=== PATIENT | male | born 1950 | race Caucasian/White ===

== ENCOUNTER 2017-02-22 21:40 | Inpatient (IN) | payer MEDICARE, MEDICAID ==
[2017-02-22 22:22] VITALS: BP 135/85
[2017-02-23] MEDS ORDERED: Magnesium Hydroxide (MOM) 30 mL UDC PO PRN (02:24)
[2017-02-23] MEDS ORDERED: Maalox 30 mL Cup PO PRN (02:24)
[2017-02-23] MEDS: INSULIN ASPART, RECOMBINANT 100 UNITS/ML SUBQ SCH ×4 (06:33→21:23)
[2017-02-23] MEDS: Lactulose 10 Gm/15 mL 30mL UDC PO SCH ×2 (08:50→16:23)
[2017-02-23] MEDS: Multivitamin Tab PO SCH (08:51)
--- NOTE | 2017-02-23 13:06 | History & Physical ---
ADMIT DATE: PATIENT IDENTIFICATION: A 67-year-old male. CHIEF COMPLAINT: "I am fine." HISTORY OF PRESENT ILLNESS: A 67-year-old male, who was admitted at [facility] under the care of ____ for further management of pneumonia associated with respiratory failure followed by a stroke and chronic alcoholism. The patient was noted to have a significant amount of psychiatric history as well. The patient was seen by Dr. Corona, who recommended inpatient psychiatric treatment. The patient is transferred for inpatient psychiatric treatment. PAST MEDICAL HISTORY: Remarkable for: 1. Diabetes. 2. Chronic alcoholism. 3. CVA. 4. DJD. 5. Psychotic disorder. MEDICATIONS AT HOME: At the time of transfer; sliding scale insulin, DuoNeb nebulizer, lorazepam, lactulose, milk of magnesium, multivitamin, Seroquel, vitamin B12, folic acid, Ambien and Tylenol. ALLERGIES: The patient is not allergic to any medication. SOCIAL HISTORY: The patient was living by himself. The patient has history of alcohol use along with smoking cigarette. 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 The patient does not take any street drug use. FAMILY MEDICAL HISTORY: Remarkable for diabetes and hypertension. REVIEW OF SYSTEMS: According to him, he feels better and he wants to go home. Denies any chest pain, short of breath, palpitation, dizziness, nausea, vomiting, or diarrhea. No dysuria, hematuria, hematochezia, or melena. No history of any seizure or syncopal episode. No weight loss or weight gain. No history of any tingling or numbness. PHYSICAL EXAMINATION: GENERAL: The patient is alert, awake, lying in the bed without any acute distress. VITAL SIGNS: Temperature 97.3, pulse 94, respiratory rate 20, blood pressure 140/86. SKIN: Warm to touch. Adequate skin turgor. No petechiae, no purpura. HEENT: Normocephalic, atraumatic. Extraocular muscles are intact. Tongue was pink and coated. Oropharynx is congested. Nasal mucosa congested. NECK: Supple. No JVD, no hepatojugular reflux, no lymphadenopathy, thyromegaly or carotid bruit. HEART: Both heart sounds are regular. Grade 2/6 systolic murmur noted. CHEST AND LUNGS: Equal in expansion with expiratory wheezing. ABDOMEN: Soft. No guarding, no rigidity. Liver and spleen not palpable. No palpable mass. EXTREMITIES: No edema, no cyanosis, no clubbing. Peripheral +1. No calf tenderness noted. NEUROLOGIC: The patient is alert, awake, follows commands. Decreased power throughout the upper and lower extremities noted. AVAILABLE DIAGNOSTIC DATA: Performed at [facility] has been reviewed. CLINICAL IMPRESSIONS: 1. Psychotic disorder. 2. Diabetes mellitus. 3. Status post extubation for respiratory failure. 4. Left lower lobe pneumonia. 5. Alcoholism. 6. Cirrhosis of liver. 7. Degenerative joint disease. 8. Fall risk. 9. Debility. PLAN: The patient is admitted at this time to Geropsych Unit. Psychiatric management by psychiatrist. Will have Glucoscan and sliding scale insulin, glycohemoglobin A1c will be checked. Multivitamin, folic acid, thiamine will be given to the patient along with psychiatric management by psychiatrist. The patient will be given nebulizer treatment and we will add steroid inhaler as well. The patient is to have fall precautions as well as followup lab and we will continue to follow this patient during the stay at the Geropsych Unit. JOB# [id number]
[2017-02-23] MEDS: Albuterol/Ipratropium Neb 3 ML AERS HHN SCH (18:47)
[2017-02-23 20:30] LABS: URINE BILIRUBIN NEGATIVE (NEGATIVE); URINE BLOOD NEGATIVE (NEGATIVE); URINE GLUCOSE (UA) NEGATIVE (NEGATIVE); URINE KETONE TRACE mg/dL (NEGATIVE); URINE PH 5.5 (4.6 - 8.0); URINE PROTEIN NEGATIVE (NEGATIVE); URINE UROBILINOGEN 0.2 E.U./dL (0.2 - 1.0)
[2017-02-23 20:33] LABS: URINE COLOR YELLOW
[2017-02-23 20:34] LABS: URINE RBC 0-2 /hpf (0-5); URINE WBC 0-2 /hpf (0-5)
[2017-02-23 20:35] LABS: URINE BACTERIA FEW /hpf (NONE SEEN); URINE EPITHELIAL CELLS OCCASIONAL /lpf (FEW)
--- NOTE | 2017-02-23 23:44 | Psychosocial Evaluation ---
DATE OF SERVICE: 02/23/2017 JUSTIFICATION FOR HOSPITALIZATION: Bizarre behaviors, aggressive behaviors, disorganized, confused, and agitated. CHIEF COMPLAINT: "I'm here for nervous breakdown." HISTORY OF PRESENT ILLNESS: This is a 67-year-old male seen at a subacute facility, agitated, delirious, disorganized, thrashing around and restraint, combative towards staff. The patient is AO to name. He states it is 1979, the month is July. He states he is here for "a nervous breakdown." PAST PSYCHIATRIC HISTORY: Unclear per . He was an alcoholic. FAMILY HISTORY: Unknown. SOCIAL HISTORY: . I did speak with the a few days ago. The patient with a long history of alcoholism many, many years. MEDICAL HISTORY: Please see full H and P. MEDICATIONS: Noted. MENTAL STATUS EXAMINATION: Stated age, in a Nori chair, restless, disorganized, and disoriented. No overt SI or HI, mumbling to himself. Poor insight, poor judgment, poor impulse control, and unpredictable behaviors. PROVISIONAL DIAGNOSES: Psychosis, unspecified; also delirium; also alcohol use disorder, severe. MEDICAL DIAGNOSIS: Please see full H and P. ESTIMATED LENGTH OF STAY: 5-7 days. ASSESSMENT: The patient is requiring inpatient hospitalization, disorganized, agitated, cannot be cared for at a lower level of care due to his aggressive and combative behaviors. PLAN: We will continue medications, titrate medications as directed. MEDICATIONS: Reviewed in details. CONDITIONS FOR DISCHARGE: Improved mood, improved affect, better control of his psychotic and agitated symptoms. [facility]# [id number]
[2017-02-24] MEDS: Albuterol/Ipratropium Neb 3 ML AERS HHN SCH ×4 (00:36→18:36)
[2017-02-24] MEDS: INSULIN ASPART, RECOMBINANT 100 UNITS/ML SUBQ SCH ×3 (06:35→17:17)
[2017-02-24] MEDS: Multivitamin Tab PO SCH (09:04)
[2017-02-24] MEDS: Lactulose 10 Gm/15 mL 30mL UDC PO SCH (09:06)
--- NOTE | 2017-02-24 09:39 | Diagnostic Imaging Report ---
KUB single view HISTORY: Distended abdomen COMPARISON: None FINDINGS: Multiple distended loops of bowel are seen including small bowel loops. Ill-defined small bowel loops are seen along the right hemiabdomen. Moderate stool is noted. No gross free air identified. IMPRESSION: Multiple distended loops of bowel with ill-defined small bowel loops along the right hemiabdomen. Findings may be due to small bowel obstruction. A Severe ileus is less likely. Recommend clinical correlation and follow up. Consider further assessment CT with oral contrast or small bowel follow-through procedure.
[2017-02-24] MEDS ORDERED: Lactulose 10 Gm/15 mL 30mL UDC PO SCH (14:00)
[2017-02-24 18:36] LABS: % EOSINOPHILS 4.5 % (0.0-5.0); % LYMPHOCYTES 15.6 % (20.0-50.0); % MONOCYTES 5.6 % (2.0-10.0); % NEUTROPHILS 74.3 % (40.0-80.0); MEAN CELL VOLUME 93.5 fl (80-99); MEAN CORPUSCULAR HEMOGLOBIN 30.9 pg (27.0-31.0); MEAN CORPUSCULAR HGB CONC 33.1 pg (28.0-36.0); MEAN PLATELET VOLUME 7.7 fl; NEUTROPHILE ABSOLUTE 9.2 Th/cmm (1.8-8.0); PLATELET COUNT 446 Th/cmm (150-400); RED BLOOD COUNT 5.61 Mil/cmm (3.80-5.80); RED CELL DISTRIBUTION WIDTH 13.3 % (11.5-20.0)
[2017-02-24 18:40] LABS: WHITE BLOOD COUNT 12.5 Th/cmm (4.8-10.8)
[2017-02-24 18:41] LABS: HEMATOCRIT 52.5 % (41.0-60); HEMOGLOBIN 17.4 gm/dL (12-16)
[2017-02-24 18:47] LABS: ALB/GLOB RATIO 1.1 (1.0-1.8); ALKALINE PHOSPHATASE 103 U/L (34-104); ANION GAP 16.4 (7.0-16.0); BILIRUBIN,TOTAL 0.7 mg/dL (0.3-1.0); BUN - UREA NITROGEN 17 mg/dL (7-25); BUN/CREATININE RATIO 13.1; CALCIUM SERUM 10.6 mg/dL (8.6-10.3); CARBON DIOXIDE 22.1 mEq/L (21.0-31.0); CHLORIDE 98 mEq/L (98-107); CREATININE - SERUM 1.3 mg/dL (0.7-1.3); GLUCOSE 142 mg/dL (70-105); POTASSIUM SERUM 3.5 mEq/L (3.5-5.1); SGOT 21 U/L (13-39); SGPT/ALT 15 U/L (7-52); SODIUM SERUM 133 mEq/L (136-145)
--- NOTE | 2017-02-24 20:49 | Progress Notes ---
DATE: The patient was seen and evaluated. The patient's chart reviewed. This is Dr. Caputo covering for Dr. Corona. SUBJECTIVE: Overnight nursing staff reported the patient continues to be nonverbal, still detoxing. Today on [id number] evaluation, the patient is still observed to be having some mild detox symptoms, minimally interactive. MENTAL STATUS EXAMINATION: In Nori chair, restless, disorganized. No overt SI, HI, but continues to mumble to himself. No side effects of the medications. He continues to mumble to himself, easily irritable. ASSESSMENT AND PLAN: The patient is a 67-year-old male who continues to be still detoxing although vital signs have been stable, tolerating the addition of quetiapine with no complications. We will continue with primary psychiatrist's treatment plan and goals as he continues to withdraw ____ detox protocol as he continues to be irritable, high risk procedures. JOB# [id number]
--- NOTE | 2017-02-25 03:39 | Progress Notes ---
DATE: 02/24/2017 IDENTIFICATION: A 67-year-old male. SUBJECTIVE: The patient seen and examined. The patient was tachycardic earlier. The patient's abdomen was distended. After straight cathing 800 mL of urine and the patient had two bowel movements, the patient is very comfortable. Heart rate is back to normal. Discussed with nursing staff about the treatment plan. The patient is currently lying in the bed without any discomfort. PHYSICAL EXAMINATION: VITAL SIGNS: On today's exam; temperature 98.2, pulse 78, respiratory rate was 18, blood pressure 132/80. HEENT: No facial asymmetry. Poor dentition noted. NECK: Supple. No JVD, no lymphadenopathy. HEART: Both heart sounds are regular. CHEST: Lungs equal in expansion with mild expiratory wheezing. ABDOMEN: Slightly distended, but soft. Bowel sounds are present. EXTREMITIES: No edema. NEUROLOGIC: Alert, awake, follows commands. CLINICAL IMPRESSION: 1. Abdominal distention with ileus, resolving since the patient has a bowel movement. 2. Diabetes mellitus. 3. Chronic alcoholism. 4. History of cerebrovascular accident. 5. Degenerative joint disease. 6. Cirrhosis of liver. 7. Left lower lobe pneumonia, status post completed antibiotic. 8. Fall risk. 9. Debility. PLAN: 1. Psychiatric evaluation management deferred to psychiatrist. 2. The patient did have a bowel movement and looks comfortable. Heart rate is back to normal. I will clinically watch the patient for signs and symptoms of obstruction for now. Stool softener will be added as well. The patient is to have p.r.n. straight cath if needed. The patient will be encouraged to drink plenty of fluid at this time. Continue other medicines as prescribed. The patient will have followup labs and we will continue to follow this patient at Geropsych Unit. Care plan has been reviewed and discussed with staff. JOB# [id number]
--- NOTE | 2017-02-25 08:07 | Diagnostic Imaging Report ---
Portable chest x-ray Time: 1924 History: Pneumonia Allowing for portable technique the heart size is normal. No focal pulmonary parenchymal processes. No hilar or mediastinal abnormalities. Impression: No acute abnormalities.
--- NOTE | 2017-02-25 08:14 | Diagnostic Imaging Report ---
KUB portable HISTORY: No interval in output Findings: Portable examination of the abdomen abdomen at 1925 hours reviewed. The study demonstrates distention of small bowel loops with air-fluid levels suggestive of small bowel obstruction. Bony structures intact. Large amount of fecal content is noted in the rectum. IMPRESSION: Most likely small bowel obstruction. Distal fecal impaction the rectum.
== END 2017-02-24 21:24 | disposition short-term general hospital (02) | DRG 885 ==
LOC: GERO 21:40
PROVIDERS: ADMIT Psychiatry & Neurology Psychiatry; ATTEND Psychiatry & Neurology Psychiatry
DX: F29 Unspecified psychosis not due to a substance or known physiological condition (principal); J18.1 Lobar pneumonia, unspecified organism; E11.9 Type 2 diabetes mellitus without complications; K74.60 Unspecified cirrhosis of liver; K56.7 Ileus, unspecified; R41.0 Disorientation, unspecified; R00.0 Tachycardia, unspecified; F10.20 Alcohol dependence, uncomplicated; F17.210 Nicotine dependence, cigarettes, uncomplicated; M19.90 Unspecified osteoarthritis, unspecified site; Z91.81 History of falling; Z86.73 Personal history of transient ischemic attack (TIA), and cerebral infarction without residual deficits; Z79.4 Long term (current) use of insulin; Z83.3 Family history of diabetes mellitus; Z82.49 Family history of ischemic heart disease and other diseases of the circulatory system
CPT/HCPCS: 36415-UA; 71010-TC; 74000-TC; 80053-TC; 81001-TC; 82150-TC; 82948-90; 83690-TC; 85025-TC; 93005; 94640; 94760; J1815; Z7610

== ENCOUNTER 2017-02-24 21:18 | Inpatient (IN) | payer MEDICARE, MEDICAID ==
[2017-02-24] MEDS: D5-0.45NS 1,000 ML IV SCH (22:00)
[2017-02-24 22:09] LABS: pH 7.34 (7.35-7.45)
[2017-02-24 22:10] LABS: BE(B) -7.5 mEq/L (-3.0-3.0); HCO3 18.7 mEq/L (20.0-26.0)
[2017-02-24 22:11] LABS: ALLEN TEST yes; FIO2 44
[2017-02-24] MEDS ORDERED: D5-0.45NS 1,000 ML IV SCH (22:30)
[2017-02-24] MEDS ORDERED: Gentamicin 80 mg/2mL Vial ONE (22:47)
[2017-02-24 22:48] VITALS: BP 149/122
[2017-02-24] MEDS: Gentamicin 160 MG in Sodium Chloride 0.9% 100 ML IV SCH (23:02)
[2017-02-24 23:31] LABS: HEMATOCRIT 50.1 % (41.0-60); HEMOGLOBIN 16.9 gm/dL (12-16); MEAN CELL VOLUME 91.9 fl (80-99); MEAN CORPUSCULAR HEMOGLOBIN 30.9 pg (27.0-31.0); MEAN CORPUSCULAR HGB CONC 33.7 pg (28.0-36.0); MEAN PLATELET VOLUME 7.7 fl; PLATELET COUNT 492 Th/cmm (150-400); RED BLOOD COUNT 5.45 Mil/cmm (3.80-5.80); RED CELL DISTRIBUTION WIDTH 13.3 % (11.5-20.0)
[2017-02-24 23:36] LABS: WHITE BLOOD COUNT 18.3 Th/cmm (4.8-10.8)
[2017-02-24] MEDS ORDERED: Diatrizoate Meglumine/Diatri 30 mL Sol ONE (23:38)
[2017-02-24 23:46] LABS: ALB/GLOB RATIO 1.1 (1.0-1.8); ANION GAP 15.7 (7.0-16.0); BUN/CREATININE RATIO 11.3; CALCIUM SERUM 9.9 mg/dL (8.6-10.3); CARBON DIOXIDE 23.9 mEq/L (21.0-31.0); CREATININE - SERUM 1.6 mg/dL (0.7-1.3); POTASSIUM SERUM 3.6 mEq/L (3.5-5.1)
[2017-02-25 00:11] LABS: URINE BILIRUBIN MODERATE (NEGATIVE); URINE BLOOD LARGE (NEGATIVE); URINE GLUCOSE (UA) NEGATIVE (NEGATIVE); URINE KETONE TRACE mg/dL (NEGATIVE); URINE PROTEIN 100 mg/dL (NEGATIVE)
[2017-02-25] MEDS ORDERED: methylPREDNISolone SS 40 mg Vial ONE (00:13)
[2017-02-25 00:17] LABS: URINE COLOR BROWN
[2017-02-25 00:31] LABS: URINE EPITHELIAL CELLS FEW /lpf (FEW); URINE RBC 25-50 /hpf (0-5)
[2017-02-25 00:32] LABS: URINE BACTERIA FEW /hpf (NONE SEEN)
[2017-02-25 00:51] LABS: BAND NEUTROPHILE 5 % (0-10); NEUTROPHILS 89 % (40-80); PLATELET ESTIMATE ADEQUATE (NORMAL); TOTAL CELLS COUNTED 100
[2017-02-25 05:33] LABS: HEMATOCRIT 51.4 % (41.0-60); MEAN CELL VOLUME 92.4 fl (80-99); MEAN CORPUSCULAR HEMOGLOBIN 30.5 pg (27.0-31.0); MEAN PLATELET VOLUME 8.1 fl; NEUTROPHILE ABSOLUTE 22.8 Th/cmm (1.8-8.0); PLATELET COUNT 440 Th/cmm (150-400); RED BLOOD COUNT 5.56 Mil/cmm (3.80-5.80); RED CELL DISTRIBUTION WIDTH 13.4 % (11.5-20.0)
[2017-02-25 05:39] LABS: WHITE BLOOD COUNT 24.4 Th/cmm (4.8-10.8)
[2017-02-25 05:45] LABS: BILIRUBIN,TOTAL 0.9 mg/dL (0.3-1.0); BUN/CREATININE RATIO 12.9; CALCIUM SERUM 9.9 mg/dL (8.6-10.3); CARBON DIOXIDE 21.4 mEq/L (21.0-31.0); CREATININE - SERUM 1.7 mg/dL (0.7-1.3); POTASSIUM SERUM 3.4 mEq/L (3.5-5.1)
[2017-02-25 05:54] LABS: BAND NEUTROPHILE 13 % (0-10); NEUTROPHILS 77 % (40-80); TOTAL CELLS COUNTED 100
[2017-02-25] MEDS: INSULIN ASPART, RECOMBINANT 100 UNITS/ML SUBQ SCH ×5 (06:49→21:00)
--- NOTE | 2017-02-25 08:06 | Diagnostic Imaging Report ---
Exam: Chest x-ray portable HISTORY NG tube insertion Findings: Portable summation of the chest at 2357 hours reviewed. The study demonstrates a NG tube with the tip in the stomach. There is evidence of for dilatation of multiple gas loops small bowel distention small bowel obstruction cannot be excluded clinical correlation and follow-up examination of the abdomen is recommended. Incidentally noted mild peribronchial thickening in the right base. Early infiltrate cannot be excluded. Mediastinal structures midline the heart is not enlarged. The costophrenic angles are clear. IMPRESSION: NG tube in the stomach. Question of small bowel obstruction. Right basilar subsegmental atelectasis versus infiltrate.
[2017-02-25 08:46] LABS: pH 7.49 (7.35-7.45)
[2017-02-25 08:47] LABS: ABG SOURCE Arterial; BE(B) 1.6 mEq/L (-3.0-3.0); HCO3 26.1 mEq/L (20.0-26.0)
[2017-02-25 08:48] LABS: CRITICAL VALUES REPORTED BY SH; FIO2 32
--- NOTE | 2017-02-25 09:13 | Diagnostic Imaging Report ---
Exam: CT examination of the abdomen pelvis. HISTORY: Vomiting. Total DLP equals 804 CTDI equals 15.2. Findings: Multiple contiguous thin section of the abdomen pelvis obtained from lower thorax to the pubic symphysis with administration of oral contrast material. Intravenous contrast was not utilized. No prior studies available comparison. Findings: The study demonstrates the right basilar infiltrate with superimposed small effusion. Left basilar atelectasis is noted. There is evidence of of normal opacification of the stomach with contrast material via the NG tube The liver parenchyma spleen are normal. The gallbladder is distended, small calculi in the most dependent portion appreciated consistent with cholelithiasis. The adrenal glands intact. The kidneys demonstrate no evidence of obstructive uropathy or nephrolithiasis. There is evidence for a multiple dilated fluid-filled loops of small bowel without visible transition point. The findings suggestive of small bowel obstruction, versus pattern lytic ileus Abdominal aorta diffusely calcified. The appendix is intact. Moderate amount of fecal content is noted in the rectum. IMPRESSION: 1. Right basilar atelectasis versus infiltrate 2. Distended stomach with contrast material, contrast material does not progress into small bowel was likely due to distention of small bowel with the air-fluid levels with and small bowel obstruction versus pattern lytic ileus. Small bowel follow-through examination might be helpful. 3. Moderate amount of fecal content in the rectum. 4. Small right inguinal fat-containing hernia. 5. Cholelithiasis
[2017-02-25] MEDS: Lactulose 10 Gm/15 mL 30mL UDC NG SCH ×2 (09:54→18:02)
--- NOTE | 2017-02-25 10:01 | Consultation ---
DATE OF CONSULTATION: 02/25/2017 GASTROENTEROLOGY CONSULTATION REQUESTING PHYSICIAN: Dale Ferraro M.D. REASON FOR CONSULTATION: GI bleed and abdominal pain. HISTORY OF PRESENT ILLNESS: A 67-year-old male admitted to the Geropsych Unit here at [facility] for psychiatric evaluation and review. The patient was noted to have hypotension and mottled appearance, and lethargy, was transferred to ICU for further evaluation. Here, he was noted to have leukocytosis and abdominal distention and coffee-ground emesis. We were asked to evaluate the patient for possible upper GI bleed and sepsis. PAST MEDICAL HISTORY: Notable for diabetes mellitus, DJD, old stroke, and alcoholism. Also, psychiatric disorder. ALLERGIES: None. SOCIAL HISTORY: Lives alone, has positive tobacco, past alcohol, no drug use. FAMILY HISTORY: No GI malignancy. REVIEW OF SYSTEMS: A comprehensive 12-point review of system was conducted and is only positive for those signs and symptoms present in history of present illness. PHYSICAL EXAMINATION: VITAL SIGNS: Temperature of 98.5, blood pressure is 97/70, pulse is 109, respirations 23, O2 sat is 96% on O2 face mask. GENERAL: The patient is well-developed, chronically ill-appearing male in no acute distress. HEENT: Sclerae nonicteric. Oropharynx is clear. CARDIOVASCULAR: Regular rate and rhythm. LUNGS: With occasional rhonchi at the bases. ABDOMEN: Soft, slightly distended, nontender, hypoactive bowel sounds. EXTREMITIES: No clubbing or edema. There is mild cyanosis. RECTAL: Deferred. LABORATORY DATA AND IMAGING: WBC 24.4, hemoglobin 17, platelet count is 440. Sodium is 133, creatinine is 1.7, lactic acid level was elevated at 3.7. Liver enzymes are normal. Albumin is 3.8. Urinalysis shows large amount of blood and moderate bilirubin, 25-50 rbc's and 6-10 wbc's. Abdominal KUB done yesterday shows nonspecific bowel gas pattern with distal fecal impaction in the rectum. Prelim CT scan of the abdomen and pelvis here shows gallstones and gallbladder distention, dilation of small and large bowel loops. IMPRESSION: 1. Upper gastrointestinal bleed, likely clinically insignificant given relatively normal hemoglobin, rule out esophagitis, gastritis, peptic ulcer disease, etc. 2. Sepsis with leukocytosis, likely intraabdominal source, could be from acute cholecystitis versus colitis or proctitis from fecal impaction versus urinary tract infection/pyelonephritis versus other etiology. 3. History of alcoholism with possible alcoholic liver disease. Labs do not suggest cirrhosis. 4. Psychiatric disorder. 5. Altered level of consciousness, rule out hepatic encephalopathy versus metabolic encephalopathy and sepsis. RECOMMENDATIONS: 1. Broad spectrum antibiotics. 2. Antiemetics. 3. Stool softeners and laxatives. We will give lactulose and Dulcolax suppositories. 4. Upper endoscopy in the next 1-2 days; pending stabilization of sepsis and leukocytosis. 5. Protonix. 6. Antiemetics. 7. Check HIDA scan. 8. Surgical evaluation for consideration of cholecystectomy if HIDA scan is positive. Thank you, Dr. Dale Ferraro for involving us in the care of your patient. If you have any further questions, please call us. [facility]# [phone] [id number]
--- NOTE | 2017-02-25 10:19 | General Progress Note ---
Subjective - Review of Systems Service Date: 02/25/17 Events since last encounter: chart reviewed BP ok fluid administration no previous abdominal surgery, abdomen is distended, minimal BS, no mass, tenderness GI consult noted SBO series ordered Objective - Results Result Diagrams: 02/25/17 05:03 02/25/17 05:03 Recent Labs: Laboratory Last Values WBC 24.4 Th/cmm (4.8-10.8) H* D 02/25/17 05:03 RBC 5.56 Mil/cmm (3.80-5.80) 02/25/17 05:03 Hgb 17.0 gm/dL (12-16) 02/25/17 05:03 Hct 51.4 % (41.0-60) 02/25/17 05:03 MCV 92.4 fl (80-99) 02/25/17 05:03 MCH 30.5 pg (27.0-31.0) 02/25/17 05:03 MCHC Differential 33.0 pg (28.0-36.0) 02/25/17 05:03 RDW 13.4 % (11.5-20.0) 02/25/17 05:03 Plt Count 440 Th/cmm (150-400) H 02/25/17 05:03 MPV 8.1 fl 02/25/17 05:03 Band Neutrophils % 13 % (0-10) H 02/25/17 05:03 Neutrophils (Manual) 77 % (40-80) 02/25/17 05:03 Lymphocytes 5 % (20-50) L 02/25/17 05:03 Monocytes 5 % (2-10) 02/25/17 05:03 Platelet Estimate ADEQUATE (NORMAL) 02/24/17 23:15 Specimen Source Arterial 02/25/17 08:30 Sample Site RB 02/25/17 08:30 pH 7.49 (7.35-7.45) H 02/25/17 08:30 pCO2 32.0 mmHg (35.0-45.0) L 02/25/17 08:30 pO2 62.0 mmHg (80.0-100.0) L 02/25/17 08:30 HCO3 26.1 mEq/L (20.0-26.0) H 02/25/17 08:30 Base Excess 1.6 mEq/L (-3.0-3.0) 02/25/17 08:30 O2 Saturation 93.0 % (92.0-100.0) 02/25/17 08:30 Florin Test NA 02/25/17 08:30 Vent Rate NA 02/25/17 08:30 Inspired O2 32 02/25/17 08:30 Tidal Volume NA 02/25/17 08:30 PEEP NA 02/25/17 08:30 Pressure (ins/psv/peep) NA 02/25/17 08:30 Critical Value SH 02/25/17 08:30 Sodium 133 mEq/L (136-145) L 02/25/17 05:03 Potassium 3.4 mEq/L (3.5-5.1) L 02/25/17 05:03 Chloride 99 mEq/L (98-107) 02/25/17 05:03 Carbon Dioxide 21.4 mEq/L (21.0-31.0) 02/25/17 05:03 Anion Gap 16.0 (7.0-16.0) 02/25/17 05:03 BUN 22 mg/dL (7-25) 02/25/17 05:03 Creatinine 1.7 mg/dL (0.7-1.3) H 02/25/17 05:03 Est GFR ( Amer) 52.1 ml/min (>90) 02/25/17 05:03 Est GFR (Non-Af Amer) 43.1 ml/min 02/25/17 05:03 BUN/Creatinine Ratio 12.9 02/25/17 05:03 Glucose 195 mg/dL (70-105) H 02/25/17 05:03 POC Glucose 168 MG/DL (70 - 105) H 02/24/17 22:22 Hemoglobin A1c % 6.1 % (4.0-6.0) H 02/25/17 05:03 Whole Bld Lactic Acid 1.91 mmol/L (0.60-1.99) 02/25/17 01:18 Calcium 9.9 mg/dL (8.6-10.3) 02/25/17 05:03 Total Bilirubin 0.9 mg/dL (0.3-1.0) 02/25/17 05:03 AST 24 U/L (13-39) 02/25/17 05:03 ALT 15 U/L (7-52) 02/25/17 05:03 Alkaline Phosphatase 105 U/L (34-104) H 02/25/17 05:03 Total Protein 7.7 gm/dL (6.0-8.3) 02/25/17 05:03 Albumin 3.8 gm/dL (4.2-5.5) L 02/25/17 05:03 Globulin 3.9 gm/dL 02/25/17 05:03 Albumin/Globulin Ratio 1.0 (1.0-1.8) 02/25/17 05:03 Urine Source RANDOM 02/24/17 22:50 Urine Color BROWN 02/24/17 22:50 Urine Clarity CLOUDY (CLEAR) 02/24/17 22:50 Urine pH 5.0 (4.6 - 8.0) 02/24/17 22:50 Ur Specific [place] >= 1.030 (1.005-1.030) 02/24/17 22:50 Urine Protein 100 mg/dL (NEGATIVE) H 02/24/17 22:50 Urine Glucose (UA) NEGATIVE mg/dL (NEGATIVE) 02/24/17 22:50 Urine Ketones TRACE mg/dL (NEGATIVE) 02/24/17 22:50 Urine Blood LARGE (NEGATIVE) H 02/24/17 22:50 Urine Nitrate NEGATIVE (NEGATIVE) 02/24/17 22:50 Urine Bilirubin MODERATE (NEGATIVE) H 02/24/17 22:50 Urine Urobilinogen 1.0 E.U./dL (0.2 - 1.0) 02/24/17 22:50 Ur Leukocyte Esterase TRACE (NEGATIVE) H 02/24/17 22:50 Urine RBC 25-50 /hpf (0-5) H 02/24/17 22:50 Urine WBC 6-10 /hpf (0-5) H 02/24/17 22:50 Ur Epithelial Cells FEW /lpf (FEW) 02/24/17 22:50 Urine Bacteria FEW /hpf (NONE SEEN) 02/24/17 22:50 - Physical Exam Vitals and I&O: Vital Signs Temp 98.5 F 02/25/17 04:00 Pulse 99 02/25/17 06:00 Resp 23 02/25/17 06:00 BP 94/66 02/25/17 06:00 Pulse Ox 95 02/25/17 06:00 Intake & Output 02/24/17 02/25/17 02/25/17 18:59 06:59 18:59 Intake Total 1064 Output Total 1200 Balance -136 Weight (lbs) 85.275 kg Intake: Intake, IV Amount 1064 D5-0.45NS 1,000 ml @ 120 960 mls/hr IV .Q8H20M [facility] Rx# :[id number] Gentamicin 160 mg In 104 Sodium Chloride 0.9% 100 ml @ 100 mls/hr IV Q12H [facility] Rx#:[id number] Output: Gastric Drainage 1100 Urine 100 Other: # Bowel Movements 1 Stool Characteristics Soft Liquid Brown Active Medications: Current Medications Gentamicin Sulfate 160 mg/ (Sodium Chloride) 104 mls @ 100 mls/hr IV Q12H [facility] Stop: 04/25/17 22:59 Last Infusion: 02/25/17 00:05 Dose: Infused Dextrose/Sodium Chloride (D5-0.45ns) 1,000 mls @ 120 mls/hr IV .Q8H20M [facility] Stop: 04/26/17 00:40 Last Infusion: 02/25/17 06:00 Dose: 120 mls/hr Ampicillin Sodium/Sulbactam (Sodium 3 gm/ Sodium Chloride) 100 mls @ 100 mls/ hr IV Q6HR [facility] Stop: 04/26/17 11:59 Insulin Aspart (Novolog) 0 units SUBQ ACHS [facility] PRN Reason: Protocol Stop: 04/26/17 05:59 Last Admin: 02/25/17 06:50 Dose: Not Given Lactulose (Cephulac) 30 gm NG BID [facility] Stop: 04/26/17 08:59 Last Admin: 02/25/17 09:54 Dose: 30 gm Miscellaneous (Gentamicin Iv Per Pharmacy) 1 ea MC PRN [facility] Stop: 04/25/17 22:29 Ondansetron HCl (Zofran) 4 mg IV Q6H PRN PRN Reason: Nausea / Vomiting Stop: 04/26/17 06:18 Pantoprazole Sodium (Protonix) 40 mg IVP Q12H [facility] Stop: 04/26/17 08:59 Last Admin: 02/25/17 09:54 Dose: 40 mg
[2017-02-25] MEDS: Gentamicin 160 MG in Sodium Chloride 0.9% 100 ML IV SCH ×2 (11:34→23:34)
[2017-02-25] MEDS: AMPICILLIN IV SCH ×2 (11:35→18:02)
[2017-02-25] MEDS: NS 0.9% IV SCH ×2 (11:35→18:02)
[2017-02-25] MEDS: SULBACTAM IV SCH ×2 (11:35→18:02)
[2017-02-25] MEDS ORDERED: Diatrizoate Meglumine/Diatri 30 mL Sol PO ONE (11:54)
[2017-02-25] MEDS: D5-0.45NS 1,000 ML IV SCH (12:09)
[2017-02-25] MEDS ORDERED: Albuterol/Ipratropium Neb 3 ML AERS HHN ONE (13:03)
[2017-02-25] MEDS: Albuterol/Ipratropium Neb 3 ML AERS HHN SCH ×2 (13:05→18:48)
--- NOTE | 2017-02-25 14:30 | History & Physical ---
ADMIT DATE: 02/25/2017 CHIEF COMPLAINT: Transfer to ICU from Psych Unit for evaluation of persistent abdominal discomfort and vomiting. HISTORY OF PRESENT ILLNESS: A 67-year-old male admitted to [facility] from [facility] for psychiatric treatment. When patient was noted to have a psychotic disorder with alcoholism. Where patient was treated for his medical problem, were stable. When patient arrived at the [facility], I was following the patient. Patient did have a abdominal distention and discomfort for that patient had a KUB done, which did reveal some ileus, but patient was given some laxative and having bowel movement and patient remained stable. Unfortunately, patient's condition deteriorated again and started more distention with vomiting and discomfort with low blood pressure. Patient was advised to be admitted to medical side for further management. Patient was admitted by me last night after patient had a workup done, which did reveal patient had leukocytosis with white count of 18.3 along with elevated creatinine of 1.6 and elevated lactic acid of 3.7 once patient was also noted to have a large amount of blood in the urine, moderate bilirubin, trace leukocyte esterase and RBC and WBCs are noted. CT scan of the abdomen and pelvis which revealed patient has small-bowel obstruction with cholelithiasis. Patient was admitted and had a NG tube, which revealed 1100 mL of fluid out and subsequently patient did feel better. Patient is scheduled to have a small bowel series. Patient looks comfortably at this time. PAST MEDICAL HISTORY: Remarkable for, 1. COPD. 2. Alcoholism. 3. Status post extubation or respiratory failure. 4. DJD. 5. Psychotic disorder. 6. History of CVA. MEDICATIONS AT HOME: At the time of transfer, sliding scale insulin, DuoNeb, lorazepam, lactulose, magnesium, multivitamin, Seroquel, B12, folic acid, Ambien and Tylenol. ALLERGIES: Patient is allergic to medications. SOCIAL HISTORY: Lives by himself, admit to have smoking cigarette and alcohol use. FAMILY MEDICAL HISTORY: Remarkable for diabetes and hypertension. REVIEW OF SYSTEMS: Patient has NG tube in. Patient does not have any abdominal discomfort, chest pain, shortness of breath, palpitation, dizziness, nausea, vomiting, diarrhea, dysuria, hematuria, hematochezia, melena and no history of any seizure, syncopal episode. No ____ weight loss or weight gain. PHYSICAL EXAMINATION: GENERAL: Patient is alert, awake, lying in the bed without any acute distress. VITAL SIGNS: Currently, temperature 96.1, pulse is 100, respiratory rate is 18, blood pressure 111/76. HEENT: Normocephalic, atraumatic. Extraocular muscles are intact. Nasogastric tube noted. Oropharynx is congested. Poor dentist are noted. NECK: Supple, no JVD, no hepatojugular reflex. No lymphadenopathy, thyromegaly or carotid bruit. HEART: Both heart sounds are regular. No S3, no S4, no murmur. CHEST: Lung equal in expansion with no expiratory wheezing. ABDOMEN: Distended, soft. Bowel sounds are sluggishly present. No palpable mass. EXTREMITIES: No edema ____ +1. No calf tenderness. NEUROLOGIC: Alert, awake, follows commands. Moving upper and lower extremity. AVAILABLE LABORATORY DATA: MAR reviewed. CLINICAL IMPRESSION: 1. Small-bowel obstruction. 2. Cholelithiasis. 3 Chronic obstructive pulmonary disease. 4. Leukocytosis. 5. Acute kidney injury. 6. Diabetes mellitus. 7. Psychotic disorder. 8. Elevated lactic acid with hypotension secondary to substance. PLAN: 1. Admit this patient to ICU. 2. NG tube. 3. IV antibiotic. 4. GI, psych and surgical consultation. 5. Small bowel series. 6. IV antibiotic. 7. Blood cultures has been done. We will wait for the report. 8. Follow up labs. 9. Follow consult recommendation. 10. Diabetes management. 11. Oxygen with nebulizer treatment. 12. Appropriate home medicine reconciliation. 13. Care plan reviewed and discussed with the staff. JOB# [id number]
[2017-02-25] MEDS ORDERED: INSULIN ASPART, RECOMBINANT 100 UNITS/ML SUBQ SCH (16:30)
[2017-02-25] MEDS: Enoxaparin 30 mg/0.3 mL 0.3mL Syr SUBQ SCH (20:50)
[2017-02-26] MEDS: Albuterol/Ipratropium Neb 3 ML AERS HHN SCH ×4 (00:31→18:50)
[2017-02-26] MEDS: NS 0.9% IV SCH ×4 (01:14→17:55)
[2017-02-26] MEDS: SULBACTAM IV SCH ×4 (01:14→17:55)
[2017-02-26] MEDS: AMPICILLIN IV SCH ×4 (01:14→17:55)
[2017-02-26 04:47] LABS: % BASOPHILS 0.3 % (0.0-2.0); % EOSINOPHILS 2.2 % (0.0-5.0); % LYMPHOCYTES 21.2 % (20.0-50.0); % NEUTROPHILS 71.3 % (40.0-80.0); MEAN CELL VOLUME 90.9 fl (80-99); MEAN CORPUSCULAR HEMOGLOBIN 30.6 pg (27.0-31.0); MEAN CORPUSCULAR HGB CONC 33.6 pg (28.0-36.0); MEAN PLATELET VOLUME 8.1 fl; NEUTROPHILE ABSOLUTE 8.4 Th/cmm (1.8-8.0); PLATELET COUNT 448 Th/cmm (150-400); RED BLOOD COUNT 4.82 Mil/cmm (3.80-5.80); RED CELL DISTRIBUTION WIDTH 13.7 % (11.5-20.0)
[2017-02-26 04:58] LABS: INR 1.18 (0.5-1.4); PROTHROMBIN TIME (TEST) 12.4 SECONDS (9.5-11.5)
[2017-02-26 05:05] LABS: HEMATOCRIT 43.8 % (41.0-60); HEMOGLOBIN 14.8 gm/dL (12-16); WHITE BLOOD COUNT 11.8 Th/cmm (4.8-10.8)
[2017-02-26 05:17] LABS: ALB/GLOB RATIO 0.9 (1.0-1.8); ALKALINE PHOSPHATASE 84 U/L (34-104); ANION GAP 12.5 (7.0-16.0); BILIRUBIN,TOTAL 0.6 mg/dL (0.3-1.0); BUN - UREA NITROGEN 31 mg/dL (7-25); BUN/CREATININE RATIO 22.1; CALCIUM SERUM 8.6 mg/dL (8.6-10.3); CARBON DIOXIDE 24.4 mEq/L (21.0-31.0); CHLORIDE 101 mEq/L (98-107); CREATININE - SERUM 1.4 mg/dL (0.7-1.3); GLUCOSE 143 mg/dL (70-105); MAGNESIUM 1.5 mg/dL (1.9-2.7); SGOT 16 U/L (13-39); SGPT/ALT 11 U/L (7-52); SODIUM SERUM 135 mEq/L (136-145)
[2017-02-26 05:28] LABS: POTASSIUM SERUM 2.9 mEq/L (3.5-5.1)
[2017-02-26] MEDS ORDERED: Mag Sulfate 2gm/50mL Premix 2 GM/50 ML BAG IV ONE (06:21)
[2017-02-26] MEDS: INSULIN ASPART, RECOMBINANT 100 UNITS/ML SUBQ SCH ×4 (06:52→20:45)
[2017-02-26] MEDS ORDERED: Potassium Chloride 40 MEQ, Lidocaine 1% 20mL Vial 25 MG in Sodium Chloride 0.9% 250 ML IV ONE (07:00)
--- NOTE | 2017-02-26 07:54 | Diagnostic Imaging Report ---
Small bowel follow-through HISTORY: Pain, obstruction Water-soluble contrast was instilled into the stomach. Nasogastric tube. There remains retention of contrast within the stomach through 11 hours. Multiple loops of dilated air-filled small bowel are seen. No significant progression contrast. IMPRESSION: 1. Retention of contrast within the gastric lumen without progression through the small bowel. Multiple loops of dilated air-filled small bowel consistent with obstruction noted. Clinical correlation is needed.
[2017-02-26] MEDS: Lactulose 10 Gm/15 mL 30mL UDC NG SCH ×2 (08:28→17:55)
[2017-02-26] MEDS: Enoxaparin 30 mg/0.3 mL 0.3mL Syr SUBQ SCH ×2 (08:28→20:44)
[2017-02-26] MEDS: Gentamicin 160 MG in Sodium Chloride 0.9% 100 ML IV SCH (11:00)
[2017-02-26] MEDS ORDERED: Lidocaine 2% Gel 5 mL TP ONE (11:00)
--- NOTE | 2017-02-26 11:59 | Diagnostic Imaging Report ---
Exam: Ultrasound examination of the abdomen. Time: Ultrasound summation the abdomen HISTORY: Alcoholic liver disease gallstones Findings: Real-time ultrasound exam of the abdomen performed multiple planes. The study demonstrates normal echogenicity liver parenchyma. Gallbladder sludge is noted. There is no evidence of cholelithiasis or pericholecystic fluid collection. The common bile duct measures 4 mm. The ankle is not seen. Right kidney measures 10.0 x 5.6 x 6 m diameter. Left kidney measures 1110.1 x 6.1 x 5 cm diameter. There is no evidence of obstructive uropathy or nephrolithiasis. The spleen is intact. No free fluid is noted. The study is limited due to large amount of intra-abdominal bowel gas. IMPRESSION: Gallbladder sludge no evidence of cholelithiasis.
--- NOTE | 2017-02-26 13:36 | Diagnostic Imaging Report ---
KUB abdominal film HISTORY: Pain The exam demonstrates several loops of dilated small bowel and nondilated large bowel. Changes associated with a distal small bowel obstruction cannot be excluded. Clinical correlation and follow-up recommended. IMPRESSION: 1. Dilated small bowel. Obstruction cannot be excluded. Clinical correlation and follow-up recommended.
--- NOTE | 2017-02-26 14:08 | Operative Report ---
DATE OF SURGERY: 02/26/2017 PROCEDURE: Esophagogastroduodenoscopy with biopsy. PREOPERATIVE DIAGNOSES: Nausea, vomiting, and upper gastrointestinal bleed. POSTPROCEDURE DIAGNOSES: 1. Mild reflux esophagitis. 2. Small hiatal hernia. 3. Mild gastritis, status post biopsy and CLOtest. 4. Few scattered duodenal bulb polyps, status post biopsy. INDICATIONS: A 67-year-old male transferred from the psych unit for hypotension and mottled appearance and lethargy. Labs showed leukocytosis and examination showed abdominal distention. He was also noted to have coffee ground emesis and an upper endoscopy is planned today for further evaluation. Prelim CT shows gallstones and gallbladder distention and dilation of small and large bowel loops. CONSENT: Informed consent was obtained from the patient's family prior to procedure after explaining risks, benefits, and alternatives including but not limited to, infection, bleeding, perforation, and . SEDATION: Monitored anesthesia care per Dr. Jolley. DESCRIPTION OF PROCEDURE AND FINDINGS: The procedure took place as an inpatient in the GI suite of [facility]. The patient was kept in the left lateral decubitus position. Adequate sedation was achieved with the above medications. An Olympus diagnostic upper endoscope was advanced through patient's mouth and into the esophagus. There was mild reflux esophagitis here. The Z-line was noted at about 40 cm from the gums. Retroflexed in the stomach revealed no GE junction masses or varices. A small hiatal hernia was identified. Mild gastritis was identified in the antrum. Biopsy was obtained from the antrum and mid body and submitted for CLOtest as well as pathology. The pyloric channel appeared normal. There were a few scattered duodenal bulb polyps that were sampled for biopsy forceps. Second portion appeared normal. Scope was withdrawn. The patient tolerated the procedure well. No complications are anticipated. RECOMMENDATIONS: 1. Follow up biopsy results and treat for H. pylori if positive. 2. Protonix. 3. Antiemetics as needed. 4. Clear liquid diet with advancement as tolerated. 5. Monitor hemoglobin and transfuse as necessary. 6. Await HIDA scan. 7. Laxatives for ileus. Thank you, Dr. Dale Ferraro for involving us in the care of this patient. If you have any further questions, please call us. JOB# [id number] BEE
[2017-02-26] MEDS ORDERED: Probiotic Screen MC PRN (16:54)
[2017-02-26] MEDS: Lactobacillus Rhamnosus 10 Billion CFU Capsule PO SCH (17:53)
--- NOTE | 2017-02-26 20:34 | Consultation ---
DATE OF CONSULTATION: 02/26/2017 REASON FOR CONSULTATION: Psych eval. HISTORY OF PRESENT ILLNESS: This is a 67-year-old male with long history of alcoholism, ongoing delirium, currently in the ICU due to medical decompensation, AO to name. He believes he is in the Emergency Room. He has no idea why he is here. He states the year is 1980, the month is June. He is not quite sure about the day of the week. The patient has been calm in the ICU, allowing care. PAST PSYCHIATRIC HISTORY: Ongoing delirium. FAMILY HISTORY: Unknown. SOCIAL HISTORY: . The patient with a long history of alcoholism, decades long. PAST MEDICAL HISTORY: Noted in the ICU. Dr. Ferraro is primary at this time. MEDICATIONS: Noted. MENTAL STATUS EXAMINATION: Stated age, lying down, calm, AO to name only, no SI, no HI. No overt psychotic symptoms, poor impulse control. PROVISIONAL DIAGNOSIS: Psychosis, unspecified; also ongoing delirium; and alcohol use disorder, severe. RECOMMENDATIONS AND PLAN: The patient is currently needing ongoing medical support. MEDICATIONS: Reviewed in details. He is currently on albuterol, ampicillin, Lovenox, insulin protocol, Ondansetron, lactulose, low-dose Seroquel during the daytime, 25 mg at night, Ondansetron as needed. We will continue to monitor and follow up. [facility]# [id number]
[2017-02-27] MEDS: Albuterol/Ipratropium Neb 3 ML AERS HHN SCH ×4 (00:24→19:06)
[2017-02-27] MEDS: AMPICILLIN IV SCH ×4 (00:45→17:53)
[2017-02-27] MEDS: SULBACTAM IV SCH ×4 (00:45→17:53)
[2017-02-27] MEDS: NS 0.9% IV SCH ×4 (00:45→17:53)
[2017-02-27] MEDS: D5-0.45NS 1,000 ML IV SCH ×3 (01:46→17:53)
[2017-02-27 06:42] LABS: % BASOPHILS 0.2 % (0.0-2.0); % EOSINOPHILS 6.7 % (0.0-5.0); % LYMPHOCYTES 24.1 % (20.0-50.0); % MONOCYTES 7.9 % (2.0-10.0); % NEUTROPHILS 61.1 % (40.0-80.0); HEMATOCRIT 45.7 % (41.0-60); HEMOGLOBIN 15.2 gm/dL (12-16); MEAN CORPUSCULAR HEMOGLOBIN 30.7 pg (27.0-31.0); MEAN CORPUSCULAR HGB CONC 33.3 pg (28.0-36.0); MEAN PLATELET VOLUME 7.7 fl; NEUTROPHILE ABSOLUTE 3.7 Th/cmm (1.8-8.0); PLATELET COUNT 393 Th/cmm (150-400); RED BLOOD COUNT 4.97 Mil/cmm (3.80-5.80); RED CELL DISTRIBUTION WIDTH 13.4 % (11.5-20.0)
[2017-02-27 06:43] LABS: WHITE BLOOD COUNT 6.1 Th/cmm (4.8-10.8)
[2017-02-27 06:59] LABS: ALKALINE PHOSPHATASE 85 U/L (34-104); BILIRUBIN,TOTAL 0.6 mg/dL (0.3-1.0); BUN - UREA NITROGEN 21 mg/dL (7-25); BUN/CREATININE RATIO 19.1; CALCIUM SERUM 8.6 mg/dL (8.6-10.3); CARBON DIOXIDE 24.3 mEq/L (21.0-31.0); CHLORIDE 105 mEq/L (98-107); CREATININE - SERUM 1.1 mg/dL (0.7-1.3); GLUCOSE 107 mg/dL (70-105); LIPASE 37 U/L (11-82); MAGNESIUM 1.8 mg/dL (1.9-2.7); POTASSIUM SERUM 3.3 mEq/L (3.5-5.1); SGOT 14 U/L (13-39); SGPT/ALT 10 U/L (7-52); SODIUM SERUM 137 mEq/L (136-145)
[2017-02-27] MEDS: INSULIN ASPART, RECOMBINANT 100 UNITS/ML SUBQ SCH ×4 (07:00→21:06)
[2017-02-27 08:08] LABS: HEP B CORE IGM Negative (Negative); HEP C ANTIBODY 0.1 s/co ratio (0.0-0.9)
--- NOTE | 2017-02-27 08:13 | Diagnostic Imaging Report ---
Nuclear medicine HIDA scan HISTORY: Pain, assess for possible cholecystitis COMPARISON: Ultrasound abdomen performed on 02/26/[address] abdomen and pelvis on 02/25/2017 Technique/procedure: 5.1 mCi of technetium labeled Choletec was administered intravenously and multiple scintigraphic images were obtained for up to 2 hours FINDINGS: Exam is limited due to patient's medical condition. Prominent hepatic uptake is demonstrated. Small bowel uptake is seen at 30 minutes. No gallbladder uptake at 60 minutes. 2 hour delayed images are inconclusive. IMPRESSION: No evidence of gallbladder uptake at 60 minutes. 2 hour delayed HIDA scan images are inconclusive. Note, acute or chronic cholecystitis cannot be excluded in the appropriate clinical setting. Clinical correlation is recommended.
--- NOTE | 2017-02-27 08:28 | Diagnostic Imaging Report ---
KUB single view HISTORY: Abdominal pain. COMPARISON: KUB performed on 02/26/2017 FINDINGS: Persistent dilated bowel loops are seen including small bowel loops. IMPRESSION: Persistent dilated bowel loops including small bowel loops which may be due to small bowel obstruction. Clinical correlation and follow-up is recommended.
[2017-02-27] MEDS: Lactobacillus Rhamnosus 10 Billion CFU Capsule PO SCH (08:45)
[2017-02-27] MEDS: Lactulose 10 Gm/15 mL 30mL UDC NG SCH ×2 (08:45→17:44)
[2017-02-27] MEDS: Enoxaparin 30 mg/0.3 mL 0.3mL Syr SUBQ SCH ×2 (09:28→20:30)
[2017-02-27] MEDS ORDERED: KCL 20mEq/100mL Premix 20 MEQ/100 ML PIGGYBACK IV ONE (10:30)
[2017-02-27] MEDS ORDERED: Gentamicin 300 MG in Sodium Chloride 0.9% 100 ML IV SCH (11:00)
--- NOTE | 2017-02-27 11:33 | General Progress Note ---
Subjective - Review of Systems Service Date: 02/27/17 Events since last encounter: discussed CT, KUB findings with Dr. Lima - still suspicious for SBO per his recommendation: repeat CT with oral contrast, leave in stomach 2 hrs and do study Objective - Results Result Diagrams: 02/27/17 06:30 02/27/17 06:30 Recent Labs: Laboratory Last Values WBC 6.1 Th/cmm (4.8-10.8) D 02/27/17 06:30 RBC 4.97 Mil/cmm (3.80-5.80) 02/27/17 06:30 Hgb 15.2 gm/dL (12-16) 02/27/17 06:30 Hct 45.7 % (41.0-60) 02/27/17 06:30 MCV 92.0 fl (80-99) 02/27/17 06:30 MCH 30.7 pg (27.0-31.0) 02/27/17 06:30 MCHC Differential 33.3 pg (28.0-36.0) 02/27/17 06:30 RDW 13.4 % (11.5-20.0) 02/27/17 06:30 Plt Count 393 Th/cmm (150-400) 02/27/17 06:30 MPV 7.7 fl 02/27/17 06:30 Neutrophils % 61.1 % (40.0-80.0) 02/27/17 06:30 Band Neutrophils % 13 % (0-10) H 02/25/17 05:03 Lymphocytes % 24.1 % (20.0-50.0) 02/27/17 06:30 Monocytes % 7.9 % (2.0-10.0) 02/27/17 06:30 Eosinophils % 6.7 % (0.0-5.0) H 02/27/17 06:30 Basophils % 0.2 % (0.0-2.0) 02/27/17 06:30 Neutrophils (Manual) 77 % (40-80) 02/25/17 05:03 Lymphocytes 5 % (20-50) L 02/25/17 05:03 Monocytes 5 % (2-10) 02/25/17 05:03 Platelet Estimate ADEQUATE (NORMAL) 02/24/17 23:15 PT 12.4 SECONDS (9.5-11.5) H 02/26/17 04:10 INR 1.18 (0.5-1.4) 02/26/17 04:10 PTT (Actin FS) 35.9 SECONDS (26.0-38.0) 02/26/17 04:10 Specimen Source Arterial 02/25/17 08:30 Sample Site RB 02/25/17 08:30 pH 7.49 (7.35-7.45) H 02/25/17 08:30 pCO2 32.0 mmHg (35.0-45.0) L 02/25/17 08:30 pO2 62.0 mmHg (80.0-100.0) L 02/25/17 08:30 HCO3 26.1 mEq/L (20.0-26.0) H 02/25/17 08:30 Base Excess 1.6 mEq/L (-3.0-3.0) 02/25/17 08:30 O2 Saturation 93.0 % (92.0-100.0) 02/25/17 08:30 Florin Test NA 02/25/17 08:30 Vent Rate NA 02/25/17 08:30 Inspired O2 32 02/25/17 08:30 Tidal Volume NA 02/25/17 08:30 PEEP NA 02/25/17 08:30 Pressure (ins/psv/peep) NA 02/25/17 08:30 Critical Value SH 02/25/17 08:30 Sodium 137 mEq/L (136-145) 02/27/17 06:30 Potassium 3.3 mEq/L (3.5-5.1) L 02/27/17 06:30 Chloride 105 mEq/L (98-107) 02/27/17 06:30 Carbon Dioxide 24.3 mEq/L (21.0-31.0) 02/27/17 06:30 Anion Gap 11.0 (7.0-16.0) 02/27/17 06:30 BUN 21 mg/dL (7-25) 02/27/17 06:30 Creatinine 1.1 mg/dL (0.7-1.3) 02/27/17 06:30 Est GFR ( Amer) > 60.0 ml/min (>90) 02/27/17 06:30 Est GFR (Non-Af Amer) > 60.0 ml/min 02/27/17 06:30 BUN/Creatinine Ratio 19.1 02/27/17 06:30 Glucose 107 mg/dL (70-105) H 02/27/17 06:30 POC Glucose 98 MG/DL (70 - 105) 02/27/17 06:59 Hemoglobin A1c % 6.1 % (4.0-6.0) H 02/25/17 05:03 Whole Bld Lactic Acid 1.30 mmol/L (0.60-1.99) 02/25/17 13:15 Calcium 8.6 mg/dL (8.6-10.3) 02/27/17 06:30 Magnesium 1.8 mg/dL (1.9-2.7) L 02/27/17 06:30 Total Bilirubin 0.6 mg/dL (0.3-1.0) 02/27/17 06:30 AST 14 U/L (13-39) 02/27/17 06:30 ALT 10 U/L (7-52) 02/27/17 06:30 Alkaline Phosphatase 85 U/L (34-104) 02/27/17 06:30 Ammonia 43 umol/L (16-53) 02/26/17 04:10 Total Protein 7.1 gm/dL (6.0-8.3) 02/27/17 06:30 Albumin 3.6 gm/dL (4.2-5.5) L 02/27/17 06:30 Globulin 3.5 gm/dL 02/27/17 06:30 Albumin/Globulin Ratio 1.0 (1.0-1.8) 02/27/17 06:30 Lipase 37 U/L (11-82) 02/27/17 06:30 Tumor Marker AFP 1.5 ng/mL (0.0-8.3) 02/26/17 04:10 Urine Source RANDOM 02/24/17 22:50 Urine Color BROWN 02/24/17 22:50 Urine Clarity CLOUDY (CLEAR) 02/24/17 22:50 Urine pH 5.0 (4.6 - 8.0) 02/24/17 22:50 Ur Specific Ulysses >= 1.030 (1.005-1.030) 02/24/17 22:50 Urine Protein 100 mg/dL (NEGATIVE) H 02/24/17 22:50 Urine Glucose (UA) NEGATIVE mg/dL (NEGATIVE) 02/24/17 22:50 Urine Ketones TRACE mg/dL (NEGATIVE) 02/24/17 22:50 Urine Blood LARGE (NEGATIVE) H 02/24/17 22:50 Urine Nitrate NEGATIVE (NEGATIVE) 02/24/17 22:50 Urine Bilirubin MODERATE (NEGATIVE) H 02/24/17 22:50 Urine Urobilinogen 1.0 E.U./dL (0.2 - 1.0) 02/24/17 22:50 Ur Leukocyte Esterase TRACE (NEGATIVE) H 02/24/17 22:50 Urine RBC 25-50 /hpf (0-5) H 02/24/17 22:50 Urine WBC 6-10 /hpf (0-5) H 02/24/17 22:50 Ur Epithelial Cells FEW /lpf (FEW) 02/24/17 22:50 Urine Bacteria FEW /hpf (NONE SEEN) 02/24/17 22:50 Gentamicin Peak 11.3 ug/ml (4.0-8.0) H 02/26/17 14:05 Gentamicin Trough 3.8 ug/ml (0.2-2.0) H 02/26/17 10:30 Hepatitis A IgM Ab Negative (Negative) 02/26/17 04:10 Hep Bs Antigen Negative (Negative) 02/26/17 04:10 Hep B Core IgM Ab Negative (Negative) 02/26/17 04:10 Hepatitis C Antibody 0.1 s/co ratio (0.0-0.9) 02/26/17 04:10 Blood Type A POSITIVE 02/26/17 04:10 Antibody Screen NEGATIVE 02/26/17 04:10 - Physical Exam Vitals and I&O: Vital Signs Temp 96.9 F 02/27/17 08:00 Pulse 98 02/27/17 11:00 Resp 18 02/27/17 11:00 BP 126/74 02/27/17 11:00 Pulse Ox 95 02/27/17 11:00 Intake & Output 02/26/17 02/27/17 02/27/17 18:59 06:59 18:59 Intake Total 330 708 Output Total 400 500 Balance -70 208 Weight (lbs) 85.275 kg 85.411 kg Intake: Intake, IV Amount 200 708 Ampicillin Sodium/ 200 200 Sulbactam 3 gm In Sodium Chloride 0.9% 100 ml @ 100 mls/hr IV Q6HR [facility] Rx #:[id number] D5-0.45NS 1,000 ml @ 120 508 mls/hr IV .Q8H20M [facility] Rx# :[id number] Oral 130 Output: Urine 400 500 Other: # Bowel Movements 4 Stool Characteristics Liquid Liquid Liquid Brown Active Medications: Current Medications Albuterol/Ipratropium (Duoneb Neb) 3 ml HHN Q6HRT [facility] Stop: 04/26/17 12:59 Last Admin: 02/27/17 06:35 Dose: 3 ml Enoxaparin Sodium (Lovenox) 30 mg SUBQ Q12HR [facility] Stop: 04/26/17 20:59 Last Admin: 02/27/17 09:28 Dose: Not Given Dextrose/Sodium Chloride (D5-0.45ns) 1,000 mls @ 120 mls/hr IV .Q8H20M [facility] Stop: 04/26/17 00:40 Last Infusion: 02/27/17 06:00 Dose: 120 mls/hr Ampicillin Sodium/Sulbactam (Sodium 3 gm/ Sodium Chloride) 100 mls @ 100 mls/ hr IV Q6HR [facility] Stop: 04/26/17 11:59 Last Infusion: 02/27/17 06:55 Dose: Infused Gentamicin Sulfate 300 mg/ (Sodium Chloride) 107.5 mls @ 100 mls/hr IV Q24H [facility] Stop: 04/28/17 10:59 Last Admin: 02/27/17 10:23 Dose: 100 mls/hr Potassium Chloride (Potassium Chloride) 20 meq in 100 mls @ 50 mls/hr IV X1 ONE Stop: 02/27/17 12:29 Insulin Aspart (Novolog) 0 units SUBQ ACHS [facility] PRN Reason: Protocol Stop: 04/26/17 05:59 Last Admin: 02/27/17 07:00 Dose: Not Given Lactobacillus Rhamnosus (Culturelle) 1 each PO DAILY [facility] Stop: 04/27/17 16:59 Last Admin: 02/27/17 08:45 Dose: Not Given Lactulose (Cephulac) 30 gm NG BID [facility] Stop: 04/26/17 08:59 Last Admin: 02/27/17 08:45 Dose: Not Given Miscellaneous (Gentamicin Iv Per Pharmacy) 1 ea MC PRN [facility] Stop: 04/25/17 22:29 Miscellaneous (Probiotic Screen) 1 ea PRN PRN PRN Reason: PROTOCOL Stop: 04/27/17 16:53 Ondansetron HCl (Zofran) 4 mg IV Q6H PRN PRN Reason: Nausea / Vomiting Stop: 04/26/17 06:18 Last Admin: 02/27/17 08:44 Dose: 4 mg Pantoprazole Sodium (Protonix) 40 mg IVP Q12H [facility] Stop: 04/26/17 08:59 Last Admin: 02/27/17 08:45 Dose: 40 mg Quetiapine Fumarate (Seroquel) 12.5 mg PO BID [facility] PRN Reason: Protocol Stop: 04/26/17 16:59 Last Admin: 02/27/17 09:43 Dose: 12.5 mg Quetiapine Fumarate (Seroquel) 25 mg PO HS [facility] PRN Reason: Protocol Stop: 04/26/17 20:59 Last Admin: 02/26/17 20:29 Dose: 25 mg
[2017-02-27] MEDS ORDERED: Diatrizoate Meglumine/Diatri 30 mL Sol PO ONE (12:08)
--- NOTE | 2017-02-27 13:14 | Pathology Report ---
[id number] Collection date: 02/26/2017 Surgeon: Dr. Leyla Farmer Specimen Description: 1. Duodenal polyp biopsy 2. Antrum biopsy Gross Description: Part 1: Received in formalin are three lomeli soft tissue fragments ranging from 0.1 to 0.2 cm in greatest dimension. Totally submitted in one cassette labeled A. Gross Description: Part II: Received in formalin are two lomeli soft tissue fragments ranging from 0.1 to 0.2 cm in greatest dimension. Totally submitted in one cassette labeled B. Microscopic Description: Part I: The histologic sections show small polypoid fragments of benign duodenal mucosa with intact intestinal villi, showing no evidence for villous abnormality. There is mild chronic inflammation present consisting of lymphocytes and plasma cells. The submucosal Nohemy's glands are somewhat prominent and polypoid in appearance. There is no evidence for atypia. Diagnosis: Part I: 1. Mild nonspecific chronic inflammation, duodenal biopsy. 2. The submucosal glands are prominent and polypoid in appearance. 3. There is no evidence for celiac disease/sprue. Microscopic Description: Part II: The histologic sections show gastric mucosa with chronic inflammation present consisting of lymphocytes and plasma cells. The Giemsa stain shows no evidence for Helicobacter pylori. Diagnosis: Part II: 1. Mild chronic gastritis, antrum biopsy. 2. The Giemsa stain is negative for Helicobacter pylori. [facility]# [id number] [facility] HOSPITALMicheline
--- NOTE | 2017-02-27 14:56 | Diagnostic Imaging Report ---
CT abdomen and pelvis without intravenous contrast Indication: Small bowel obstruction Comparison: CT abdomen and pelvis on 02/25/2017 and small bowel follow-through on 02/25/2017, Technique: Axial images were obtained from the lung bases to the bilateral proximal femurs without IV contrast. Coronal reconstructions were made. total DLP: 653, CTDI11.6 FINDINGS: Bibasilar infiltrates and mild bibasal consolidative changes are noted. Assessment of solid organs is limited to lack of IV contrast. Exam is also limited due to motion. No evidence of focal hepatic lesions. Distended gallbladder seen with small gallstones. No focal splenic. Pancreatic gland atrophy is noted with no evidence of focal lesions. No focal adrenal lesions. Nonspecific bilateral perinephric inflammatory change. No evidence of hydronephrosis or nephrolithiasis. Murphy catheter seen within the urinary bladder with increased soft tissue density of the urinary bladder noted. Distended stomach is seen with oral contrast primarily within the stomach. Multiple distended loops of small bowel are seen. Focal narrowing of small bowel loop is seen along the third portion of the duodenum. Dilated loops of small bowel are seen distal to this point. Areas of mesenteric edema are also noted. Nondilated loops of terminal ileum also noted. There is a mesenteric edema and minimal inflammatory changes and trace fluid in the mesentery is noted. No evidence of free air. Small right fat-containing hernia is noted. Moderate atherosclerosis is noted. Degenerative changes of the spine and pelvis are noted. IMPRESSION: Persistent markedly distended loops of small bowel. There is no transition of oral contrast past the stomach. Findings are most concerning for small bowel obstruction. The transition point was indeterminate. There is an area of narrowing seen along the third portion of the duodenum, however the significance of this finding is uncertain as this may be transient. Multiple dilated loops of small bowel are seen distal to this region. The terminal ileum does not appear dilated. Mesenteric edema and trace fluid likely related to patient's small bowel obstruction. No evidence of abdominal air, however follow-up is recommended. Murphy catheter within the urinary bladder with prominent soft tissue density in the bladder which may be due to a bladder wall thickening or less likely intrinsic mass lesion. Clinical correlation recommended Cholelithiasis and distended gallbladder. Small fat-containing right inguinal hernia Bibasal infiltrates. Atherosclerotic vascular disease.
[2017-02-27] MEDS ORDERED: Haloperidol Lactate 5 mg/mL 1mL Vial IM PRN (17:31)
--- NOTE | 2017-02-27 21:41 | Consultation ---
DATE OF CONSULTATION: 02/27/2017 HISTORY OF PRESENT ILLNESS: This 67-year-old male with history of alcoholism, ongoing delirium. In the ICU, he was very agitated this morning, Ativan multiple times. Staff noting he was trying to get out of bed, pulling out IVs, they had a hard time controlling his behaviors. Noted to be very confused. PAST PSYCHIATRIC HISTORY: Delirium, psychosis unspecified. MENTAL STATUS EXAMINATION: Essentially no change from my exam yesterday, confused, disoriented. Not answering questions appropriately. PROVISIONAL DIAGNOSIS: Psychosis, unspecified, ongoing delirium, alcohol use disorder, severe. RECOMMENDATIONS AND PLAN: The patient is going to the CT scanner. He is having ongoing medical problems. I did write some p.r.n. orders for nursing staff. JOB# [id number]
--- NOTE | 2017-02-27 22:13 | Progress Notes ---
DATE: 02/27/2017 SUBJECTIVE: Events noted. Tolerating oral diet without vomiting, remains confused. OBJECTIVE: VITAL SIGNS: Noted. GENERAL: The patient is well-developed, well-nourished, disheveled male, in no acute distress. HEENT: Sclerae nonicteric. Oropharynx is clear. LUNGS: Clear. CARDIOVASCULAR: Regular rate and rhythm. ABDOMEN: Soft, nontender, nondistended. EXTREMITIES: No edema. LABORATORY DATA: Complete blood count is normal. Creatinine is normal. Liver enzymes are normal. H. pylori antibodies negative. CT of the abdomen and pelvis done without contrast shows persistent markedly distended loops of small bowel without obvious transition point without use of oral contrast, findings concerning for small-bowel obstruction. Area of narrowing along the third portion of duodenum; however significance of this finding is uncertain, mesenteric edema and trace fluid related to small-bowel obstruction. Murphy catheter in the bladder, cholelithiasis, and distended gallbladder. HIDA scan shows no evidence of gallbladder uptake at 60 minutes, delayed images pending. IMPRESSION: 1. Abdominal distention with nausea, vomiting and upper gastrointestinal bleed. Upper endoscopy showed esophagitis, hiatal hernia, and gastritis. Imaging suggested either severe ileus or partial small bowel obstruction. The patient also had cholelithiasis with positive HIDA scan suggestive of acute cholecystitis. 2. Sepsis and leukocytosis, now improved. RECOMMENDATIONS: 1. Protonix. 2. Follow up biopsy results. 3. Monitor hemoglobin and transfuse as necessary. 4. Surgical evaluation for consideration of cholecystectomy and/or small-bowel obstruction repair. 5. Antibiotics [facility]# [id number] [facility]
[2017-02-28] MEDS: SULBACTAM IV SCH ×4 (00:03→19:12)
[2017-02-28] MEDS: NS 0.9% IV SCH ×2 (00:03→05:48)
[2017-02-28] MEDS: AMPICILLIN IV SCH ×2 (00:03→05:48)
[2017-02-28] MEDS: D5-0.45NS 1,000 ML IV SCH ×3 (03:40→19:15)
[2017-02-28 05:07] LABS: % BASOPHILS 0.5 % (0.0-2.0); % EOSINOPHILS 6.6 % (0.0-5.0); % LYMPHOCYTES 26.6 % (20.0-50.0); % NEUTROPHILS 57.3 % (40.0-80.0); HEMATOCRIT 42.1 % (41.0-60); HEMOGLOBIN 13.8 gm/dL (12-16); MEAN CELL VOLUME 92.2 fl (80-99); MEAN CORPUSCULAR HEMOGLOBIN 30.1 pg (27.0-31.0); MEAN CORPUSCULAR HGB CONC 32.7 pg (28.0-36.0); MEAN PLATELET VOLUME 8.1 fl; PLATELET COUNT 422 Th/cmm (150-400); RED BLOOD COUNT 4.57 Mil/cmm (3.80-5.80); RED CELL DISTRIBUTION WIDTH 13.3 % (11.5-20.0); WHITE BLOOD COUNT 6.8 Th/cmm (4.8-10.8)
[2017-02-28 05:28] LABS: ALKALINE PHOSPHATASE 77 U/L (34-104); BILIRUBIN,TOTAL 0.7 mg/dL (0.3-1.0); BUN - UREA NITROGEN 14 mg/dL (7-25); BUN/CREATININE RATIO 12.7; CALCIUM SERUM 8.4 mg/dL (8.6-10.3); CARBON DIOXIDE 23.2 mEq/L (21.0-31.0); CHLORIDE 106 mEq/L (98-107); CREATININE - SERUM 1.1 mg/dL (0.7-1.3); GLUCOSE 97 mg/dL (70-105); POTASSIUM SERUM 3.2 mEq/L (3.5-5.1); SGOT 12 U/L (13-39); SGPT/ALT 9 U/L (7-52); SODIUM SERUM 136 mEq/L (136-145)
[2017-02-28] MEDS: INSULIN ASPART, RECOMBINANT 100 UNITS/ML SUBQ SCH ×4 (06:29→22:32)
[2017-02-28] MEDS: Albuterol/Ipratropium Neb 3 ML AERS HHN SCH ×4 (07:12→19:08)
[2017-02-28] MEDS: SODIUM CHLORIDE 0.9% IV SCH ×2 (12:40→19:12)
[2017-02-28] MEDS: AMPICILLIN SODIUM IV SCH ×2 (12:40→19:12)
[2017-02-28] MEDS: KCL 20mEq/100mL Premix 20 MEQ/100 ML PIGGYBACK IV SCH ×2 (12:41→16:30)
[2017-02-28] MEDS: Enoxaparin 30 mg/0.3 mL 0.3mL Syr SUBQ SCH ×2 (12:54→22:19)
[2017-02-28] MEDS: Lactulose 10 Gm/15 mL 30mL UDC NG SCH ×2 (12:55→18:54)
[2017-02-28] MEDS: Lactobacillus Rhamnosus 10 Billion CFU Capsule PO SCH (12:55)
[2017-02-28] MEDS ORDERED: Midazolam 1mg/ml 2 ml vial IV ONE (13:54)
[2017-02-28] MEDS ORDERED: Meperidine 50 mg/mL 1mL Syr ONE (13:55)
[2017-02-28] MEDS ORDERED: Neostigmine 10mg/10mL Vial ONE (15:20)
[2017-02-28] MEDS ORDERED: Meperidine 25 mg/mL 1mL Syr IVP PRN (15:42)
[2017-02-28] MEDS ORDERED: Lactated Ringer 1,000 ML IV SCH (15:45)
--- NOTE | 2017-02-28 17:22 | Operative Report ---
DATE OF SURGERY: 02/28/2017 PREOPERATIVE DIAGNOSES: 1. Small bowel obstruction. 2. Calculous cholecystitis. 3. Previous cerebrovascular accident. 4. Psych disorder. POSTOPERATIVE DIAGNOSES: 1. Small bowel obstruction. 2. Calculous cholecystitis. 3. Previous cerebrovascular accident. 4. Psych disorder. OPERATION DONE: Exploratory laparotomy with: 1. Open cholecystectomy. 2. Resection of Meckel's diverticulum. 3. Appendectomy. SURGEON: Guillermo Rodriguez M.D. RESPIRATORY CARE SPECIALIST: Dr. Mackey. ANESTHESIOLOGIST: Lance Jolley M.D. ANESTHESIA: General. ESTIMATED BLOOD LOSS: 20 mL. OPERATIVE FINDINGS: The whole stomach, small bowel, and colon were run. The colon was redundant, the small bowel was dilated, but no area of obstruction is noted. It was a Meckel's diverticulum. The appendix was normal. The gallbladder was markedly distended with multiple gallstones. DETAILS OF PROCEDURE: The patient was given general anesthesia. The abdomen was prepped with ChloraPrep and draped in appropriate manner. A midline abdominal incision below the xiphoid carried below the umbilicus was made. Bleeders were coagulated. The abdomen was entered. There was marked distention of the abdomen and retractors were applied. The gallbladder was markedly distended and for this reason, it was removed in a retrograde fashion. The serosa was dissected from the gallbladder and left in the liver bed. Dissection was carried all the way down to the infundibulum. Following reaching the infundibulum, this was clamped with right angle clamp and suture ligated with 2-0 silk. Bleeders were coagulate. ____ was placed in this area and the rest of the abdomen was explored. The small bowel was run and Meckel's diverticulum was found. This was resected with the use of MARY instrument. The staple line was reinforced with running suture of 3-0 silk. The appendix was removed by serially clamping and suturing the mesoappendix and the base of the appendix is suture ligated with 2-0 silk following which it was transected. The rest of the abdominal exploration was negative. The abdominal incision was closed with running suture of #1 PDS and the skin was closed with subcuticular suture of 4-0 Vicryl. The patient will be sent back to ICU. He tolerated the procedure well. [facility]# [id number]
--- NOTE | 2017-02-28 17:28 | Consultation ---
DATE OF CONSULTATION: 02/26/2017 REFERRING PHYSICIAN: Dr. Ferraro. REASON FOR CONSULTATION: Abdominal pain and vomiting. Thank you for referring this patient to me. HISTORY OF PRESENT ILLNESS: This is a 67-year-old male transferred from Psych unit of the hospital. The patient complained of abdominal pain and vomiting. He was admitted for chronic alcoholism, psychotic disorder, history of CVA, and respiratory failure post intubation. LABORATORY STUDIES: Show CBC to be normal. The liver function test also normal. He underwent CT scan of the abdomen, which showed dilated bowel, raising the question of bowel obstruction. Small bowel series likewise did not progress enough to rule out this possibility. A repeat study was done on February 27 with the contrast in the stomach for 2 hours prior to the study. Again, this was read as bowel obstruction. The other findings include distended gallbladder with gallstones. PHYSICAL EXAMINATION: The patient is a poorly reactive, but there appears to be a distended abdomen. Tenderness is not easy to determine in this patient. There are decreased bowel sounds. IMPRESSION: 1. Distended gallbladder with stones. 2. Small bowel obstruction. Discussion was made with "" apparently who has been living together for over 20 years, but it is determined that she is unable to sign the consent as does the patient. Two physicians will sign the consent. PLAN: Exploratory laparotomy with bowel resection if necessary for bowel obstruction and removal of the gallbladder. We will plan for surgery. JOB# [id number] MTDD
[2017-02-28] MEDS: Chlorhexidine Gluconate 0.12% 15mL Mouthwash MM SCH (20:22)
[2017-02-28] MEDS: Haloperidol Lactate 5 mg/mL 1mL Vial IM PRN (21:09)
--- NOTE | 2017-02-28 21:12 | Consultation ---
DATE OF CONSULTATION: 02/28/2017 HISTORY OF PRESENT ILLNESS: A 67-year-old male with history of alcoholism, ongoing delirium, currently in the ICU, AO to name. He does not really know where he is. He believes he is in the Emergency Room. He has no idea why he is here. He does not know why he needs surgery, although I tried to explain this to him. He was answering nonsensically, he states the year is 1980, the month is 1983, they day of the week 1983. He denies any overt paranoia. He feels the staff is trying to help him. PAST PSYCHIATRIC HISTORY: Delirium, psychosis, unspecified. MENTAL STATUS EXAMINATION: Stated age, some eye contact. Mood "okay." Affect flat. Thought processes were confused, disoriented. No overt SI or HI. Unclear psychotic symptoms, poor insight, poor judgment, poor concentration, waxing and waning mentation, poor impulse control, difficulty with focus. PROVISIONAL DIAGNOSIS: Psychosis, unspecified, ongoing delirium, also alcohol use disorder, severe. RECOMMENDATIONS AND PLAN: The patient is not able to give consent to this time. He does not have the capacity to be involved in treatment and dispo planning decisions and treatment decisions and cannot consent to surgery. [facility]# [id number]
[2017-02-28] MEDS: Morphine Sulfate 2 mg/mL 1mL Syr IVP PRN (22:01)
[2017-03-01] MEDS: SULBACTAM IV SCH ×4 (00:23→17:33)
[2017-03-01] MEDS: AMPICILLIN SODIUM IV SCH ×4 (00:23→17:33)
[2017-03-01] MEDS: SODIUM CHLORIDE 0.9% IV SCH ×4 (00:23→17:33)
[2017-03-01] MEDS: Albuterol/Ipratropium Neb 3 ML AERS HHN SCH ×4 (01:18→19:07)
[2017-03-01] MEDS: Morphine Sulfate 2 mg/mL 1mL Syr IVP PRN ×3 (02:32→20:10)
[2017-03-01 04:54] LABS: % BASOPHILS 0.6 % (0.0-2.0); % EOSINOPHILS 1.6 % (0.0-5.0); % LYMPHOCYTES 15.6 % (20.0-50.0); % MONOCYTES 7.1 % (2.0-10.0); % NEUTROPHILS 75.1 % (40.0-80.0); HEMATOCRIT 38.7 % (41.0-60); MEAN CELL VOLUME 91.5 fl (80-99); MEAN CORPUSCULAR HEMOGLOBIN 30.8 pg (27.0-31.0); MEAN CORPUSCULAR HGB CONC 33.7 pg (28.0-36.0); MEAN PLATELET VOLUME 8.1 fl; NEUTROPHILE ABSOLUTE 7.9 Th/cmm (1.8-8.0); PLATELET COUNT 407 Th/cmm (150-400); RED BLOOD COUNT 4.23 Mil/cmm (3.80-5.80); RED CELL DISTRIBUTION WIDTH 13.2 % (11.5-20.0)
[2017-03-01 05:08] LABS: WHITE BLOOD COUNT 10.5 Th/cmm (4.8-10.8)
[2017-03-01 05:11] LABS: ALKALINE PHOSPHATASE 99 U/L (34-104); ANION GAP 9.5 (7.0-16.0); BUN - UREA NITROGEN 9 mg/dL (7-25); CALCIUM SERUM 7.8 mg/dL (8.6-10.3); CARBON DIOXIDE 21.8 mEq/L (21.0-31.0); CHLORIDE 105 mEq/L (98-107); GLUCOSE 118 mg/dL (70-105); MAGNESIUM 1.5 mg/dL (1.9-2.7); POTASSIUM SERUM 3.3 mEq/L (3.5-5.1); SGOT 31 U/L (13-39); SGPT/ALT 16 U/L (7-52); SODIUM SERUM 133 mEq/L (136-145)
[2017-03-01 05:12] LABS: BILIRUBIN,DIRECT 1.38 mg/dL (0.0-0.2)
[2017-03-01] MEDS: D5-0.45NS 1,000 ML IV SCH (07:01)
[2017-03-01] MEDS: INSULIN ASPART, RECOMBINANT 100 UNITS/ML SUBQ SCH ×4 (07:30→21:00)
--- NOTE | 2017-03-01 07:40 | Diagnostic Imaging Report ---
CHEST X-RAY: AP view INDICATION: Intubation COMPARISON: Chest x-ray 02/24/2017 FINDINGS: NG tube is stable. An ET tube is in place with tip 3.5 cm above the Lashell. Bilateral infrahilar infiltrates are noted. No effusions. Heart size is normal. IMPRESSION: Interval intubation with ET tube tip 3.5 cm above the Lashell Bilateral infrahilar infiltrates.
[2017-03-01] MEDS: Lactobacillus Rhamnosus 10 Billion CFU Capsule PO SCH (09:00)
[2017-03-01] MEDS: Enoxaparin 30 mg/0.3 mL 0.3mL Syr SUBQ SCH ×2 (09:00→20:10)
[2017-03-01] MEDS: Lactulose 10 Gm/15 mL 30mL UDC NG SCH ×2 (09:00→18:38)
[2017-03-01] MEDS: Chlorhexidine Gluconate 0.12% 15mL Mouthwash MM SCH (09:00)
--- NOTE | 2017-03-01 09:08 | General Progress Note ---
Subjective - Review of Systems Service Date: 03/01/17 Events since last encounter: labs noted abdomen soft start clear liquids Objective - Results Result Diagrams: 03/01/17 04:21 03/01/17 04:21 Recent Labs: Laboratory Last Values WBC 10.5 Th/cmm (4.8-10.8) D 03/01/17 04:21 RBC 4.23 Mil/cmm (3.80-5.80) 03/01/17 04:21 Hgb 13.0 gm/dL (12-16) 03/01/17 04:21 Hct 38.7 % (41.0-60) L 03/01/17 04:21 MCV 91.5 fl (80-99) 03/01/17 04:21 MCH 30.8 pg (27.0-31.0) 03/01/17 04:21 MCHC Differential 33.7 pg (28.0-36.0) 03/01/17 04:21 RDW 13.2 % (11.5-20.0) 03/01/17 04:21 Plt Count 407 Th/cmm (150-400) H 03/01/17 04:21 MPV 8.1 fl 03/01/17 04:21 Neutrophils % 75.1 % (40.0-80.0) 03/01/17 04:21 Band Neutrophils % 13 % (0-10) H 02/25/17 05:03 Lymphocytes % 15.6 % (20.0-50.0) L 03/01/17 04:21 Monocytes % 7.1 % (2.0-10.0) 03/01/17 04:21 Eosinophils % 1.6 % (0.0-5.0) 03/01/17 04:21 Basophils % 0.6 % (0.0-2.0) 03/01/17 04:21 Neutrophils (Manual) 77 % (40-80) 02/25/17 05:03 Lymphocytes 5 % (20-50) L 02/25/17 05:03 Monocytes 5 % (2-10) 02/25/17 05:03 Platelet Estimate ADEQUATE (NORMAL) 02/24/17 23:15 PT 12.4 SECONDS (9.5-11.5) H 02/26/17 04:10 INR 1.18 (0.5-1.4) 02/26/17 04:10 PTT (Actin FS) 35.9 SECONDS (26.0-38.0) 02/26/17 04:10 Specimen Source Arterial 02/25/17 08:30 Sample Site RB 02/25/17 08:30 pH 7.49 (7.35-7.45) H 02/25/17 08:30 pCO2 32.0 mmHg (35.0-45.0) L 02/25/17 08:30 pO2 62.0 mmHg (80.0-100.0) L 02/25/17 08:30 HCO3 26.1 mEq/L (20.0-26.0) H 02/25/17 08:30 Base Excess 1.6 mEq/L (-3.0-3.0) 02/25/17 08:30 O2 Saturation 93.0 % (92.0-100.0) 02/25/17 08:30 Florin Test NA 02/25/17 08:30 Vent Rate NA 02/25/17 08:30 Inspired O2 32 02/25/17 08:30 Tidal Volume NA 02/25/17 08:30 PEEP NA 02/25/17 08:30 Pressure (ins/psv/peep) NA 02/25/17 08:30 Critical Value SH 02/25/17 08:30 Sodium 133 mEq/L (136-145) L 03/01/17 04:21 Potassium 3.3 mEq/L (3.5-5.1) L 03/01/17 04:21 Chloride 105 mEq/L (98-107) 03/01/17 04:21 Carbon Dioxide 21.8 mEq/L (21.0-31.0) 03/01/17 04:21 Anion Gap 9.5 (7.0-16.0) 03/01/17 04:21 BUN 9 mg/dL (7-25) 03/01/17 04:21 Creatinine 1.0 mg/dL (0.7-1.3) 03/01/17 04:21 Est GFR ( Amer) > 60.0 ml/min (>90) 03/01/17 04:21 Est GFR (Non-Af Amer) > 60.0 ml/min 03/01/17 04:21 BUN/Creatinine Ratio 9.0 03/01/17 04:21 Glucose 118 mg/dL (70-105) H 03/01/17 04:21 POC Glucose 106 MG/DL (70 - 105) H 03/01/17 07:41 Hemoglobin A1c % 6.1 % (4.0-6.0) H 02/25/17 05:03 Whole Bld Lactic Acid 1.30 mmol/L (0.60-1.99) 02/25/17 13:15 Calcium 7.8 mg/dL (8.6-10.3) L 03/01/17 04:21 Magnesium 1.5 mg/dL (1.9-2.7) L 03/01/17 04:21 Total Bilirubin 2.0 mg/dL (0.3-1.0) H 03/01/17 04:21 Direct Bilirubin 1.38 mg/dL (0.0-0.2) H 03/01/17 04:21 AST 31 U/L (13-39) 03/01/17 04:21 ALT 16 U/L (7-52) 03/01/17 04:21 Alkaline Phosphatase 99 U/L (34-104) 03/01/17 04:21 Ammonia 43 umol/L (16-53) 02/26/17 04:10 Total Protein 5.5 gm/dL (6.0-8.3) L 03/01/17 04:21 Albumin 2.7 gm/dL (4.2-5.5) L 03/01/17 04:21 Globulin 2.8 gm/dL 03/01/17 04:21 Albumin/Globulin Ratio 1.0 (1.0-1.8) 03/01/17 04:21 Lipase 37 U/L (11-82) 02/27/17 06:30 Tumor Marker AFP 1.5 ng/mL (0.0-8.3) 02/26/17 04:10 Urine Source RANDOM 02/24/17 22:50 Urine Color BROWN 02/24/17 22:50 Urine Clarity CLOUDY (CLEAR) 02/24/17 22:50 Urine pH 5.0 (4.6 - 8.0) 02/24/17 22:50 Ur Specific [place] >= 1.030 (1.005-1.030) 02/24/17 22:50 Urine Protein 100 mg/dL (NEGATIVE) H 02/24/17 22:50 Urine Glucose (UA) NEGATIVE mg/dL (NEGATIVE) 02/24/17 22:50 Urine Ketones TRACE mg/dL (NEGATIVE) 02/24/17 22:50 Urine Blood LARGE (NEGATIVE) H 02/24/17 22:50 Urine Nitrate NEGATIVE (NEGATIVE) 02/24/17 22:50 Urine Bilirubin MODERATE (NEGATIVE) H 02/24/17 22:50 Urine Urobilinogen 1.0 E.U./dL (0.2 - 1.0) 02/24/17 22:50 Ur Leukocyte Esterase TRACE (NEGATIVE) H 02/24/17 22:50 Urine RBC 25-50 /hpf (0-5) H 02/24/17 22:50 Urine WBC 6-10 /hpf (0-5) H 02/24/17 22:50 Ur Epithelial Cells FEW /lpf (FEW) 02/24/17 22:50 Urine Bacteria FEW /hpf (NONE SEEN) 02/24/17 22:50 Gentamicin Peak 11.3 ug/ml (4.0-8.0) H 02/26/17 14:05 Gentamicin Trough 3.8 ug/ml (0.2-2.0) H 02/26/17 10:30 Helicobacter pylori Ab NEGATIVE (NEGATIVE) 02/26/17 11:45 Hepatitis A IgM Ab Negative (Negative) 02/26/17 04:10 Hep Bs Antigen Negative (Negative) 02/26/17 04:10 Hep B Core IgM Ab Negative (Negative) 02/26/17 04:10 Hepatitis C Antibody 0.1 s/co ratio (0.0-0.9) 02/26/17 04:10 Blood Type A POSITIVE 02/26/17 04:10 Antibody Screen NEGATIVE 02/26/17 04:10 - Physical Exam Vitals and I&O: Vital Signs Temp 98.4 F 03/01/17 04:00 Pulse 85 03/01/17 06:52 Resp 20 03/01/17 06:52 BP 122/70 03/01/17 06:00 Pulse Ox 99 03/01/17 06:52 Intake & Output 02/28/17 03/01/17 03/01/17 18:59 06:59 18:59 Intake Total 1150 1874 Output Total 950 1025 Balance 200 849 Weight (lbs) 83.092 kg 83.506 kg Intake: Intake, IV Amount 1150 1874 Ampicillin Sodium/ 50 100 Sulbactam 3 gm In Sodium Chloride 0.9% 50 ml @ 100 mls/hr IV Q6HR [facility] Rx#: [id number] D5-0.45NS 1,000 ml @ 120 1000 1774 mls/hr IV .Q8H20M [facility] Rx# :[id number] KCL 20mEq/100mL Premix 20 100 meq In 100 ml @ 50 mls/ hr IV Q2H [facility] Rx#: [id number] Output: Gastric Drainage 150 Urine 800 1025 Other: # Bowel Movements 1 Stool Characteristics Liquid Green Active Medications: Current Medications Albuterol/Ipratropium (Duoneb Neb) 3 ml HHN Q6HRT [facility] Stop: 04/26/17 12:59 Last Admin: 03/01/17 06:52 Dose: 3 ml Chlorhexidine Gluconate (Peridex) 15 ml MM 0800,2000 [facility] Stop: 04/29/17 19:59 Last Admin: 02/28/17 20:22 Dose: 15 ml Diphenhydramine HCl (Benadryl 50 Mg/Ml) 25 mg IM Q6HR PRN PRN Reason: Agitation Stop: 04/28/17 17:39 Last Admin: 02/28/17 20:33 Dose: 25 mg Enoxaparin Sodium (Lovenox) 30 mg SUBQ Q12HR [facility] Stop: 04/26/17 20:59 Last Admin: 02/28/17 22:19 Dose: Not Given Haloperidol Lactate (Haldol) 3 mg IM Q6HR PRN PRN Reason: Agitation Stop: 04/28/17 17:59 Last Admin: 02/28/17 21:09 Dose: 3 mg Dextrose/Sodium Chloride (D5-0.45ns) 1,000 mls @ 120 mls/hr IV .Q8H20M [facility] Stop: 04/26/17 00:40 Last Admin: 03/01/17 07:01 Dose: 120 mls/hr Ampicillin Sodium/Sulbactam (Sodium 3 gm/ Sodium Chloride) 50 mls @ 100 mls/hr IV Q6HR [facility] Stop: 04/29/17 11:59 Last Admin: 03/01/17 07:00 Dose: 100 mls/hr Insulin Aspart (Novolog) 0 units SUBQ ACHS [facility] PRN Reason: Protocol Stop: 04/26/17 05:59 Last Admin: 02/28/17 22:32 Dose: Not Given Lactobacillus Rhamnosus (Culturelle) 1 each PO DAILY [facility] Stop: 04/27/17 16:59 Last Admin: 02/28/17 12:55 Dose: Not Given Lactulose (Cephulac) 30 gm NG BID [facility] Stop: 04/26/17 08:59 Last Admin: 02/28/17 18:54 Dose: Not Given Lorazepam (Ativan) 1 mg IM Q6HR PRN; Protocol PRN Reason: Agitation Stop: 04/28/17 17:38 Last Admin: 02/28/17 21:08 Dose: 1 mg Miscellaneous (Gentamicin Iv Per Pharmacy) 1 ea PRN [facility] Stop: 04/25/17 22:29 Miscellaneous (Probiotic Screen) 1 ea PRN PRN PRN Reason: PROTOCOL Stop: 04/27/17 16:53 Morphine Sulfate (Morphine) 2 mg IVP Q4HR PRN PRN Reason: Pain (Moderate) Stop: 04/29/17 21:24 Last Admin: 03/01/17 02:32 Dose: 2 mg Ondansetron HCl (Zofran) 4 mg IV Q6H PRN PRN Reason: Nausea / Vomiting Stop: 04/26/17 06:18 Last Admin: 02/27/17 08:44 Dose: 4 mg Pantoprazole Sodium (Protonix) 40 mg IVP Q12H [facility] Stop: 04/26/17 08:59 Last Admin: 02/28/17 22:23 Dose: 40 mg Quetiapine Fumarate (Seroquel) 12.5 mg PO BID [facility] PRN Reason: Protocol Stop: 04/26/17 16:59 Last Admin: 02/28/17 19:04 Dose: Not Given Quetiapine Fumarate (Seroquel) 25 mg PO HS [facility] PRN Reason: Protocol Stop: 04/26/17 20:59 Last Admin: 02/28/17 22:20 Dose: Not Given
[2017-03-01] MEDS ORDERED: Mag Sulfate 2gm/50mL Premix 2 GM/50 ML BAG IV ONE (09:48)
[2017-03-01] MEDS: Haloperidol Lactate 5 mg/mL 1mL Vial IM PRN ×2 (10:49→18:35)
[2017-03-01] MEDS: KCL 20mEq/100mL Premix 20 MEQ/100 ML PIGGYBACK IV SCH ×2 (11:05→12:32)
--- NOTE | 2017-03-01 14:00 | Internal Medicine Prog Note ---
Internal Medicine Subjective - Subjective Service Date: 03/01/17 (PATIENT SELF EXTUBATED EARLIER THIS MORNING, patient doing well on o2 n/c) Patient is:: awake, confused Patient Complaints of:: congestion Per staff patient has:: other (self extubation) Internal Medicine Objective - Results Result Diagrams: 03/01/17 04:21 03/01/17 04:21 Recent Labs: Laboratory Last Values WBC 10.5 Th/cmm (4.8-10.8) D 03/01/17 04:21 RBC 4.23 Mil/cmm (3.80-5.80) 03/01/17 04:21 Hgb 13.0 gm/dL (12-16) 03/01/17 04:21 Hct 38.7 % (41.0-60) L 03/01/17 04:21 MCV 91.5 fl (80-99) 03/01/17 04:21 MCH 30.8 pg (27.0-31.0) 03/01/17 04:21 MCHC Differential 33.7 pg (28.0-36.0) 03/01/17 04:21 RDW 13.2 % (11.5-20.0) 03/01/17 04:21 Plt Count 407 Th/cmm (150-400) H 03/01/17 04:21 MPV 8.1 fl 03/01/17 04:21 Neutrophils % 75.1 % (40.0-80.0) 03/01/17 04:21 Band Neutrophils % 13 % (0-10) H 02/25/17 05:03 Lymphocytes % 15.6 % (20.0-50.0) L 03/01/17 04:21 Monocytes % 7.1 % (2.0-10.0) 03/01/17 04:21 Eosinophils % 1.6 % (0.0-5.0) 03/01/17 04:21 Basophils % 0.6 % (0.0-2.0) 03/01/17 04:21 Neutrophils (Manual) 77 % (40-80) 02/25/17 05:03 Lymphocytes 5 % (20-50) L 02/25/17 05:03 Monocytes 5 % (2-10) 02/25/17 05:03 Platelet Estimate ADEQUATE (NORMAL) 02/24/17 23:15 PT 12.4 SECONDS (9.5-11.5) H 02/26/17 04:10 INR 1.18 (0.5-1.4) 02/26/17 04:10 PTT (Actin FS) 35.9 SECONDS (26.0-38.0) 02/26/17 04:10 Specimen Source Arterial 02/25/17 08:30 Sample Site RB 02/25/17 08:30 pH 7.49 (7.35-7.45) H 02/25/17 08:30 pCO2 32.0 mmHg (35.0-45.0) L 02/25/17 08:30 pO2 62.0 mmHg (80.0-100.0) L 02/25/17 08:30 HCO3 26.1 mEq/L (20.0-26.0) H 02/25/17 08:30 Base Excess 1.6 mEq/L (-3.0-3.0) 02/25/17 08:30 O2 Saturation 93.0 % (92.0-100.0) 02/25/17 08:30 Florin Test NA 02/25/17 08:30 Vent Rate NA 02/25/17 08:30 Inspired O2 32 02/25/17 08:30 Tidal Volume NA 02/25/17 08:30 PEEP NA 02/25/17 08:30 Pressure (ins/psv/peep) NA 02/25/17 08:30 Critical Value SH 02/25/17 08:30 Sodium 133 mEq/L (136-145) L 03/01/17 04:21 Potassium 3.3 mEq/L (3.5-5.1) L 03/01/17 04:21 Chloride 105 mEq/L (98-107) 03/01/17 04:21 Carbon Dioxide 21.8 mEq/L (21.0-31.0) 03/01/17 04:21 Anion Gap 9.5 (7.0-16.0) 03/01/17 04:21 BUN 9 mg/dL (7-25) 03/01/17 04:21 Creatinine 1.0 mg/dL (0.7-1.3) 03/01/17 04:21 Est GFR ( Amer) > 60.0 ml/min (>90) 03/01/17 04:21 Est GFR (Non-Af Amer) > 60.0 ml/min 03/01/17 04:21 BUN/Creatinine Ratio 9.0 03/01/17 04:21 Glucose 118 mg/dL (70-105) H 03/01/17 04:21 POC Glucose 95 MG/DL (70 - 105) 03/01/17 12:24 Hemoglobin A1c % 6.1 % (4.0-6.0) H 02/25/17 05:03 Whole Bld Lactic Acid 1.30 mmol/L (0.60-1.99) 02/25/17 13:15 Calcium 7.8 mg/dL (8.6-10.3) L 03/01/17 04:21 Magnesium 1.5 mg/dL (1.9-2.7) L 03/01/17 04:21 Total Bilirubin 2.0 mg/dL (0.3-1.0) H 03/01/17 04:21 Direct Bilirubin 1.38 mg/dL (0.0-0.2) H 03/01/17 04:21 AST 31 U/L (13-39) 03/01/17 04:21 ALT 16 U/L (7-52) 03/01/17 04:21 Alkaline Phosphatase 99 U/L (34-104) 03/01/17 04:21 Ammonia 43 umol/L (16-53) 02/26/17 04:10 Total Protein 5.5 gm/dL (6.0-8.3) L 03/01/17 04:21 Albumin 2.7 gm/dL (4.2-5.5) L 03/01/17 04:21 Globulin 2.8 gm/dL 03/01/17 04:21 Albumin/Globulin Ratio 1.0 (1.0-1.8) 03/01/17 04:21 Lipase 37 U/L (11-82) 02/27/17 06:30 Tumor Marker AFP 1.5 ng/mL (0.0-8.3) 02/26/17 04:10 Urine Source RANDOM 02/24/17 22:50 Urine Color BROWN 02/24/17 22:50 Urine Clarity CLOUDY (CLEAR) 02/24/17 22:50 Urine pH 5.0 (4.6 - 8.0) 02/24/17 22:50 Ur Specific [place] >= 1.030 (1.005-1.030) 02/24/17 22:50 Urine Protein 100 mg/dL (NEGATIVE) H 02/24/17 22:50 Urine Glucose (UA) NEGATIVE mg/dL (NEGATIVE) 02/24/17 22:50 Urine Ketones TRACE mg/dL (NEGATIVE) 02/24/17 22:50 Urine Blood LARGE (NEGATIVE) H 02/24/17 22:50 Urine Nitrate NEGATIVE (NEGATIVE) 02/24/17 22:50 Urine Bilirubin MODERATE (NEGATIVE) H 02/24/17 22:50 Urine Urobilinogen 1.0 E.U./dL (0.2 - 1.0) 02/24/17 22:50 Ur Leukocyte Esterase TRACE (NEGATIVE) H 02/24/17 22:50 Urine RBC 25-50 /hpf (0-5) H 02/24/17 22:50 Urine WBC 6-10 /hpf (0-5) H 02/24/17 22:50 Ur Epithelial Cells FEW /lpf (FEW) 02/24/17 22:50 Urine Bacteria FEW /hpf (NONE SEEN) 02/24/17 22:50 Gentamicin 0.2 ug/mL (0.5-10.0) L 03/01/17 04:21 Gentamicin Peak 11.3 ug/ml (4.0-8.0) H 02/26/17 14:05 Gentamicin Trough 3.8 ug/ml (0.2-2.0) H 02/26/17 10:30 Helicobacter pylori Ab NEGATIVE (NEGATIVE) 02/26/17 11:45 Hepatitis A IgM Ab Negative (Negative) 02/26/17 04:10 Hep Bs Antigen Negative (Negative) 02/26/17 04:10 Hep B Core IgM Ab Negative (Negative) 02/26/17 04:10 Hepatitis C Antibody 0.1 s/co ratio (0.0-0.9) 02/26/17 04:10 Blood Type A POSITIVE 02/26/17 04:10 Antibody Screen NEGATIVE 02/26/17 04:10 - Physical Exam Vitals and I&O: Vital Signs Temp 97.8 F 03/01/17 08:00 Pulse 92 03/01/17 13:00 Resp 20 03/01/17 13:00 BP 124/62 03/01/17 08:00 Pulse Ox 96 03/01/17 13:00 Intake & Output 02/28/17 03/01/17 03/01/17 18:59 06:59 18:59 Intake Total 1150 1874 122.5 Output Total 950 1025 Balance 200 849 122.5 Weight (lbs) 183 lb 3 oz 184 lb 1.6 oz Intake: Intake, IV Amount 1150 1874 122.5 Ampicillin Sodium/ 50 100 50 Sulbactam 3 gm In Sodium Chloride 0.9% 50 ml @ 100 mls/hr IV Q6HR [facility] Rx#: [id number] D5-0.45NS 1,000 ml @ 120 1000 1774 mls/hr IV .Q8H20M [facility] Rx# :[id number] KCL 20mEq/100mL Premix 20 100 meq In 100 ml @ 50 mls/ hr IV Q2H [facility] Rx#: [id number] KCL 20mEq/100mL Premix 20 72.5 meq In 100 ml @ 50 mls/ hr IV Q2H [facility] Rx#: [id number] Output: Gastric Drainage 150 Urine 800 1025 Other: # Bowel Movements 1 Stool Characteristics Liquid Green Active Medications: Current Medications Albuterol/Ipratropium (Duoneb Neb) 3 ml HHN Q6HRT [facility] Stop: 04/26/17 12:59 Last Admin: 03/01/17 12:59 Dose: 3 ml Chlorhexidine Gluconate (Peridex) 15 ml MM 0800,2000 [facility] Stop: 04/29/17 19:59 Last Admin: 02/28/17 20:22 Dose: 15 ml Diphenhydramine HCl (Benadryl 50 Mg/Ml) 25 mg IM Q6HR PRN PRN Reason: Agitation Stop: 04/28/17 17:39 Last Admin: 02/28/17 20:33 Dose: 25 mg Enoxaparin Sodium (Lovenox) 30 mg SUBQ Q12HR [facility] Stop: 04/26/17 20:59 Last Admin: 02/28/17 22:19 Dose: Not Given Haloperidol Lactate (Haldol) 3 mg IM Q6HR PRN PRN Reason: Agitation Stop: 04/28/17 17:59 Last Admin: 03/01/17 10:49 Dose: 3 mg Dextrose/Sodium Chloride (D5-0.45ns) 1,000 mls @ 120 mls/hr IV .Q8H20M [facility] Stop: 04/26/17 00:40 Last Admin: 03/01/17 07:01 Dose: 120 mls/hr Ampicillin Sodium/Sulbactam (Sodium 3 gm/ Sodium Chloride) 50 mls @ 100 mls/hr IV Q6HR [facility] Stop: 04/29/17 11:59 Last Admin: 03/01/17 12:16 Dose: 100 mls/hr Potassium Chloride (Potassium Chloride) 20 meq in 100 mls @ 50 mls/hr IV Q2H [facility] Stop: 03/01/17 13:59 Last Admin: 03/01/17 12:32 Dose: 50 mls/hr Insulin Aspart (Novolog) 0 units SUBQ ACHS [facility] PRN Reason: Protocol Stop: 04/26/17 05:59 Last Admin: 03/01/17 12:39 Dose: Not Given Lactobacillus Rhamnosus (Culturelle) 1 each PO DAILY [facility] Stop: 04/27/17 16:59 Last Admin: 02/28/17 12:55 Dose: Not Given Lactulose (Cephulac) 30 gm NG BID [facility] Stop: 04/26/17 08:59 Last Admin: 02/28/17 18:54 Dose: Not Given Lorazepam (Ativan) 1 mg IM Q6HR PRN; Protocol PRN Reason: Agitation Stop: 04/28/17 17:38 Last Admin: 03/01/17 10:50 Dose: 1 mg Miscellaneous (Gentamicin Iv Per Pharmacy) 1 ea PRN [facility] Stop: 04/25/17 22:29 Miscellaneous (Probiotic Screen) 1 [facility] PRN PRN PRN Reason: PROTOCOL Stop: 04/27/17 16:53 Morphine Sulfate (Morphine) 2 mg IVP Q4HR PRN PRN Reason: Pain (Moderate) Stop: 04/29/17 21:24 Last Admin: 03/01/17 12:11 Dose: 2 mg Ondansetron HCl (Zofran) 4 mg IV Q6H PRN PRN Reason: Nausea / Vomiting Stop: 04/26/17 06:18 Last Admin: 02/27/17 08:44 Dose: 4 mg Pantoprazole Sodium (Protonix) 40 mg IVP Q12H [facility] Stop: 04/26/17 08:59 Last Admin: 02/28/17 22:23 Dose: 40 mg Quetiapine Fumarate (Seroquel) 12.5 mg PO BID [facility] PRN Reason: Protocol Stop: 04/26/17 16:59 Last Admin: 02/28/17 19:04 Dose: Not Given Quetiapine Fumarate (Seroquel) 25 mg PO HS [facility] PRN Reason: Protocol Stop: 04/26/17 20:59 Last Admin: 02/28/17 22:20 Dose: Not Given General: weak, other (confused) HEENT: NC/AT, PERRLA Neck: Supple Lungs: ronchi Cardiovascular: RRR, Normal S1, Normal S2 Abdomen: soft, non-tender, non-distended, positive bowel sound Extremities: excoriation Neurological: other (confused) - Procedures Procedures: Procedures Procedure Code Date APPENDECTOMY 05336 02/24/17 EXCISION OF BOWEL POUCH 80620 02/24/17 EXCISION OF SMALL INTESTINE, OPEN APPROACH [id number] 02/24/17 REMOVAL OF GALLBLADDER 45830 02/24/17 RESECTION OF APPENDIX, OPEN APPROACH [id number] 02/24/17 RESECTION OF GALLBLADDER, OPEN APPROACH [id number] 02/24/17 Internal Medicine Assmt/Plan - Assessment Assessment: SMALL BOWEL OBSTRUCTION ACUTE CHOLELITHIASIS COPD ACUTE RESPIRATORY FAILURE-S/P SELF EXTUBATION-CURRENTLY STABLY DM-2 PSYCHOSIS LACTIC ACIDOSIS - Plan Plan: inhalation treatments continue with iv antibiotics am labs monitor glucose supplemental oxygen continue current plan of care Nutritional Asmnt/Malnutr-PDOC - Dietary Evaluation Malnutrition Findings (Please click <Entered> for more info): Nutritional Asmnt/Malnutrition Start: 03/01/17 11: 48 Text: Status: Complete Freq: Document 03/01/17 11:48 MONROE (Rec: 03/01/17 12:00 MONROE SIMONS -[id number]) Nutritional Asmnt/Malnutrition Patient General Information Nutritional Screening High Risk Screening Diagnosis Septicemia Pertinent Medical Hx/Surgical Hx COPD, alcoholism, s/p extubation or respiratory failure, DJD, psychotic disorder, CVA per MD notes Pt is POD 1 s/p open cholecystectomy, resection of Meckel's diverticulum, appendectomy Subjective Information Pt seen resting in bed, +O2 mask. Pt appeared over- nourished for ht, c/w anthropometrics and verified by pt. Per RN, pt extubated himself, and new MD orders for swallow eval prior to starting clear liquid diet. Pt reported feelings of hunger. Pt denied any supplement use. Per EMR, bowel sounds hypoactive; abd is firm and distended. Output (gastric drainage): 3024/1975 (+1049 ml ) per 12 hours. Pt is not yet meeting optimal nutritional needs. Pt is not appropriate for nutrition education. Current Diet Order/ Nutrition Support Clear liquid Patient / S.O Can Pertinent Medications D5%/NaCl IV at 120 ml/hr (490 kcal/day), zofran, protonix Pertinent Labs Na 133 L, K 3.3 L, BG 118 H, POC BG 106 H, ALB 2.7 L, Tbili 2 H, WBC 10.5 WNL, Plt Count 407 H, Mg 1.5 L Nutritional Hx/Data Height 5 ft 11 in Height (Calculated Centimeters) 180.3 Current Weight (lbs) 184 lb Weight (Calculated Kilograms) 83.5 Weight (Calculated Grams) 20743.0 Usual body Weight (lbs) 183 % Usual Body Weight 101 [place] Body Weight 172 lb, 78 kg % [place] Body Weight 108 Recent Weight Change No Weight Status Overweight GI Symptoms GI Symptoms None Difficult in: Swallowing Food Allergies No Usual diet at home Pt denied any dietary restrictions Skin Integrity/Comment: Skin intact; reddened areas noted to sacrum, L heel, nicole area Current %PO Negligible < 25% Estimated Nutritional Goals BEE in Kcals: Using Current wt Calories/Kcals/Kg 30-35 kcal/kg CBW for sepsis Kcals Calculated 1672-8027 kcal/day Protein: Using Current wt Protein g/k.5-2 gm/kg CBW for sepsis Protein Calculated 126-168 gm/day Fluid: ml 2.5-3 L/day (1 ml/kcal/day for maintenance) Nutritional Problem 2. Problem Problem Possible swallowing difficulty Etiology related to recent Sx requiring intubation Signs/Symptoms: as evidenced by recent self- extubation and plans for swallow eval. 1. Problem Problem Increased nutritional needs Etiology related to metabolic demands Signs/Symptoms: as evidenced by estimated nutritional requirements for MD Dx of septicemia. Malnutrition Alert Is there a minimum of two criteria No selected? Query Text:Check all the applicable criteria. A minimum of two criteria are recommended for diagnosis of either severe or non-severe malnutrition. Malnutrition Related to Morbid Obesity Malnutrition related to morbid obesity No Intervention/Recommendation Comments * Consider advance diet if/ when medically appropriate ( clear liquid diet) * Consider ST swallow eval recommendations Expected Outcomes/Goals Expected Outcomes/Goals - Monitor provision and advancement of PO diet w/ goal of pt meeting at least 50% of estimated nutritional needs, labs trending WNL, normal GI function, and skin integrity/ wt maintenance within 2-3 days
[2017-03-01] MEDS ORDERED: D5-0.45NS 1,000 ML IV SCH (14:54)
--- NOTE | 2017-03-01 22:44 | Consultation ---
DATE OF CONSULTATION: 03/01/2017 HISTORY OF PRESENT ILLNESS: This is a 67-year-old male with history of alcoholism, ongoing delirium, currently in the ICU, AO to name. He knows he is in the hospital. He has no idea why he is here. He is not sure about the year, the month or the day of the week. He still remains confused and disoriented. However, on a positive note, staff is noting he is a lot calmer, more engaged on exam, mildly restless. PAST PSYCHIATRIC HISTORY: Noted. MENTAL STATUS EXAMINATION: Stated age. Mood is "okay." Affect flat. Thought processes were disoriented. No SI, no HI. Unclear psychotic symptoms. Waxing and waning mentation. PROVISIONAL DIAGNOSIS: Psychosis, unspecified; ongoing delirium; and alcohol use disorder, severe. RECOMMENDATIONS AND PLAN: Continue to monitor. Medications were reviewed. Currently on lactulose, Ativan p.r.n., morphine p.r.n., and Seroquel b.i.d. and at bedtime. JOB# [id number]
[2017-03-02] MEDS: AMPICILLIN SODIUM IV SCH ×5 (00:29→23:53)
[2017-03-02] MEDS: SODIUM CHLORIDE 0.9% IV SCH ×5 (00:29→23:53)
[2017-03-02] MEDS: SULBACTAM IV SCH ×5 (00:29→23:53)
[2017-03-02] MEDS: Haloperidol Lactate 5 mg/mL 1mL Vial IM PRN ×3 (00:30→14:10)
[2017-03-02] MEDS: Albuterol/Ipratropium Neb 3 ML AERS HHN SCH ×4 (01:04→18:35)
[2017-03-02 06:21] LABS: % BASOPHILS 0.6 % (0.0-2.0); % EOSINOPHILS 5.6 % (0.0-5.0); % LYMPHOCYTES 18.2 % (20.0-50.0); % MONOCYTES 10.6 % (2.0-10.0); HEMATOCRIT 37.2 % (41.0-60); HEMOGLOBIN 12.6 gm/dL (12-16); MEAN CELL VOLUME 90.6 fl (80-99); MEAN CORPUSCULAR HEMOGLOBIN 30.7 pg (27.0-31.0); MEAN CORPUSCULAR HGB CONC 33.9 pg (28.0-36.0); MEAN PLATELET VOLUME 7.8 fl; NEUTROPHILE ABSOLUTE 6.1 Th/cmm (1.8-8.0); PLATELET COUNT 424 Th/cmm (150-400); RED BLOOD COUNT 4.11 Mil/cmm (3.80-5.80); RED CELL DISTRIBUTION WIDTH 13.1 % (11.5-20.0); WHITE BLOOD COUNT 9.4 Th/cmm (4.8-10.8)
[2017-03-02] MEDS: Morphine Sulfate 2 mg/mL 1mL Syr IVP PRN ×4 (06:26→23:17)
[2017-03-02] MEDS: INSULIN ASPART, RECOMBINANT 100 UNITS/ML SUBQ SCH ×4 (06:44→21:44)
[2017-03-02 06:59] LABS: ALKALINE PHOSPHATASE 118 U/L (34-104); ANION GAP 9.6 (7.0-16.0); BILIRUBIN,TOTAL 1.4 mg/dL (0.3-1.0); BUN - UREA NITROGEN 7 mg/dL (7-25); CALCIUM SERUM 8.3 mg/dL (8.6-10.3); CARBON DIOXIDE 22.4 mEq/L (21.0-31.0); CHLORIDE 103 mEq/L (98-107); GLUCOSE 114 mg/dL (70-105); SGOT 35 U/L (13-39); SGPT/ALT 21 U/L (7-52); SODIUM SERUM 132 mEq/L (136-145)
[2017-03-02] MEDS: Lactobacillus Rhamnosus 10 Billion CFU Capsule PO SCH (09:00)
[2017-03-02] MEDS: Lactulose 10 Gm/15 mL 30mL UDC NG SCH (09:01)
[2017-03-02] MEDS: Enoxaparin 30 mg/0.3 mL 0.3mL Syr SUBQ SCH ×2 (09:01→21:14)
[2017-03-02] MEDS ORDERED: Haloperidol Lactate 5 mg/mL 1mL Vial IM PRN (09:30)
[2017-03-02] MEDS ORDERED: Mag Sulfate 2gm/50mL Premix 2 GM/50 ML BAG IV ONE (09:40)
[2017-03-02] MEDS ORDERED: Potassium Chloride 40 MEQ, Lidocaine 1% 20mL Vial 25 MG in Sodium Chloride 0.9% 250 ML IV ONE (09:40)
[2017-03-02] MEDS ORDERED: Haloperidol Lactate 5 mg/mL 1mL Vial IM ONE (09:53)
--- NOTE | 2017-03-02 11:17 | General Progress Note ---
Subjective - Review of Systems Service Date: 03/02/17 Events since last encounter: tolerating liquids increase to full liquids labs noted Objective - Results Result Diagrams: 03/02/17 06:00 03/02/17 06:00 Recent Labs: Laboratory Last Values WBC 9.4 Th/cmm (4.8-10.8) 03/02/17 06:00 RBC 4.11 Mil/cmm (3.80-5.80) 03/02/17 06:00 Hgb 12.6 gm/dL (12-16) 03/02/17 06:00 Hct 37.2 % (41.0-60) L 03/02/17 06:00 MCV 90.6 fl (80-99) 03/02/17 06:00 MCH 30.7 pg (27.0-31.0) 03/02/17 06:00 MCHC Differential 33.9 pg (28.0-36.0) 03/02/17 06:00 RDW 13.1 % (11.5-20.0) 03/02/17 06:00 Plt Count 424 Th/cmm (150-400) H 03/02/17 06:00 MPV 7.8 fl 03/02/17 06:00 Neutrophils % 65.0 % (40.0-80.0) 03/02/17 06:00 Band Neutrophils % 13 % (0-10) H 02/25/17 05:03 Lymphocytes % 18.2 % (20.0-50.0) L 03/02/17 06:00 Monocytes % 10.6 % (2.0-10.0) H 03/02/17 06:00 Eosinophils % 5.6 % (0.0-5.0) H 03/02/17 06:00 Basophils % 0.6 % (0.0-2.0) 03/02/17 06:00 Neutrophils (Manual) 77 % (40-80) 02/25/17 05:03 Lymphocytes 5 % (20-50) L 02/25/17 05:03 Monocytes 5 % (2-10) 02/25/17 05:03 Platelet Estimate ADEQUATE (NORMAL) 02/24/17 23:15 PT 12.4 SECONDS (9.5-11.5) H 02/26/17 04:10 INR 1.18 (0.5-1.4) 02/26/17 04:10 PTT (Actin FS) 35.9 SECONDS (26.0-38.0) 02/26/17 04:10 Specimen Source Arterial 02/25/17 08:30 Sample Site RB 02/25/17 08:30 pH 7.49 (7.35-7.45) H 02/25/17 08:30 pCO2 32.0 mmHg (35.0-45.0) L 02/25/17 08:30 pO2 62.0 mmHg (80.0-100.0) L 02/25/17 08:30 HCO3 26.1 mEq/L (20.0-26.0) H 02/25/17 08:30 Base Excess 1.6 mEq/L (-3.0-3.0) 02/25/17 08:30 O2 Saturation 93.0 % (92.0-100.0) 02/25/17 08:30 Florin Test NA 02/25/17 08:30 Vent Rate NA 02/25/17 08:30 Inspired O2 32 02/25/17 08:30 Tidal Volume NA 02/25/17 08:30 PEEP NA 02/25/17 08:30 Pressure (ins/psv/peep) NA 02/25/17 08:30 Critical Value SH 02/25/17 08:30 Sodium 132 mEq/L (136-145) L 03/02/17 06:00 Potassium 3.0 mEq/L (3.5-5.1) L 03/02/17 06:00 Chloride 103 mEq/L (98-107) 03/02/17 06:00 Carbon Dioxide 22.4 mEq/L (21.0-31.0) 03/02/17 06:00 Anion Gap 9.6 (7.0-16.0) 03/02/17 06:00 BUN 7 mg/dL (7-25) 03/02/17 06:00 Creatinine 1.0 mg/dL (0.7-1.3) 03/02/17 06:00 Est GFR ( Amer) > 60.0 ml/min (>90) 03/02/17 06:00 Est GFR (Non-Af Amer) > 60.0 ml/min 03/02/17 06:00 BUN/Creatinine Ratio 7.0 03/02/17 06:00 Glucose 114 mg/dL (70-105) H 03/02/17 06:00 POC Glucose 117 MG/DL (70 - 105) H 03/02/17 06:06 Hemoglobin A1c % 6.1 % (4.0-6.0) H 02/25/17 05:03 Whole Bld Lactic Acid 1.30 mmol/L (0.60-1.99) 02/25/17 13:15 Calcium 8.3 mg/dL (8.6-10.3) L 03/02/17 06:00 Magnesium 1.7 mg/dL (1.9-2.7) L 03/02/17 06:00 Total Bilirubin 1.4 mg/dL (0.3-1.0) H 03/02/17 06:00 Direct Bilirubin 1.38 mg/dL (0.0-0.2) H 03/01/17 04:21 AST 35 U/L (13-39) 03/02/17 06:00 ALT 21 U/L (7-52) 03/02/17 06:00 Alkaline Phosphatase 118 U/L (34-104) H 03/02/17 06:00 Ammonia 43 umol/L (16-53) 02/26/17 04:10 Total Protein 5.7 gm/dL (6.0-8.3) L 03/02/17 06:00 Albumin 2.8 gm/dL (4.2-5.5) L 03/02/17 06:00 Globulin 2.9 gm/dL 03/02/17 06:00 Albumin/Globulin Ratio 1.0 (1.0-1.8) 03/02/17 06:00 Lipase 37 U/L (11-82) 02/27/17 06:30 Tumor Marker AFP 1.5 ng/mL (0.0-8.3) 02/26/17 04:10 Urine Source RANDOM 02/24/17 22:50 Urine Color BROWN 02/24/17 22:50 Urine Clarity CLOUDY (CLEAR) 02/24/17 22:50 Urine pH 5.0 (4.6 - 8.0) 02/24/17 22:50 Ur Specific N[place] >= 1.030 (1.005-1.030) 02/24/17 22:50 Urine Protein 100 mg/dL (NEGATIVE) H 02/24/17 22:50 Urine Glucose (UA) NEGATIVE mg/dL (NEGATIVE) 02/24/17 22:50 Urine Ketones TRACE mg/dL (NEGATIVE) 02/24/17 22:50 Urine Blood LARGE (NEGATIVE) H 02/24/17 22:50 Urine Nitrate NEGATIVE (NEGATIVE) 02/24/17 22:50 Urine Bilirubin MODERATE (NEGATIVE) H 02/24/17 22:50 Urine Urobilinogen 1.0 E.U./dL (0.2 - 1.0) 02/24/17 22:50 Ur Leukocyte Esterase TRACE (NEGATIVE) H 02/24/17 22:50 Urine RBC 25-50 /hpf (0-5) H 02/24/17 22:50 Urine WBC 6-10 /hpf (0-5) H 02/24/17 22:50 Ur Epithelial Cells FEW /lpf (FEW) 02/24/17 22:50 Urine Bacteria FEW /hpf (NONE SEEN) 02/24/17 22:50 Gentamicin 0.2 ug/mL (0.5-10.0) L 03/01/17 04:21 Gentamicin Peak 11.3 ug/ml (4.0-8.0) H 02/26/17 14:05 Gentamicin Trough 3.8 ug/ml (0.2-2.0) H 02/26/17 10:30 Helicobacter pylori Ab NEGATIVE (NEGATIVE) 02/26/17 11:45 Hepatitis A IgM Ab Negative (Negative) 02/26/17 04:10 Hep Bs Antigen Negative (Negative) 02/26/17 04:10 Hep B Core IgM Ab Negative (Negative) 02/26/17 04:10 Hepatitis C Antibody 0.1 s/co ratio (0.0-0.9) 02/26/17 04:10 Blood Type A POSITIVE 02/26/17 04:10 Antibody Screen NEGATIVE 02/26/17 04:10 - Physical Exam Vitals and I&O: Vital Signs Temp 98 F 03/02/17 04:00 Pulse 87 03/02/17 07:02 Resp 18 03/02/17 07:02 BP 109/71 03/02/17 07:00 Pulse Ox 100 03/02/17 07:02 Intake & Output 03/01/17 03/02/17 03/02/17 18:59 06:59 18:59 Intake Total 322.5 150 50 Output Total 1700 1600 Balance -1377.5 -1450 50 Weight (lbs) 83.506 kg 84.368 kg Intake: Intake, IV Amount 322.5 50 50 Ampicillin Sodium/ 150 50 50 Sulbactam 3 gm In Sodium Chloride 0.9% 50 ml @ 100 mls/hr IV Q6HR [facility] Rx#: [id number] KCL 20mEq/100mL Premix 20 172.5 meq In 100 ml @ 50 mls/ hr IV Q2H [facility] Rx#: [id number] Oral 100 Output: Urine 1700 1600 Other: # Bowel Movements 0 Active Medications: Current Medications Albuterol/Ipratropium (Duoneb Neb) 3 ml HHN Q6HRT [facility] Stop: 04/26/17 12:59 Last Admin: 03/02/17 07:01 Dose: 3 ml Diphenhydramine HCl (Benadryl 50 Mg/Ml) 25 mg IM Q6HR PRN PRN Reason: Agitation Stop: 04/28/17 17:39 Last Admin: 03/02/17 06:43 Dose: 25 mg Enoxaparin Sodium (Lovenox) 30 mg SUBQ Q12HR [facility] Stop: 04/26/17 20:59 Last Admin: 03/02/17 09:01 Dose: 30 mg Haloperidol Lactate (Haldol) 3 mg IM Q6HR PRN PRN Reason: Agitation Stop: 05/01/17 10:27 Ampicillin Sodium/Sulbactam (Sodium 3 gm/ Sodium Chloride) 50 mls @ 100 mls/hr IV Q6HR [facility] Stop: 04/29/17 11:59 Last Infusion: 03/02/17 09:42 Dose: Infused Dextrose/Sodium Chloride (D5-0.45ns) 1,000 mls @ 100 mls/hr IV .Q10H [facility] Stop: 04/26/17 00:40 Last Admin: 03/02/17 00:28 Dose: 100 mls/hr Potassium Chloride 40 meq/Lidocaine HCl 25 mg/ Sodium Chloride 272.5 mls @ 68 mls/hr IV X1 ONE Stop: 03/02/17 13:40 Magnesium Sulfate (Magnesium Sulfate Premix) 2 gm in 50 mls @ 25 mls/hr IV X1 ONE Stop: 03/02/17 11:39 Insulin Aspart (Novolog) 0 units SUBQ ACHS [facility] PRN Reason: Protocol Stop: 04/26/17 05:59 Last Admin: 03/02/17 06:44 Dose: Not Given Lactobacillus Rhamnosus (Culturelle) 1 each PO DAILY [facility] Stop: 04/27/17 16:59 Last Admin: 03/01/17 09:00 Dose: Not Given Lactulose (Cephulac) 30 gm NG BID [facility] Stop: 04/26/17 08:59 Last Admin: 03/02/17 09:01 Dose: 30 gm Lorazepam (Ativan) 1 mg IM Q6HR PRN; Protocol PRN Reason: Agitation Stop: 04/28/17 17:38 Last Admin: 03/02/17 06:44 Dose: 1 mg Miscellaneous (Gentamicin Iv Per Pharmacy) 1 ea PRN [facility] Stop: 04/25/17 22:29 Miscellaneous (Probiotic Screen) 1 ea PRN PRN PRN Reason: PROTOCOL Stop: 04/27/17 16:53 Morphine Sulfate (Morphine) 2 mg IVP Q4HR PRN PRN Reason: Pain (Moderate) Stop: 04/29/17 21:24 Last Admin: 03/02/17 06:26 Dose: 2 mg Ondansetron HCl (Zofran) 4 mg IV Q6H PRN PRN Reason: Nausea / Vomiting Stop: 04/26/17 06:18 Last Admin: 02/27/17 08:44 Dose: 4 mg Pantoprazole Sodium (Protonix) 40 mg IVP Q12H [facility] Stop: 04/26/17 08:59 Last Admin: 03/02/17 09:01 Dose: 40 mg Quetiapine Fumarate (Seroquel) 25 mg PO BID [facility] PRN Reason: Protocol Stop: 05/01/17 09:29 Quetiapine Fumarate (Seroquel) 50 mg PO HS [facility] PRN Reason: Protocol Stop: 05/01/17 20:59 - Procedures Procedures: Procedures Procedure Code Date APPENDECTOMY 28485 02/24/17 EXCISION OF BOWEL POUCH 47626 02/24/17 EXCISION OF SMALL INTESTINE, OPEN APPROACH [id number] 02/24/17 REMOVAL OF GALLBLADDER 03635 02/24/17 RESECTION OF APPENDIX, OPEN APPROACH [id number] 02/24/17 RESECTION OF GALLBLADDER, OPEN APPROACH [id number] 02/24/17 RESPIRATORY VENTILATION, LESS THAN 24 CONSECUTIVE HOURS [id number] 02/24/17 [facility] INPAT INIT 79568 02/24/17 Nutritional Asmnt/Malnutr-PDOC - Dietary Evaluation Malnutrition Findings (Please click <Entered> for more info): Nutritional Asmnt/Malnutrition Start: 03/01/17 11: 48 Text: Status: Complete Freq: Document 03/01/17 11:48 MONROE (Rec: 03/01/17 12:00 MONROE SIMONS -[id number]) Nutritional Asmnt/Malnutrition Patient General Information Nutritional Screening High Risk Screening Diagnosis Septicemia Pertinent Medical Hx/Surgical Hx COPD, alcoholism, s/p extubation or respiratory failure, DJD, psychotic disorder, CVA per MD notes Pt is POD 1 s/p open cholecystectomy, resection of Meckel's diverticulum, appendectomy Subjective Information Pt seen resting in bed, +O2 mask. Pt appeared over- nourished for ht, c/w anthropometrics and verified by pt. Per RN, pt extubated himself, and new MD orders for swallow eval prior to starting clear liquid diet. Pt reported feelings of hunger. Pt denied any supplement use. Per EMR, bowel sounds hypoactive; abd is firm and distended. Output (gastric drainage): 3024/1975 (+1049 ml ) per 12 hours. Pt is not yet meeting optimal nutritional needs. Pt is not appropriate for nutrition education. Current Diet Order/ Nutrition Support Clear liquid Patient / S.O Can Pertinent Medications D5%/NaCl IV at 120 ml/hr (490 kcal/day), zofran, protonix Pertinent Labs Na 133 L, K 3.3 L, BG 118 H, POC BG 106 H, ALB 2.7 L, Tbili 2 H, WBC 10.5 WNL, Plt Count 407 H, Mg 1.5 L Nutritional Hx/Data Height 1.8 m Height (Calculated Centimeters) 180.3 Current Weight (lbs) 83.461 kg Weight (Calculated Kilograms) 83.5 Weight (Calculated Grams) 22201.0 Usual body Weight (lbs) 183 % Usual Body Weight 101 [place] Body Weight 172 lb, 78 kg % [place] Body Weight 108 Recent Weight Change No Weight Status Overweight GI Symptoms GI Symptoms None Difficult in: Swallowing Food Allergies No Usual diet at home Pt denied any dietary restrictions Skin Integrity/Comment: Skin intact; reddened areas noted to sacrum, L heel, nicole area Current %PO Negligible < 25% Estimated Nutritional Goals BEE in Kcals: Using Current wt Calories/Kcals/Kg 30-35 kcal/kg CBW for sepsis Kcals Calculated 4976-9999 kcal/day Protein: Using Current wt Protein g/k.5-2 gm/kg CBW for sepsis Protein Calculated 126-168 gm/day Fluid: ml 2.5-3 L/day (1 ml/kcal/day for maintenance) Nutritional Problem 2. Problem Problem Possible swallowing difficulty Etiology related to recent Sx requiring intubation Signs/Symptoms: as evidenced by recent self- extubation and plans for swallow eval. 1. Problem Problem Increased nutritional needs Etiology related to metabolic demands Signs/Symptoms: as evidenced by estimated nutritional requirements for MD Dx of septicemia. Malnutrition Alert Is there a minimum of two criteria No selected? Query Text:Check all the applicable criteria. A minimum of two criteria are recommended for diagnosis of either severe or non-severe malnutrition. Malnutrition Related to Morbid Obesity Malnutrition related to morbid obesity No Intervention/Recommendation Comments * Consider advance diet if/ when medically appropriate ( clear liquid diet) * Consider ST swallow eval recommendations Expected Outcomes/Goals Expected Outcomes/Goals - Monitor provision and advancement of PO diet w/ goal of pt meeting at least 50% of estimated nutritional needs, labs trending WNL, normal GI function, and skin integrity/ wt maintenance within 2-3 days
[2017-03-02] MEDS ORDERED: Gentamicin 160 MG in Sodium Chloride 0.9% 100 ML IV SCH (14:00)
--- NOTE | 2017-03-02 15:24 | Pathology Report ---
[id number] Collection Date: 02/28/2017 Surgeon: Dr. Rick Rodriguez Specimen Description: 1. Gallbladder 2. Appendix 3. Meckel's Gross Description: Part I: Received in formalin is a distended gallbladder measuring 7.5 x 3 x 2 cm with a smooth, glistening, lomeli-linn outer surface. Opening the gallbladder reveals multiple yellowish gallstones, ranging from 0.2 to 0.5 cm in greatest dimension. The gallbladder mucosa has a velvety yellowish-green appearance with the gallbladder wall ranging from 0.2 to 0.4 cm in thickness. [employer] sections are submitted in one cassette labeled A. Gross Description: Part II: Received in formalin is a 4.0 cm in length x 0.5 cm in diameter appendix with a smooth, lomeli outer surface. Sectioning shows an intact appendix wall and lumen with no evidence for exudate. [employer] sections are submitted in one cassette labeled B. Gross Description: Part III: Received in formalin is a 4 cm in length x 2.5 cm in outer diameter segment of small bowel with a smooth, lomeli outer surface showing no evidence for adhesions and no evidence for exudate. Opening the small bowel shows intact, folded, lomeli mucosa with no evidence for ulceration and no focal lesions. [employer] sections are submitted in two cassettes labeled C1 and C2. Microscopic Description: Part I: The histologic sections show gallbladder wall and mucosa with chronic inflammation present consisting of lymphocytes and plasma cells. Diagnosis: Part I: Chronic cholecystitis and cholelithiasis, gallbladder. Microscopic Description: Part II: The histologic sections show appendix with no inflammatory changes appreciated. Diagnosis: Part II: Normal appendix. Microscopic Description: Part III: The histologic sections show small bowel with intact wall and mucosa. There is no evidence for ulceration or inflammation. Diagnosis: Part III: Short segment of small bowel consistent with the clinical impression of Meckel's diverticulum. [facility]# [id number] [facility]
--- NOTE | 2017-03-02 19:54 | Internal Medicine Prog Note ---
Internal Medicine Subjective - Subjective Service Date: 03/02/17 Patient seen and examined:: with staff Patient is:: awake, confused Patient Complaints of:: congestion Per staff patient has:: other (self extubation) Internal Medicine Objective - Results Result Diagrams: 03/02/17 06:00 03/02/17 06:00 Recent Labs: Laboratory Last Values WBC 9.4 Th/cmm (4.8-10.8) 03/02/17 06:00 RBC 4.11 Mil/cmm (3.80-5.80) 03/02/17 06:00 Hgb 12.6 gm/dL (12-16) 03/02/17 06:00 Hct 37.2 % (41.0-60) L 03/02/17 06:00 MCV 90.6 fl (80-99) 03/02/17 06:00 MCH 30.7 pg (27.0-31.0) 03/02/17 06:00 MCHC Differential 33.9 pg (28.0-36.0) 03/02/17 06:00 RDW 13.1 % (11.5-20.0) 03/02/17 06:00 Plt Count 424 Th/cmm (150-400) H 03/02/17 06:00 MPV 7.8 fl 03/02/17 06:00 Neutrophils % 65.0 % (40.0-80.0) 03/02/17 06:00 Band Neutrophils % 13 % (0-10) H 02/25/17 05:03 Lymphocytes % 18.2 % (20.0-50.0) L 03/02/17 06:00 Monocytes % 10.6 % (2.0-10.0) H 03/02/17 06:00 Eosinophils % 5.6 % (0.0-5.0) H 03/02/17 06:00 Basophils % 0.6 % (0.0-2.0) 03/02/17 06:00 Neutrophils (Manual) 77 % (40-80) 02/25/17 05:03 Lymphocytes 5 % (20-50) L 02/25/17 05:03 Monocytes 5 % (2-10) 02/25/17 05:03 Platelet Estimate ADEQUATE (NORMAL) 02/24/17 23:15 PT 12.4 SECONDS (9.5-11.5) H 02/26/17 04:10 INR 1.18 (0.5-1.4) 02/26/17 04:10 PTT (Actin FS) 35.9 SECONDS (26.0-38.0) 02/26/17 04:10 Specimen Source Arterial 02/25/17 08:30 Sample Site RB 02/25/17 08:30 pH 7.49 (7.35-7.45) H 02/25/17 08:30 pCO2 32.0 mmHg (35.0-45.0) L 02/25/17 08:30 pO2 62.0 mmHg (80.0-100.0) L 02/25/17 08:30 HCO3 26.1 mEq/L (20.0-26.0) H 02/25/17 08:30 Base Excess 1.6 mEq/L (-3.0-3.0) 02/25/17 08:30 O2 Saturation 93.0 % (92.0-100.0) 02/25/17 08:30 Florin Test NA 02/25/17 08:30 Vent Rate NA 02/25/17 08:30 Inspired O2 32 02/25/17 08:30 Tidal Volume NA 02/25/17 08:30 PEEP NA 02/25/17 08:30 Pressure (ins/psv/peep) NA 02/25/17 08:30 Critical Value SH 02/25/17 08:30 Sodium 132 mEq/L (136-145) L 03/02/17 06:00 Potassium 3.0 mEq/L (3.5-5.1) L 03/02/17 06:00 Chloride 103 mEq/L (98-107) 03/02/17 06:00 Carbon Dioxide 22.4 mEq/L (21.0-31.0) 03/02/17 06:00 Anion Gap 9.6 (7.0-16.0) 03/02/17 06:00 BUN 7 mg/dL (7-25) 03/02/17 06:00 Creatinine 1.0 mg/dL (0.7-1.3) 03/02/17 06:00 Est GFR ( Amer) > 60.0 ml/min (>90) 03/02/17 06:00 Est GFR (Non-Af Amer) > 60.0 ml/min 03/02/17 06:00 BUN/Creatinine Ratio 7.0 03/02/17 06:00 Glucose 114 mg/dL (70-105) H 03/02/17 06:00 POC Glucose 117 MG/DL (70 - 105) H 03/02/17 18:24 Hemoglobin A1c % 6.1 % (4.0-6.0) H 02/25/17 05:03 Whole Bld Lactic Acid 1.30 mmol/L (0.60-1.99) 02/25/17 13:15 Calcium 8.3 mg/dL (8.6-10.3) L 03/02/17 06:00 Magnesium 1.7 mg/dL (1.9-2.7) L 03/02/17 06:00 Total Bilirubin 1.4 mg/dL (0.3-1.0) H 03/02/17 06:00 Direct Bilirubin 1.38 mg/dL (0.0-0.2) H 03/01/17 04:21 AST 35 U/L (13-39) 03/02/17 06:00 ALT 21 U/L (7-52) 03/02/17 06:00 Alkaline Phosphatase 118 U/L (34-104) H 03/02/17 06:00 Ammonia 43 umol/L (16-53) 02/26/17 04:10 Total Protein 5.7 gm/dL (6.0-8.3) L 03/02/17 06:00 Albumin 2.8 gm/dL (4.2-5.5) L 03/02/17 06:00 Globulin 2.9 gm/dL 03/02/17 06:00 Albumin/Globulin Ratio 1.0 (1.0-1.8) 03/02/17 06:00 Lipase 37 U/L (11-82) 02/27/17 06:30 Tumor Marker AFP 1.5 ng/mL (0.0-8.3) 02/26/17 04:10 Urine Source RANDOM 02/24/17 22:50 Urine Color BROWN 02/24/17 22:50 Urine Clarity CLOUDY (CLEAR) 02/24/17 22:50 Urine pH 5.0 (4.6 - 8.0) 02/24/17 22:50 Ur Specific [place] >= 1.030 (1.005-1.030) 02/24/17 22:50 Urine Protein 100 mg/dL (NEGATIVE) H 02/24/17 22:50 Urine Glucose (UA) NEGATIVE mg/dL (NEGATIVE) 02/24/17 22:50 Urine Ketones TRACE mg/dL (NEGATIVE) 02/24/17 22:50 Urine Blood LARGE (NEGATIVE) H 02/24/17 22:50 Urine Nitrate NEGATIVE (NEGATIVE) 02/24/17 22:50 Urine Bilirubin MODERATE (NEGATIVE) H 02/24/17 22:50 Urine Urobilinogen 1.0 E.U./dL (0.2 - 1.0) 02/24/17 22:50 Ur Leukocyte Esterase TRACE (NEGATIVE) H 02/24/17 22:50 Urine RBC 25-50 /hpf (0-5) H 02/24/17 22:50 Urine WBC 6-10 /hpf (0-5) H 02/24/17 22:50 Ur Epithelial Cells FEW /lpf (FEW) 02/24/17 22:50 Urine Bacteria FEW /hpf (NONE SEEN) 02/24/17 22:50 Gentamicin 0.2 ug/mL (0.5-10.0) L 03/01/17 04:21 Gentamicin Peak 11.3 ug/ml (4.0-8.0) H 02/26/17 14:05 Gentamicin Trough 3.8 ug/ml (0.2-2.0) H 02/26/17 10:30 Helicobacter pylori Ab NEGATIVE (NEGATIVE) 02/26/17 11:45 Hepatitis A IgM Ab Negative (Negative) 02/26/17 04:10 Hep Bs Antigen Negative (Negative) 02/26/17 04:10 Hep B Core IgM Ab Negative (Negative) 02/26/17 04:10 Hepatitis C Antibody 0.1 s/co ratio (0.0-0.9) 02/26/17 04:10 Blood Type A POSITIVE 02/26/17 04:10 Antibody Screen NEGATIVE 02/26/17 04:10 - Physical Exam Vitals and I&O: Vital Signs Temp 98.4 F 03/02/17 11:39 Pulse 96 03/02/17 19:43 Resp 20 03/02/17 19:43 BP 120/78 03/02/17 15:00 Pulse Ox 96 03/02/17 19:43 Intake & Output 10/03/02/17 03/03/17 06:59 18:59 06:59 Intake Total 150 50 Output Total 1600 Balance -1450 50 Weight (lbs) 186 lb Intake: Intake, IV Amount 50 50 Ampicillin Sodium/ 50 50 Sulbactam 3 gm In Sodium Chloride 0.9% 50 ml @ 100 mls/hr IV Q6HR [facility] Rx#: [id number] Oral 100 Output: Urine 1600 Other: # Bowel Movements 0 Active Medications: Current Medications Albuterol/Ipratropium (Duoneb Neb) 3 ml HHN Q6HRT [facility] Stop: 04/26/17 12:59 Last Admin: 03/02/17 18:35 Dose: 3 ml Diphenhydramine HCl (Benadryl 50 Mg/Ml) 25 mg IM Q6HR PRN PRN Reason: Agitation Stop: 04/28/17 17:39 Last Admin: 03/02/17 06:43 Dose: 25 mg Enoxaparin Sodium (Lovenox) 30 mg SUBQ Q12HR [facility] Stop: 04/26/17 20:59 Last Admin: 03/02/17 09:01 Dose: 30 mg Haloperidol Lactate (Haldol) 3 mg IM Q6HR PRN PRN Reason: Agitation Stop: 05/01/17 10:27 Last Admin: 03/02/17 14:10 Dose: 3 mg Ampicillin Sodium/Sulbactam (Sodium 3 gm/ Sodium Chloride) 50 mls @ 100 mls/hr IV Q6HR [facility] Stop: 04/29/17 11:59 Last Infusion: 03/02/17 09:42 Dose: Infused Gentamicin Sulfate 160 mg/ (Sodium Chloride) 104 mls @ 100 mls/hr IV Q24HR [facility] Stop: 05/01/17 13:59 Last Admin: 03/02/17 14:42 Dose: 100 mls/hr Dextrose/Sodium Chloride (D5-0.45ns) 1,000 mls @ 80 mls/hr IV .[id number] [facility] Stop: 04/26/17 00:40 Insulin Aspart (Novolog) 0 units SUBQ ACHS [facility] PRN Reason: Protocol Stop: 04/26/17 05:59 Last Admin: 03/02/17 18:28 Dose: Not Given Lactobacillus Rhamnosus (Culturelle) 1 each PO DAILY [facility] Stop: 04/27/17 16:59 Last Admin: 03/01/17 09:00 Dose: Not Given Lorazepam (Ativan) 1 mg IM Q6HR PRN; Protocol PRN Reason: Agitation Stop: 04/28/17 17:38 Last Admin: 03/02/17 14:09 Dose: 1 mg Mineral Oil (Mineral Oil 30 Ml) 30 ml PO BID [facility] Stop: 05/01/17 16:59 Last Admin: 03/02/17 18:30 Dose: 30 ml Miscellaneous (Gentamicin Iv Per Pharmacy) 1 ea MC PRN [facility] Stop: 04/25/17 22:29 Miscellaneous (Probiotic Screen) 1 ea PRN PRN PRN Reason: PROTOCOL Stop: 04/27/17 16:53 Morphine Sulfate (Morphine) 2 mg IVP Q4HR PRN PRN Reason: Pain (Moderate) Stop: 04/29/17 21:24 Last Admin: 03/02/17 13:28 Dose: 2 mg Ondansetron HCl (Zofran) 4 mg IV Q6H PRN PRN Reason: Nausea / Vomiting Stop: 04/26/17 06:18 Last Admin: 02/27/17 08:44 Dose: 4 mg Pantoprazole Sodium (Protonix) 40 mg IVP Q12H [facility] Stop: 04/26/17 08:59 Last Admin: 03/02/17 09:01 Dose: 40 mg Quetiapine Fumarate (Seroquel) 25 mg PO BID [facility] PRN Reason: Protocol Stop: 05/01/17 09:29 Last Admin: 03/02/17 18:32 Dose: 25 mg Quetiapine Fumarate (Seroquel) 50 mg PO HS [facility] PRN Reason: Protocol Stop: 05/01/17 20:59 General: weak, other (confused) HEENT: NC/AT, PERRLA Neck: Supple Lungs: ronchi Cardiovascular: RRR, Normal S1, Normal S2 Abdomen: soft, non-tender, non-distended, positive bowel sound Extremities: excoriation Neurological: other (confused) - Procedures Procedures: Procedures Procedure Code Date APPENDECTOMY 54803 02/24/17 EXCISION OF BOWEL POUCH 19566 02/24/17 EXCISION OF SMALL INTESTINE, OPEN APPROACH [id number] 02/24/17 REMOVAL OF GALLBLADDER 84445 02/24/17 RESECTION OF APPENDIX, OPEN APPROACH [id number] 02/24/17 RESECTION OF GALLBLADDER, OPEN APPROACH [id number] 02/24/17 RESPIRATORY VENTILATION, LESS THAN 24 CONSECUTIVE HOURS [id number] 02/24/17 VENT MGMT INPAT INIT 99030 02/24/17 Internal Medicine Assmt/Plan - Assessment Assessment: SMALL BOWEL OBSTRUCTION ACUTE CHOLELITHIASIS COPD ACUTE RESPIRATORY FAILURE-S/P SELF EXTUBATION-CURRENTLY STABLY DM-2 PSYCHOSIS LACTIC ACIDOSIS - Plan Plan: inhalation treatments continue with iv antibiotics am labs monitor glucose supplemental oxygen continue current plan of care Nutritional Asmnt/Malnutr-PDOC - Dietary Evaluation Malnutrition Findings (Please click <Entered> for more info): Nutritional Asmnt/Malnutrition Start: 03/01/17 11: 48 Text: Status: Complete Freq: Document 03/01/17 11:48 MONROE (Rec: 03/01/17 12:00 MPENAIGNACIO KRISTYN -[id number]) Nutritional Asmnt/Malnutrition Patient General Information Nutritional Screening High Risk Screening Diagnosis Septicemia Pertinent Medical Hx/Surgical Hx COPD, alcoholism, s/p extubation or respiratory failure, DJD, psychotic disorder, CVA per MD notes Pt is POD 1 s/p open cholecystectomy, resection of Meckel's diverticulum, appendectomy Subjective Information Pt seen resting in bed, +O2 mask. Pt appeared over- nourished for ht, c/w anthropometrics and verified by pt. Per RN, pt extubated himself, and new MD orders for swallow eval prior to starting clear liquid diet. Pt reported feelings of hunger. Pt denied any supplement use. Per EMR, bowel sounds hypoactive; abd is firm and distended. Output (gastric drainage): 3024/1975 (+1049 ml ) per 12 hours. Pt is not yet meeting optimal nutritional needs. Pt is not appropriate for nutrition education. Current Diet Order/ Nutrition Support Clear liquid Patient / S.O Can Pertinent Medications D5%/NaCl IV at 120 ml/hr (490 kcal/day), zofran, protonix Pertinent Labs Na 133 L, K 3.3 L, BG 118 H, POC BG 106 H, ALB 2.7 L, Tbili 2 H, WBC 10.5 WNL, Plt Count 407 H, Mg 1.5 L Nutritional Hx/Data Height 5 ft 11 in Height (Calculated Centimeters) 180.3 Current Weight (lbs) 184 lb Weight (Calculated Kilograms) 83.5 Weight (Calculated Grams) 25899.0 Usual body Weight (lbs) 183 % Usual Body Weight 101 [place] Body Weight 172 lb, 78 kg % [place] Body Weight 108 Recent Weight Change No Weight Status Overweight GI Symptoms GI Symptoms None Difficult in: Swallowing Food Allergies No Usual diet at home Pt denied any dietary restrictions Skin Integrity/Comment: Skin intact; reddened areas noted to sacrum, L heel, nicole area Current %PO Negligible < 25% Estimated Nutritional Goals BEE in Kcals: Using Current wt Calories/Kcals/Kg 30-35 kcal/kg CBW for sepsis Kcals Calculated 5466-0007 kcal/day Protein: Using Current wt Protein g/k.5-2 gm/kg CBW for sepsis Protein Calculated 126-168 gm/day Fluid: ml 2.5-3 L/day (1 ml/kcal/day for maintenance) Nutritional Problem 2. Problem Problem Possible swallowing difficulty Etiology related to recent Sx requiring intubation Signs/Symptoms: as evidenced by recent self- extubation and plans for swallow eval. 1. Problem Problem Increased nutritional needs Etiology related to metabolic demands Signs/Symptoms: as evidenced by estimated nutritional requirements for MD Dx of septicemia. Malnutrition Alert Is there a minimum of two criteria No selected? Query Text:Check all the applicable criteria. A minimum of two criteria are recommended for diagnosis of either severe or non-severe malnutrition. Malnutrition Related to Morbid Obesity Malnutrition related to morbid obesity No Intervention/Recommendation Comments * Consider advance diet if/ when medically appropriate ( clear liquid diet) * Consider ST swallow eval recommendations Expected Outcomes/Goals Expected Outcomes/Goals - Monitor provision and advancement of PO diet w/ goal of pt meeting at least 50% of estimated nutritional needs, labs trending WNL, normal GI function, and skin integrity/ wt maintenance within 2-3 days
[2017-03-03] MEDS: Haloperidol Lactate 5 mg/mL 1mL Vial IM PRN ×3 (02:02→22:43)
--- NOTE | 2017-03-03 02:08 | Consultation ---
DATE OF CONSULTATION: 03/02/2017 HISTORY OF PRESENT ILLNESS: This is a 67-year-old male currently in the ICU, still agitated, in restraints at times, still requiring a lot of redirection and prompting. Staff concerned due to his continued behaviors. Recent medication adjustments were made. Increase of Seroquel increase of Haldol p.r.n. The patient is confused, disoriented, AO to name only. MEDICATIONS: Reviewed and noted including dosages and frequencies. MENTAL STATUS EXAMINATION: Appeared stated age, restless. Mood "okay." Disoriented, confused, no SI, no SI, no overt psychotic symptoms, but he is mumbling to himself. Poor insight and poor impulse control. PROVISIONAL DIAGNOSIS: Psychosis, unspecified; protracted delirium. RECOMMENDATIONS AND PLAN: Increase Seroquel. Increase Haldol. Monitor closely. The patient may need readmission to the Geropsych Unit. JOB# [id number]
[2017-03-03 04:28] LABS: % BASOPHILS 0.1 % (0.0-2.0); % EOSINOPHILS 8.9 % (0.0-5.0); % LYMPHOCYTES 21.3 % (20.0-50.0); % MONOCYTES 8.4 % (2.0-10.0); % NEUTROPHILS 61.3 % (40.0-80.0); HEMATOCRIT 37.8 % (41.0-60); HEMOGLOBIN 12.7 gm/dL (12-16); MEAN CELL VOLUME 91.2 fl (80-99); MEAN CORPUSCULAR HEMOGLOBIN 30.7 pg (27.0-31.0); MEAN CORPUSCULAR HGB CONC 33.6 pg (28.0-36.0); MEAN PLATELET VOLUME 7.4 fl; NEUTROPHILE ABSOLUTE 5.1 Th/cmm (1.8-8.0); PLATELET COUNT 483 Th/cmm (150-400); RED BLOOD COUNT 4.14 Mil/cmm (3.80-5.80); RED CELL DISTRIBUTION WIDTH 13.4 % (11.5-20.0); WHITE BLOOD COUNT 8.3 Th/cmm (4.8-10.8)
[2017-03-03 04:49] LABS: ALB/GLOB RATIO 0.9 (1.0-1.8); ALKALINE PHOSPHATASE 123 U/L (34-104); ANION GAP 9.3 (7.0-16.0); BILIRUBIN,TOTAL 0.9 mg/dL (0.3-1.0); BUN - UREA NITROGEN 6 mg/dL (7-25); BUN/CREATININE RATIO 5.5; CALCIUM SERUM 8.4 mg/dL (8.6-10.3); CARBON DIOXIDE 26.9 mEq/L (21.0-31.0); CHLORIDE 102 mEq/L (98-107); CREATININE - SERUM 1.1 mg/dL (0.7-1.3); GLUCOSE 107 mg/dL (70-105); MAGNESIUM 1.8 mg/dL (1.9-2.7); POTASSIUM SERUM 3.2 mEq/L (3.5-5.1); SGOT 31 U/L (13-39); SGPT/ALT 19 U/L (7-52); SODIUM SERUM 135 mEq/L (136-145)
[2017-03-03] MEDS: D5-0.45NS 1,000 ML IV SCH ×3 (04:56→17:33)
[2017-03-03] MEDS: Albuterol/Ipratropium Neb 3 ML AERS HHN SCH ×4 (05:00→19:14)
[2017-03-03] MEDS: SODIUM CHLORIDE 0.9% IV SCH ×3 (05:05→17:35)
[2017-03-03] MEDS: SULBACTAM IV SCH ×3 (05:05→17:35)
[2017-03-03] MEDS: AMPICILLIN SODIUM IV SCH ×3 (05:05→17:35)
[2017-03-03] MEDS: INSULIN ASPART, RECOMBINANT 100 UNITS/ML SUBQ SCH ×4 (06:30→21:04)
--- NOTE | 2017-03-03 10:37 | GI Progress Note ---
Subjective - Review of Systems Service Date: 03/03/17 Subjective: Pt has some pain around incision. No BM and there is some distension Objective - Results Result Diagrams: 03/03/17 04:18 03/03/17 04:18 Recent Labs: Laboratory Last Values WBC 8.3 Th/cmm (4.8-10.8) 03/03/17 04:18 RBC 4.14 Mil/cmm (3.80-5.80) 03/03/17 04:18 Hgb 12.7 gm/dL (12-16) 03/03/17 04:18 Hct 37.8 % (41.0-60) L 03/03/17 04:18 MCV 91.2 fl (80-99) 03/03/17 04:18 MCH 30.7 pg (27.0-31.0) 03/03/17 04:18 MCHC Differential 33.6 pg (28.0-36.0) 03/03/17 04:18 RDW 13.4 % (11.5-20.0) 03/03/17 04:18 Plt Count 483 Th/cmm (150-400) H 03/03/17 04:18 MPV 7.4 fl 03/03/17 04:18 Neutrophils % 61.3 % (40.0-80.0) 03/03/17 04:18 Band Neutrophils % 13 % (0-10) H 02/25/17 05:03 Lymphocytes % 21.3 % (20.0-50.0) 03/03/17 04:18 Monocytes % 8.4 % (2.0-10.0) 03/03/17 04:18 Eosinophils % 8.9 % (0.0-5.0) H 03/03/17 04:18 Basophils % 0.1 % (0.0-2.0) 03/03/17 04:18 Neutrophils (Manual) 77 % (40-80) 02/25/17 05:03 Lymphocytes 5 % (20-50) L 02/25/17 05:03 Monocytes 5 % (2-10) 02/25/17 05:03 Platelet Estimate ADEQUATE (NORMAL) 02/24/17 23:15 PT 12.4 SECONDS (9.5-11.5) H 02/26/17 04:10 INR 1.18 (0.5-1.4) 02/26/17 04:10 PTT (Actin FS) 35.9 SECONDS (26.0-38.0) 02/26/17 04:10 Specimen Source Arterial 02/25/17 08:30 Sample Site RB 02/25/17 08:30 pH 7.49 (7.35-7.45) H 02/25/17 08:30 pCO2 32.0 mmHg (35.0-45.0) L 02/25/17 08:30 pO2 62.0 mmHg (80.0-100.0) L 02/25/17 08:30 HCO3 26.1 mEq/L (20.0-26.0) H 02/25/17 08:30 Base Excess 1.6 mEq/L (-3.0-3.0) 02/25/17 08:30 O2 Saturation 93.0 % (92.0-100.0) 02/25/17 08:30 Florin Test NA 02/25/17 08:30 Vent Rate NA 02/25/17 08:30 Inspired O2 32 02/25/17 08:30 Tidal Volume NA 02/25/17 08:30 PEEP NA 02/25/17 08:30 Pressure (ins/psv/peep) NA 02/25/17 08:30 Critical Value SH 02/25/17 08:30 Sodium 135 mEq/L (136-145) L 03/03/17 04:18 Potassium 3.2 mEq/L (3.5-5.1) L 03/03/17 04:18 Chloride 102 mEq/L (98-107) 03/03/17 04:18 Carbon Dioxide 26.9 mEq/L (21.0-31.0) 03/03/17 04:18 Anion Gap 9.3 (7.0-16.0) 03/03/17 04:18 BUN 6 mg/dL (7-25) L 03/03/17 04:18 Creatinine 1.1 mg/dL (0.7-1.3) 03/03/17 04:18 Est GFR ( Amer) > 60.0 ml/min (>90) 03/03/17 04:18 Est GFR (Non-Af Amer) > 60.0 ml/min 03/03/17 04:18 BUN/Creatinine Ratio 5.5 03/03/17 04:18 Glucose 107 mg/dL (70-105) H 03/03/17 04:18 POC Glucose 93 MG/DL (70 - 105) 03/03/17 08:17 Hemoglobin A1c % 6.1 % (4.0-6.0) H 02/25/17 05:03 Whole Bld Lactic Acid 1.30 mmol/L (0.60-1.99) 02/25/17 13:15 Calcium 8.4 mg/dL (8.6-10.3) L 03/03/17 04:18 Magnesium 1.8 mg/dL (1.9-2.7) L 03/03/17 04:18 Total Bilirubin 0.9 mg/dL (0.3-1.0) 03/03/17 04:18 Direct Bilirubin 1.38 mg/dL (0.0-0.2) H 03/01/17 04:21 AST 31 U/L (13-39) 03/03/17 04:18 ALT 19 U/L (7-52) 03/03/17 04:18 Alkaline Phosphatase 123 U/L (34-104) H 03/03/17 04:18 Ammonia 43 umol/L (16-53) 02/26/17 04:10 Total Protein 6.0 gm/dL (6.0-8.3) 03/03/17 04:18 Albumin 2.8 gm/dL (4.2-5.5) L 03/03/17 04:18 Globulin 3.2 gm/dL 03/03/17 04:18 Albumin/Globulin Ratio 0.9 (1.0-1.8) L 03/03/17 04:18 Lipase 37 U/L (11-82) 02/27/17 06:30 Tumor Marker AFP 1.5 ng/mL (0.0-8.3) 02/26/17 04:10 Urine Source RANDOM 02/24/17 22:50 Urine Color BROWN 02/24/17 22:50 Urine Clarity CLOUDY (CLEAR) 02/24/17 22:50 Urine pH 5.0 (4.6 - 8.0) 02/24/17 22:50 Ur Specific [place] >= 1.030 (1.005-1.030) 02/24/17 22:50 Urine Protein 100 mg/dL (NEGATIVE) H 02/24/17 22:50 Urine Glucose (UA) NEGATIVE mg/dL (NEGATIVE) 02/24/17 22:50 Urine Ketones TRACE mg/dL (NEGATIVE) 02/24/17 22:50 Urine Blood LARGE (NEGATIVE) H 02/24/17 22:50 Urine Nitrate NEGATIVE (NEGATIVE) 02/24/17 22:50 Urine Bilirubin MODERATE (NEGATIVE) H 02/24/17 22:50 Urine Urobilinogen 1.0 E.U./dL (0.2 - 1.0) 02/24/17 22:50 Ur Leukocyte Esterase TRACE (NEGATIVE) H 02/24/17 22:50 Urine RBC 25-50 /hpf (0-5) H 02/24/17 22:50 Urine WBC 6-10 /hpf (0-5) H 02/24/17 22:50 Ur Epithelial Cells FEW /lpf (FEW) 02/24/17 22:50 Urine Bacteria FEW /hpf (NONE SEEN) 02/24/17 22:50 Gentamicin 0.2 ug/mL (0.5-10.0) L 03/01/17 04:21 Gentamicin Peak 11.3 ug/ml (4.0-8.0) H 02/26/17 14:05 Gentamicin Trough 3.8 ug/ml (0.2-2.0) H 02/26/17 10:30 Helicobacter pylori Ab NEGATIVE (NEGATIVE) 02/26/17 11:45 Hepatitis A IgM Ab Negative (Negative) 02/26/17 04:10 Hep Bs Antigen Negative (Negative) 02/26/17 04:10 Hep B Core IgM Ab Negative (Negative) 02/26/17 04:10 Hepatitis C Antibody 0.1 s/co ratio (0.0-0.9) 02/26/17 04:10 Blood Type A POSITIVE 02/26/17 04:10 Antibody Screen NEGATIVE 02/26/17 04:10 - Physical Exam Vitals and I&O: Vital Signs Temp 98.2 F 03/03/17 04:00 Pulse 91 03/03/17 07:55 Resp 18 03/03/17 08:38 BP 110/64 03/03/17 06:32 Pulse Ox 95 03/03/17 07:55 Intake & Output 03/02/17 03/03/17 03/03/17 18:59 06:59 18:59 Intake Total 300 1535.667 Output Total 1300 1400 Balance -1000 135.667 Weight (lbs) 84.368 kg 79.832 kg Intake: Intake, IV Amount 50 375.667 Ampicillin Sodium/ 50 151.667 Sulbactam 3 gm In Sodium Chloride 0.9% 50 ml @ 100 mls/hr IV Q6HR [facility] Rx#: [id number] D5-0.45NS 1,000 ml @ 80 120.000 mls/hr IV .[id number] [facility] Rx #:[id number] Gentamicin 160 mg In 104 Sodium Chloride 0.9% 100 ml @ 100 mls/hr IV Q24HR [facility] Rx#:[id number] Oral 250 200 Tube Feeding 960 Output: Urine 1300 1400 Active Medications: Current Medications Albuterol/Ipratropium (Duoneb Neb) 3 ml HHN Q6HRT [facility] Stop: 04/26/17 12:59 Last Admin: 03/03/17 07:53 Dose: 3 ml Diphenhydramine HCl (Benadryl 50 Mg/Ml) 25 mg IM Q6HR PRN PRN Reason: Agitation Stop: 04/28/17 17:39 Last Admin: 03/02/17 06:43 Dose: 25 mg Enoxaparin Sodium (Lovenox) 30 mg SUBQ Q12HR [facility] Stop: 04/26/17 20:59 Last Admin: 03/02/17 21:14 Dose: 30 mg Haloperidol Lactate (Haldol) 3 mg IM Q6HR PRN PRN Reason: Agitation Stop: 05/01/17 10:27 Last Admin: 03/03/17 09:08 Dose: 3 mg Ampicillin Sodium/Sulbactam (Sodium 3 gm/ Sodium Chloride) 50 mls @ 100 mls/hr IV Q6HR [facility] Stop: 04/29/17 11:59 Last Infusion: 03/03/17 06:28 Dose: Infused Dextrose/Sodium Chloride (D5-0.45ns) 1,000 mls @ 80 mls/hr IV .[id number] [facility] Stop: 04/26/17 00:40 Last Admin: 03/03/17 06:26 Dose: 80 mls/hr Gentamicin Sulfate 160 mg/ (Sodium Chloride) 104 mls @ 100 mls/hr IV Q24HR@ 1400 [facility] Stop: 05/01/17 13:59 Insulin Aspart (Novolog) 0 units SUBQ ACHS [facility] PRN Reason: Protocol Stop: 04/26/17 05:59 Last Admin: 03/03/17 06:30 Dose: Not Given Lactobacillus Rhamnosus (Culturelle) 1 each PO DAILY [facility] Stop: 04/27/17 16:59 Last Admin: 03/02/17 09:00 Dose: Not Given Lorazepam (Ativan) 1 mg IM Q6HR PRN; Protocol PRN Reason: Agitation Stop: 04/28/17 17:38 Last Admin: 03/03/17 02:00 Dose: 1 mg Mineral Oil (Mineral Oil 30 Ml) 30 ml PO BID [facility] Stop: 05/01/17 16:59 Last Admin: 03/02/17 18:30 Dose: 30 ml Miscellaneous (Gentamicin Iv Per Pharmacy) 1 ea MC PRN [facility] Stop: 04/25/17 22:29 Miscellaneous (Probiotic Screen) 1 ea PRN PRN PRN Reason: PROTOCOL Stop: 04/27/17 16:53 Morphine Sulfate (Morphine) 2 mg IVP Q4HR PRN PRN Reason: Pain (Moderate) Stop: 04/29/17 21:24 Last Admin: 03/02/17 23:17 Dose: 2 mg Ondansetron HCl (Zofran) 4 mg IV Q6H PRN PRN Reason: Nausea / Vomiting Stop: 04/26/17 06:18 Last Admin: 02/27/17 08:44 Dose: 4 mg Pantoprazole Sodium (Protonix) 40 mg IVP Q12H [facility] Stop: 04/26/17 08:59 Last Admin: 03/03/17 09:13 Dose: 40 mg Quetiapine Fumarate (Seroquel) 25 mg PO BID [facility] PRN Reason: Protocol Stop: 05/01/17 09:29 Last Admin: 03/02/17 18:32 Dose: 25 mg Quetiapine Fumarate (Seroquel) 50 mg PO HS [facility] PRN Reason: Protocol Stop: 05/01/17 20:59 Last Admin: 03/02/17 21:34 Dose: 50 mg General: Alert, Oriented x3 Abdomen: Soft, Tender, Distended, Other (no guard or rebound, + distension) - Procedures Procedures: Procedures Procedure Code Date APPENDECTOMY 21863 02/24/17 EXCISION OF BOWEL POUCH 02969 02/24/17 EXCISION OF SMALL INTESTINE, OPEN APPROACH [id number] 02/24/17 REMOVAL OF GALLBLADDER 32220 02/24/17 RESECTION OF APPENDIX, OPEN APPROACH [id number] 02/24/17 RESECTION OF GALLBLADDER, OPEN APPROACH [id number] 02/24/17 RESPIRATORY VENTILATION, LESS THAN 24 CONSECUTIVE HOURS [id number] 02/24/17 VENT MGMT INPAT INIT DAY 56945 02/24/17 Assessment/Plan - Assessment Assessment: # Acute cholecystitis s/p cholecystectomy on 03/01 # Ileus, likely post op - KUB today to eval for ileus or other pathology causing distension - mineral oil enema x 1 - encourage the pt to move in bed and ambulate with PT - diet as per his surgeon, Dr Rodriguez
[2017-03-03] MEDS ORDERED: MINERAL OIL ENEMA 135 ML BOTTLE RC ONE (10:38)
[2017-03-03] MEDS ORDERED: Mag Sulfate 2gm/50mL Premix 2 GM/50 ML BAG IV ONE (12:54)
[2017-03-03] MEDS ORDERED: Potassium Chloride 40 MEQ, Lidocaine 1% 20mL Vial 25 MG in Sodium Chloride 0.9% 250 ML IV ONE (12:54)
--- NOTE | 2017-03-03 12:56 | Internal Medicine Prog Note ---
Internal Medicine Subjective - Subjective Patient seen and examined:: with staff, chart reviewed Patient is:: awake, verbal, interactive, confused Patient Complaints of:: congestion, constipation, bloated Per staff patient has:: no adverse event, poor appetite, tolerating meds, other (self extubation) Internal Medicine Objective - Results Result Diagrams: 03/03/17 04:18 03/03/17 04:18 Recent Labs: Laboratory Last Values WBC 8.3 Th/cmm (4.8-10.8) 03/03/17 04:18 RBC 4.14 Mil/cmm (3.80-5.80) 03/03/17 04:18 Hgb 12.7 gm/dL (12-16) 03/03/17 04:18 Hct 37.8 % (41.0-60) L 03/03/17 04:18 MCV 91.2 fl (80-99) 03/03/17 04:18 MCH 30.7 pg (27.0-31.0) 03/03/17 04:18 MCHC Differential 33.6 pg (28.0-36.0) 03/03/17 04:18 RDW 13.4 % (11.5-20.0) 03/03/17 04:18 Plt Count 483 Th/cmm (150-400) H 03/03/17 04:18 MPV 7.4 fl 03/03/17 04:18 Neutrophils % 61.3 % (40.0-80.0) 03/03/17 04:18 Band Neutrophils % 13 % (0-10) H 02/25/17 05:03 Lymphocytes % 21.3 % (20.0-50.0) 03/03/17 04:18 Monocytes % 8.4 % (2.0-10.0) 03/03/17 04:18 Eosinophils % 8.9 % (0.0-5.0) H 03/03/17 04:18 Basophils % 0.1 % (0.0-2.0) 03/03/17 04:18 Neutrophils (Manual) 77 % (40-80) 02/25/17 05:03 Lymphocytes 5 % (20-50) L 02/25/17 05:03 Monocytes 5 % (2-10) 02/25/17 05:03 Platelet Estimate ADEQUATE (NORMAL) 02/24/17 23:15 PT 12.4 SECONDS (9.5-11.5) H 02/26/17 04:10 INR 1.18 (0.5-1.4) 02/26/17 04:10 PTT (Actin FS) 35.9 SECONDS (26.0-38.0) 02/26/17 04:10 Specimen Source Arterial 02/25/17 08:30 Sample Site RB 02/25/17 08:30 pH 7.49 (7.35-7.45) H 02/25/17 08:30 pCO2 32.0 mmHg (35.0-45.0) L 02/25/17 08:30 pO2 62.0 mmHg (80.0-100.0) L 02/25/17 08:30 HCO3 26.1 mEq/L (20.0-26.0) H 02/25/17 08:30 Base Excess 1.6 mEq/L (-3.0-3.0) 02/25/17 08:30 O2 Saturation 93.0 % (92.0-100.0) 02/25/17 08:30 Florin Test NA 02/25/17 08:30 Vent Rate NA 02/25/17 08:30 Inspired O2 32 02/25/17 08:30 Tidal Volume NA 02/25/17 08:30 PEEP NA 02/25/17 08:30 Pressure (ins/psv/peep) NA 02/25/17 08:30 Critical Value SH 02/25/17 08:30 Sodium 135 mEq/L (136-145) L 03/03/17 04:18 Potassium 3.2 mEq/L (3.5-5.1) L 03/03/17 04:18 Chloride 102 mEq/L (98-107) 03/03/17 04:18 Carbon Dioxide 26.9 mEq/L (21.0-31.0) 03/03/17 04:18 Anion Gap 9.3 (7.0-16.0) 03/03/17 04:18 BUN 6 mg/dL (7-25) L 03/03/17 04:18 Creatinine 1.1 mg/dL (0.7-1.3) 03/03/17 04:18 Est GFR ( Amer) > 60.0 ml/min (>90) 03/03/17 04:18 Est GFR (Non-Af Amer) > 60.0 ml/min 03/03/17 04:18 BUN/Creatinine Ratio 5.5 03/03/17 04:18 Glucose 107 mg/dL (70-105) H 03/03/17 04:18 POC Glucose 114 MG/DL (70 - 105) H 03/03/17 12:15 Hemoglobin A1c % 6.1 % (4.0-6.0) H 02/25/17 05:03 Whole Bld Lactic Acid 1.30 mmol/L (0.60-1.99) 02/25/17 13:15 Calcium 8.4 mg/dL (8.6-10.3) L 03/03/17 04:18 Magnesium 1.8 mg/dL (1.9-2.7) L 03/03/17 04:18 Total Bilirubin 0.9 mg/dL (0.3-1.0) 03/03/17 04:18 Direct Bilirubin 1.38 mg/dL (0.0-0.2) H 03/01/17 04:21 AST 31 U/L (13-39) 03/03/17 04:18 ALT 19 U/L (7-52) 03/03/17 04:18 Alkaline Phosphatase 123 U/L (34-104) H 03/03/17 04:18 Ammonia 43 umol/L (16-53) 02/26/17 04:10 Total Protein 6.0 gm/dL (6.0-8.3) 03/03/17 04:18 Albumin 2.8 gm/dL (4.2-5.5) L 03/03/17 04:18 Globulin 3.2 gm/dL 03/03/17 04:18 Albumin/Globulin Ratio 0.9 (1.0-1.8) L 03/03/17 04:18 Lipase 37 U/L (11-82) 02/27/17 06:30 Tumor Marker AFP 1.5 ng/mL (0.0-8.3) 02/26/17 04:10 Urine Source RANDOM 02/24/17 22:50 Urine Color BROWN 02/24/17 22:50 Urine Clarity CLOUDY (CLEAR) 02/24/17 22:50 Urine pH 5.0 (4.6 - 8.0) 02/24/17 22:50 Ur Specific [place] >= 1.030 (1.005-1.030) 02/24/17 22:50 Urine Protein 100 mg/dL (NEGATIVE) H 02/24/17 22:50 Urine Glucose (UA) NEGATIVE mg/dL (NEGATIVE) 02/24/17 22:50 Urine Ketones TRACE mg/dL (NEGATIVE) 02/24/17 22:50 Urine Blood LARGE (NEGATIVE) H 02/24/17 22:50 Urine Nitrate NEGATIVE (NEGATIVE) 02/24/17 22:50 Urine Bilirubin MODERATE (NEGATIVE) H 02/24/17 22:50 Urine Urobilinogen 1.0 E.U./dL (0.2 - 1.0) 02/24/17 22:50 Ur Leukocyte Esterase TRACE (NEGATIVE) H 02/24/17 22:50 Urine RBC 25-50 /hpf (0-5) H 02/24/17 22:50 Urine WBC 6-10 /hpf (0-5) H 02/24/17 22:50 Ur Epithelial Cells FEW /lpf (FEW) 02/24/17 22:50 Urine Bacteria FEW /hpf (NONE SEEN) 02/24/17 22:50 Gentamicin 0.2 ug/mL (0.5-10.0) L 03/01/17 04:21 Gentamicin Peak 11.3 ug/ml (4.0-8.0) H 02/26/17 14:05 Gentamicin Trough 3.8 ug/ml (0.2-2.0) H 02/26/17 10:30 Helicobacter pylori Ab NEGATIVE (NEGATIVE) 02/26/17 11:45 Hepatitis A IgM Ab Negative (Negative) 02/26/17 04:10 Hep Bs Antigen Negative (Negative) 02/26/17 04:10 Hep B Core IgM Ab Negative (Negative) 02/26/17 04:10 Hepatitis C Antibody 0.1 s/co ratio (0.0-0.9) 02/26/17 04:10 Blood Type A POSITIVE 02/26/17 04:10 Antibody Screen NEGATIVE 02/26/17 04:10 - Physical Exam Vitals and I&O: Vital Signs Temp 97.5 F 03/03/17 12:00 Pulse 94 03/03/17 12:00 Resp 16 03/03/17 12:00 BP 119/67 03/03/17 12:00 Pulse Ox 99 03/03/17 12:00 Intake & Output 03/02/17 03/03/17 03/03/17 18:59 06:59 18:59 Intake Total 300 1535.667 50 Output Total 1300 1400 150 Balance -1000 135.667 -100 Weight (lbs) 84.368 kg 79.832 kg 79.832 kg Intake: Intake, IV Amount 50 375.667 Ampicillin Sodium/ 50 151.667 Sulbactam 3 gm In Sodium Chloride 0.9% 50 ml @ 100 mls/hr IV Q6HR [facility] Rx#: [id number] D5-0.45NS 1,000 ml @ 80 120.000 mls/hr IV .[id number] [facility] Rx #:[id number] Gentamicin 160 mg In 104 Sodium Chloride 0.9% 100 ml @ 100 mls/hr IV Q24HR [facility] Rx#:[id number] Oral 250 200 50 Tube Feeding 960 Output: Urine 1300 1400 150 Stool 0 Active Medications: Current Medications Albuterol/Ipratropium (Duoneb Neb) 3 ml HHN Q6HRT [facility] Stop: 04/26/17 12:59 Last Admin: 03/03/17 07:53 Dose: 3 ml Diphenhydramine HCl (Benadryl 50 Mg/Ml) 25 mg IM Q6HR PRN PRN Reason: Agitation Stop: 04/28/17 17:39 Last Admin: 03/02/17 06:43 Dose: 25 mg Enoxaparin Sodium (Lovenox) 30 mg SUBQ Q12HR [facility] Stop: 04/26/17 20:59 Last Admin: 03/02/17 21:14 Dose: 30 mg Haloperidol Lactate (Haldol) 3 mg IM Q6HR PRN PRN Reason: Agitation Stop: 05/01/17 10:27 Last Admin: 03/03/17 09:08 Dose: 3 mg Ampicillin Sodium/Sulbactam (Sodium 3 gm/ Sodium Chloride) 50 mls @ 100 mls/hr IV Q6HR [facility] Stop: 04/29/17 11:59 Last Infusion: 03/03/17 06:28 Dose: Infused Dextrose/Sodium Chloride (D5-0.45ns) 1,000 mls @ 80 mls/hr IV .[id number] [facility] Stop: 04/26/17 00:40 Last Admin: 03/03/17 06:26 Dose: 80 mls/hr Gentamicin Sulfate 160 mg/ (Sodium Chloride) 104 mls @ 100 mls/hr IV Q24HR@ 1400 [facility] Stop: 05/01/17 13:59 Potassium Chloride 40 meq/Lidocaine HCl 25 mg/ Sodium Chloride 272.5 mls @ 68 mls/hr IV X1 ONE Stop: 03/03/17 16:54 Magnesium Sulfate (Magnesium Sulfate Premix) 2 gm in 50 mls @ 25 mls/hr IV X1 ONE Stop: 03/03/17 14:53 Insulin Aspart (Novolog) 0 units SUBQ ACHS [facility] PRN Reason: Protocol Stop: 04/26/17 05:59 Last Admin: 03/03/17 06:30 Dose: Not Given Lactobacillus Rhamnosus (Culturelle) 1 each PO DAILY [facility] Stop: 04/27/17 16:59 Last Admin: 03/02/17 09:00 Dose: Not Given Lorazepam (Ativan) 1 mg IM Q6HR PRN; Protocol PRN Reason: Agitation Stop: 04/28/17 17:38 Last Admin: 03/03/17 02:00 Dose: 1 mg Mineral Oil (Mineral Oil 30 Ml) 30 ml PO BID [facility] Stop: 05/01/17 16:59 Last Admin: 03/02/17 18:30 Dose: 30 ml Miscellaneous (Gentamicin Iv Per Pharmacy) 1 ea PRN [facility] Stop: 04/25/17 22:29 Miscellaneous (Probiotic Screen) 1 ea PRN PRN PRN Reason: PROTOCOL Stop: 04/27/17 16:53 Morphine Sulfate (Morphine) 2 mg IVP Q4HR PRN PRN Reason: Pain (Moderate) Stop: 04/29/17 21:24 Last Admin: 03/02/17 23:17 Dose: 2 mg Ondansetron HCl (Zofran) 4 mg IV Q6H PRN PRN Reason: Nausea / Vomiting Stop: 04/26/17 06:18 Last Admin: 02/27/17 08:44 Dose: 4 mg Pantoprazole Sodium (Protonix) 40 mg IVP Q12H [facility] Stop: 04/26/17 08:59 Last Admin: 03/03/17 09:13 Dose: 40 mg Quetiapine Fumarate (Seroquel) 25 mg PO BID [facility] PRN Reason: Protocol Stop: 05/01/17 09:29 Last Admin: 03/02/17 18:32 Dose: 25 mg Quetiapine Fumarate (Seroquel) 50 mg PO HS [facility] PRN Reason: Protocol Stop: 05/01/17 20:59 Last Admin: 03/02/17 21:34 Dose: 50 mg General: weak, other (confused) HEENT: NC/AT, PERRLA Neck: Supple Lungs: ronchi Cardiovascular: RRR, Normal S1, Normal S2 Abdomen: soft, non-tender, non-distended, positive bowel sound Extremities: excoriation Neurological: other (confused) - Procedures Procedures: Procedures Procedure Code Date APPENDECTOMY 18454 02/24/17 EXCISION OF BOWEL POUCH 57437 02/24/17 EXCISION OF SMALL INTESTINE, OPEN APPROACH [id number] 02/24/17 REMOVAL OF GALLBLADDER 43613 02/24/17 RESECTION OF APPENDIX, OPEN APPROACH [id number] 02/24/17 RESECTION OF GALLBLADDER, OPEN APPROACH [id number] 02/24/17 RESPIRATORY VENTILATION, LESS THAN 24 CONSECUTIVE HOURS [id number] 02/24/17 VENT MGMT INPAT INIT DAY 70260 02/24/17 Internal Medicine Assmt/Plan - Assessment Assessment: SMALL BOWEL OBSTRUCTION ACUTE CHOLELITHIASIS COPD ACUTE RESPIRATORY FAILURE-S/P SELF EXTUBATION-CURRENTLY STABLY DM-2 PSYCHOSIS LACTIC ACIDOSIS - Plan Plan: - Plan Plan: inhalation treatments continue with iv antibiotics am labs monitor glucose supplemental oxygen continue current plan of care Nutritional Asmnt/Malnutr-PDOC - Dietary Evaluation Malnutrition Findings (Please click <Entered> for more info): Nutritional Asmnt/Malnutrition Start: 03/01/17 11: 48 Text: Status: Complete Freq: Document 03/01/17 11:48 MONROE (Rec: 03/01/17 12:00 MONROE SIMONS [id number]) Nutritional Asmnt/Malnutrition Patient General Information Nutritional Screening High Risk Screening Diagnosis Septicemia Pertinent Medical Hx/Surgical Hx COPD, alcoholism, s/p extubation or respiratory failure, DJD, psychotic disorder, CVA per MD notes Pt is POD 1 s/p open cholecystectomy, resection of Meckel's diverticulum, appendectomy Subjective Information Pt seen resting in bed, +O2 mask. Pt appeared over- nourished for ht, c/w anthropometrics and verified by pt. Per RN, pt extubated himself, and new MD orders for swallow eval prior to starting clear liquid diet. Pt reported feelings of hunger. Pt denied any supplement use. Per EMR, bowel sounds hypoactive; abd is firm and distended. Output (gastric drainage): 3024/1975 (+1049 ml ) per 12 hours. Pt is not yet meeting optimal nutritional needs. Pt is not appropriate for nutrition education. Current Diet Order/ Nutrition Support Clear liquid Patient / S.O Can Pertinent Medications D5%/NaCl IV at 120 ml/hr (490 kcal/day), zofran, protonix Pertinent Labs Na 133 L, K 3.3 L, BG 118 H, POC BG 106 H, ALB 2.7 L, Tbili 2 H, WBC 10.5 WNL, Plt Count 407 H, Mg 1.5 L Nutritional Hx/Data Height 1.8 m Height (Calculated Centimeters) 180.3 Current Weight (lbs) 83.461 kg Weight (Calculated Kilograms) 83.5 Weight (Calculated Grams) 99041.0 Usual body Weight (lbs) 183 % Usual Body Weight 101 [place] Body Weight 172 lb, 78 kg % [place] Body Weight 108 Recent Weight Change No Weight Status Overweight GI Symptoms GI Symptoms None Difficult in: Swallowing Food Allergies No Usual diet at home Pt denied any dietary restrictions Skin Integrity/Comment: Skin intact; reddened areas noted to sacrum, L heel, nicole area Current %PO Negligible < 25% Estimated Nutritional Goals BEE in Kcals: Using Current wt Calories/Kcals/Kg 30-35 kcal/kg CBW for sepsis Kcals Calculated 6841-8713 kcal/day Protein: Using Current wt Protein g/k.5-2 gm/kg CBW for sepsis Protein Calculated 126-168 gm/day Fluid: ml 2.5-3 L/day (1 ml/kcal/day for maintenance) Nutritional Problem 2. Problem Problem Possible swallowing difficulty Etiology related to recent Sx requiring intubation Signs/Symptoms: as evidenced by recent self- extubation and plans for swallow eval. 1. Problem Problem Increased nutritional needs Etiology related to metabolic demands Signs/Symptoms: as evidenced by estimated nutritional requirements for MD Dx of septicemia. Malnutrition Alert Is there a minimum of two criteria No selected? Query Text:Check all the applicable criteria. A minimum of two criteria are recommended for diagnosis of either severe or non-severe malnutrition. Malnutrition Related to Morbid Obesity Malnutrition related to morbid obesity No Intervention/Recommendation Comments * Consider advance diet if/ when medically appropriate ( clear liquid diet) * Consider ST swallow eval recommendations Expected Outcomes/Goals Expected Outcomes/Goals - Monitor provision and advancement of PO diet w/ goal of pt meeting at least 50% of estimated nutritional needs, labs trending WNL, normal GI function, and skin integrity/ wt maintenance within 2-3 days
[2017-03-03] MEDS: Lactobacillus Rhamnosus 10 Billion CFU Capsule PO SCH (13:23)
[2017-03-03] MEDS: Enoxaparin 30 mg/0.3 mL 0.3mL Syr SUBQ SCH ×2 (13:31→21:09)
--- NOTE | 2017-03-03 13:38 | General Progress Note ---
Subjective - Review of Systems Service Date: 03/03/17 Events since last encounter: labs noted still distended, no BM mineral oil or fleet to be given Objective - Results Result Diagrams: 03/03/17 04:18 03/03/17 04:18 Recent Labs: Laboratory Last Values WBC 8.3 Th/cmm (4.8-10.8) 03/03/17 04:18 RBC 4.14 Mil/cmm (3.80-5.80) 03/03/17 04:18 Hgb 12.7 gm/dL (12-16) 03/03/17 04:18 Hct 37.8 % (41.0-60) L 03/03/17 04:18 MCV 91.2 fl (80-99) 03/03/17 04:18 MCH 30.7 pg (27.0-31.0) 03/03/17 04:18 MCHC Differential 33.6 pg (28.0-36.0) 03/03/17 04:18 RDW 13.4 % (11.5-20.0) 03/03/17 04:18 Plt Count 483 Th/cmm (150-400) H 03/03/17 04:18 MPV 7.4 fl 03/03/17 04:18 Neutrophils % 61.3 % (40.0-80.0) 03/03/17 04:18 Band Neutrophils % 13 % (0-10) H 02/25/17 05:03 Lymphocytes % 21.3 % (20.0-50.0) 03/03/17 04:18 Monocytes % 8.4 % (2.0-10.0) 03/03/17 04:18 Eosinophils % 8.9 % (0.0-5.0) H 03/03/17 04:18 Basophils % 0.1 % (0.0-2.0) 03/03/17 04:18 Neutrophils (Manual) 77 % (40-80) 02/25/17 05:03 Lymphocytes 5 % (20-50) L 02/25/17 05:03 Monocytes 5 % (2-10) 02/25/17 05:03 Platelet Estimate ADEQUATE (NORMAL) 02/24/17 23:15 PT 12.4 SECONDS (9.5-11.5) H 02/26/17 04:10 INR 1.18 (0.5-1.4) 02/26/17 04:10 PTT (Actin FS) 35.9 SECONDS (26.0-38.0) 02/26/17 04:10 Specimen Source Arterial 02/25/17 08:30 Sample Site RB 02/25/17 08:30 pH 7.49 (7.35-7.45) H 02/25/17 08:30 pCO2 32.0 mmHg (35.0-45.0) L 02/25/17 08:30 pO2 62.0 mmHg (80.0-100.0) L 02/25/17 08:30 HCO3 26.1 mEq/L (20.0-26.0) H 02/25/17 08:30 Base Excess 1.6 mEq/L (-3.0-3.0) 02/25/17 08:30 O2 Saturation 93.0 % (92.0-100.0) 02/25/17 08:30 Florin Test NA 02/25/17 08:30 Vent Rate NA 02/25/17 08:30 Inspired O2 32 02/25/17 08:30 Tidal Volume NA 02/25/17 08:30 PEEP NA 02/25/17 08:30 Pressure (ins/psv/peep) NA 02/25/17 08:30 Critical Value SH 02/25/17 08:30 Sodium 135 mEq/L (136-145) L 03/03/17 04:18 Potassium 3.2 mEq/L (3.5-5.1) L 03/03/17 04:18 Chloride 102 mEq/L (98-107) 03/03/17 04:18 Carbon Dioxide 26.9 mEq/L (21.0-31.0) 03/03/17 04:18 Anion Gap 9.3 (7.0-16.0) 03/03/17 04:18 BUN 6 mg/dL (7-25) L 03/03/17 04:18 Creatinine 1.1 mg/dL (0.7-1.3) 03/03/17 04:18 Est GFR ( Amer) > 60.0 ml/min (>90) 03/03/17 04:18 Est GFR (Non-Af Amer) > 60.0 ml/min 03/03/17 04:18 BUN/Creatinine Ratio 5.5 03/03/17 04:18 Glucose 107 mg/dL (70-105) H 03/03/17 04:18 POC Glucose 114 MG/DL (70 - 105) H 03/03/17 12:15 Hemoglobin A1c % 6.1 % (4.0-6.0) H 02/25/17 05:03 Whole Bld Lactic Acid 1.30 mmol/L (0.60-1.99) 02/25/17 13:15 Calcium 8.4 mg/dL (8.6-10.3) L 03/03/17 04:18 Magnesium 1.8 mg/dL (1.9-2.7) L 03/03/17 04:18 Total Bilirubin 0.9 mg/dL (0.3-1.0) 03/03/17 04:18 Direct Bilirubin 1.38 mg/dL (0.0-0.2) H 03/01/17 04:21 AST 31 U/L (13-39) 03/03/17 04:18 ALT 19 U/L (7-52) 03/03/17 04:18 Alkaline Phosphatase 123 U/L (34-104) H 03/03/17 04:18 Ammonia 43 umol/L (16-53) 02/26/17 04:10 Total Protein 6.0 gm/dL (6.0-8.3) 03/03/17 04:18 Albumin 2.8 gm/dL (4.2-5.5) L 03/03/17 04:18 Globulin 3.2 gm/dL 03/03/17 04:18 Albumin/Globulin Ratio 0.9 (1.0-1.8) L 03/03/17 04:18 Lipase 37 U/L (11-82) 02/27/17 06:30 Tumor Marker AFP 1.5 ng/mL (0.0-8.3) 02/26/17 04:10 Urine Source RANDOM 02/24/17 22:50 Urine Color BROWN 02/24/17 22:50 Urine Clarity CLOUDY (CLEAR) 02/24/17 22:50 Urine pH 5.0 (4.6 - 8.0) 02/24/17 22:50 Ur Specific [place] >= 1.030 (1.005-1.030) 02/24/17 22:50 Urine Protein 100 mg/dL (NEGATIVE) H 02/24/17 22:50 Urine Glucose (UA) NEGATIVE mg/dL (NEGATIVE) 02/24/17 22:50 Urine Ketones TRACE mg/dL (NEGATIVE) 02/24/17 22:50 Urine Blood LARGE (NEGATIVE) H 02/24/17 22:50 Urine Nitrate NEGATIVE (NEGATIVE) 02/24/17 22:50 Urine Bilirubin MODERATE (NEGATIVE) H 02/24/17 22:50 Urine Urobilinogen 1.0 E.U./dL (0.2 - 1.0) 02/24/17 22:50 Ur Leukocyte Esterase TRACE (NEGATIVE) H 02/24/17 22:50 Urine RBC 25-50 /hpf (0-5) H 02/24/17 22:50 Urine WBC 6-10 /hpf (0-5) H 02/24/17 22:50 Ur Epithelial Cells FEW /lpf (FEW) 02/24/17 22:50 Urine Bacteria FEW /hpf (NONE SEEN) 02/24/17 22:50 Gentamicin 0.2 ug/mL (0.5-10.0) L 03/01/17 04:21 Gentamicin Peak 11.3 ug/ml (4.0-8.0) H 02/26/17 14:05 Gentamicin Trough 3.8 ug/ml (0.2-2.0) H 02/26/17 10:30 Helicobacter pylori Ab NEGATIVE (NEGATIVE) 02/26/17 11:45 Hepatitis A IgM Ab Negative (Negative) 02/26/17 04:10 Hep Bs Antigen Negative (Negative) 02/26/17 04:10 Hep B Core IgM Ab Negative (Negative) 02/26/17 04:10 Hepatitis C Antibody 0.1 s/co ratio (0.0-0.9) 02/26/17 04:10 Blood Type A POSITIVE 02/26/17 04:10 Antibody Screen NEGATIVE 02/26/17 04:10 - Physical Exam Vitals and I&O: Vital Signs Temp 97.5 F 03/03/17 12:00 Pulse 94 03/03/17 12:00 Resp 16 03/03/17 12:00 BP 119/67 03/03/17 12:00 Pulse Ox 99 03/03/17 12:00 Intake & Output 03/02/17 03/03/17 03/03/17 18:59 06:59 18:59 Intake Total 300 1535.667 50 Output Total 1300 1400 150 Balance -1000 135.667 -100 Weight (lbs) 84.368 kg 79.832 kg 79.832 kg Intake: Intake, IV Amount 50 375.667 Ampicillin Sodium/ 50 151.667 Sulbactam 3 gm In Sodium Chloride 0.9% 50 ml @ 100 mls/hr IV Q6HR [facility] Rx#: [id number] D5-0.45NS 1,000 ml @ 80 120.000 mls/hr IV .[id number] [facility] Rx #:[id number] Gentamicin 160 mg In 104 Sodium Chloride 0.9% 100 ml @ 100 mls/hr IV Q24HR [facility] Rx#:[id number] Oral 250 200 50 Tube Feeding 960 Output: Urine 1300 1400 150 Stool 0 Active Medications: Current Medications Albuterol/Ipratropium (Duoneb Neb) 3 ml HHN Q6HRT [facility] Stop: 04/26/17 12:59 Last Admin: 03/03/17 07:53 Dose: 3 ml Diphenhydramine HCl (Benadryl 50 Mg/Ml) 25 mg IM Q6HR PRN PRN Reason: Agitation Stop: 04/28/17 17:39 Last Admin: 03/02/17 06:43 Dose: 25 mg Enoxaparin Sodium (Lovenox) 30 mg SUBQ Q12HR [facility] Stop: 04/26/17 20:59 Last Admin: 03/03/17 13:31 Dose: 30 mg Haloperidol Lactate (Haldol) 3 mg IM Q6HR PRN PRN Reason: Agitation Stop: 05/01/17 10:27 Last Admin: 03/03/17 09:08 Dose: 3 mg Ampicillin Sodium/Sulbactam (Sodium 3 gm/ Sodium Chloride) 50 mls @ 100 mls/hr IV Q6HR [facility] Stop: 04/29/17 11:59 Last Infusion: 03/03/17 06:28 Dose: Infused Dextrose/Sodium Chloride (D5-0.45ns) 1,000 mls @ 80 mls/hr IV .[id number] [facility] Stop: 04/26/17 00:40 Last Admin: 03/03/17 06:26 Dose: 80 mls/hr Gentamicin Sulfate 160 mg/ (Sodium Chloride) 104 mls @ 100 mls/hr IV Q24HR@ 1400 [facility] Stop: 05/01/17 13:59 Potassium Chloride 40 meq/Lidocaine HCl 25 mg/ Sodium Chloride 272.5 mls @ 68 mls/hr IV X1 ONE Stop: 03/03/17 16:54 Magnesium Sulfate (Magnesium Sulfate Premix) 2 gm in 50 mls @ 25 mls/hr IV X1 ONE Stop: 03/03/17 14:53 Last Admin: 03/03/17 13:30 Dose: 25 mls/hr Insulin Aspart (Novolog) 0 units SUBQ ACHS [facility] PRN Reason: Protocol Stop: 04/26/17 05:59 Last Admin: 03/03/17 12:00 Dose: Not Given Lactobacillus Rhamnosus (Culturelle) 1 each PO DAILY [facility] Stop: 04/27/17 16:59 Last Admin: 03/03/17 13:23 Dose: Not Given Lorazepam (Ativan) 1 mg IM Q6HR PRN; Protocol PRN Reason: Agitation Stop: 04/28/17 17:38 Last Admin: 03/03/17 02:00 Dose: 1 mg Mineral Oil (Mineral Oil 30 Ml) 30 ml PO BID [facility] Stop: 05/01/17 16:59 Last Admin: 03/03/17 13:24 Dose: Not Given Miscellaneous (Gentamicin Iv Per Pharmacy) 1 ea MC PRN [facility] Stop: 04/25/17 22:29 Miscellaneous (Probiotic Screen) 1 ea PRN PRN PRN Reason: PROTOCOL Stop: 04/27/17 16:53 Morphine Sulfate (Morphine) 2 mg IVP Q4HR PRN PRN Reason: Pain (Moderate) Stop: 04/29/17 21:24 Last Admin: 03/02/17 23:17 Dose: 2 mg Ondansetron HCl (Zofran) 4 mg IV Q6H PRN PRN Reason: Nausea / Vomiting Stop: 04/26/17 06:18 Last Admin: 02/27/17 08:44 Dose: 4 mg Pantoprazole Sodium (Protonix) 40 mg IVP Q12H [facility] Stop: 04/26/17 08:59 Last Admin: 03/03/17 09:13 Dose: 40 mg Quetiapine Fumarate (Seroquel) 25 mg PO BID [facility] PRN Reason: Protocol Stop: 05/01/17 09:29 Last Admin: 03/03/17 13:24 Dose: Not Given Quetiapine Fumarate (Seroquel) 50 mg PO HS [facility] PRN Reason: Protocol Stop: 05/01/17 20:59 Last Admin: 03/02/17 21:34 Dose: 50 mg General: Alert, Oriented x3 Abdomen: Soft, Tender, Distended, Other (no guard or rebound, + distension) - Procedures Procedures: Procedures Procedure Code Date APPENDECTOMY 35847 02/24/17 EXCISION OF BOWEL POUCH 70411 02/24/17 EXCISION OF SMALL INTESTINE, OPEN APPROACH [id number] 02/24/17 REMOVAL OF GALLBLADDER 97328 02/24/17 RESECTION OF APPENDIX, OPEN APPROACH [id number] 02/24/17 RESECTION OF GALLBLADDER, OPEN APPROACH [id number] 02/24/17 RESPIRATORY VENTILATION, LESS THAN 24 CONSECUTIVE HOURS [id number] 02/24/17 VENT MGMT INPAT INIT DAY 84919 02/24/17 Nutritional Asmnt/Malnutr-PDOC - Dietary Evaluation Malnutrition Findings (Please click <Entered> for more info): Nutritional Asmnt/Malnutrition Start: 03/01/17 11: 48 Text: Status: Complete Freq: Document 03/01/17 11:48 MONROE (Rec: 03/01/17 12:00 MPENAFUERT KRISTYN -[id number]) Nutritional Asmnt/Malnutrition Patient General Information Nutritional Screening High Risk Screening Diagnosis Septicemia Pertinent Medical Hx/Surgical Hx COPD, alcoholism, s/p extubation or respiratory failure, DJD, psychotic disorder, CVA per MD notes Pt is POD 1 s/p open cholecystectomy, resection of Meckel's diverticulum, appendectomy Subjective Information Pt seen resting in bed, +O2 mask. Pt appeared over- nourished for ht, c/w anthropometrics and verified by pt. Per RN, pt extubated himself, and new MD orders for swallow eval prior to starting clear liquid diet. Pt reported feelings of hunger. Pt denied any supplement use. Per EMR, bowel sounds hypoactive; abd is firm and distended. Output (gastric drainage): 3024/1975 (+1049 ml ) per 12 hours. Pt is not yet meeting optimal nutritional needs. Pt is not appropriate for nutrition education. Current Diet Order/ Nutrition Support Clear liquid Patient / S.O Can Pertinent Medications D5%/NaCl IV at 120 ml/hr (490 kcal/day), zofran, protonix Pertinent Labs Na 133 L, K 3.3 L, BG 118 H, POC BG 106 H, ALB 2.7 L, Tbili 2 H, WBC 10.5 WNL, Plt Count 407 H, Mg 1.5 L Nutritional Hx/Data Height 1.8 m Height (Calculated Centimeters) 180.3 Current Weight (lbs) 83.461 kg Weight (Calculated Kilograms) 83.5 Weight (Calculated Grams) 34846.0 Usual body Weight (lbs) 183 % Usual Body Weight 101 [place] Body Weight 172 lb, 78 kg % [place] Body Weight 108 Recent Weight Change No Weight Status Overweight GI Symptoms GI Symptoms None Difficult in: Swallowing Food Allergies No Usual diet at home Pt denied any dietary restrictions Skin Integrity/Comment: Skin intact; reddened areas noted to sacrum, L heel, nicole area Current %PO Negligible < 25% Estimated Nutritional Goals BEE in Kcals: Using Current wt Calories/Kcals/Kg 30-35 kcal/kg CBW for sepsis Kcals Calculated 6560-0506 kcal/day Protein: Using Current wt Protein g/k.5-2 gm/kg CBW for sepsis Protein Calculated 126-168 gm/day Fluid: ml 2.5-3 L/day (1 ml/kcal/day for maintenance) Nutritional Problem 2. Problem Problem Possible swallowing difficulty Etiology related to recent Sx requiring intubation Signs/Symptoms: as evidenced by recent self- extubation and plans for swallow eval. 1. Problem Problem Increased nutritional needs Etiology related to metabolic demands Signs/Symptoms: as evidenced by estimated nutritional requirements for MD Dx of septicemia. Malnutrition Alert Is there a minimum of two criteria No selected? Query Text:Check all the applicable criteria. A minimum of two criteria are recommended for diagnosis of either severe or non-severe malnutrition. Malnutrition Related to Morbid Obesity Malnutrition related to morbid obesity No Intervention/Recommendation Comments * Consider advance diet if/ when medically appropriate ( clear liquid diet) * Consider ST swallow eval recommendations Expected Outcomes/Goals Expected Outcomes/Goals - Monitor provision and advancement of PO diet w/ goal of pt meeting at least 50% of estimated nutritional needs, labs trending WNL, normal GI function, and skin integrity/ wt maintenance within 2-3 days
[2017-03-03] MEDS ORDERED: Nicotine 7 mg/24 hr Tdm TD SCH (15:15)
[2017-03-03] MEDS: Gentamicin 160 MG in Sodium Chloride 0.9% 100 ML IV SCH (16:06)
[2017-03-03] MEDS: Metoclopramide 5 mg/mL 2mL Vial IVP SCH (17:38)
[2017-03-04] MEDS: SODIUM CHLORIDE 0.9% IV SCH ×4 (00:19→17:11)
[2017-03-04] MEDS: AMPICILLIN SODIUM IV SCH ×4 (00:19→17:11)
[2017-03-04] MEDS: SULBACTAM IV SCH ×4 (00:19→17:11)
[2017-03-04] MEDS: Metoclopramide 5 mg/mL 2mL Vial IVP SCH ×4 (00:20→17:29)
[2017-03-04] MEDS: Albuterol/Ipratropium Neb 3 ML AERS HHN SCH ×4 (00:51→19:05)
[2017-03-04] MEDS: D5-0.45NS 1,000 ML IV SCH ×2 (06:28→20:31)
[2017-03-04 06:29] LABS: % BASOPHILS 1.8 % (0.0-2.0); % EOSINOPHILS 6.5 % (0.0-5.0); % LYMPHOCYTES 16.8 % (20.0-50.0); % MONOCYTES 6.2 % (2.0-10.0); % NEUTROPHILS 68.7 % (40.0-80.0); HEMATOCRIT 41.5 % (41.0-60); HEMOGLOBIN 13.9 gm/dL (12-16); MEAN CELL VOLUME 89.4 fl (80-99); MEAN CORPUSCULAR HGB CONC 33.5 pg (28.0-36.0); MEAN PLATELET VOLUME 7.6 fl; NEUTROPHILE ABSOLUTE 6.6 Th/cmm (1.8-8.0); PLATELET COUNT 572 Th/cmm (150-400); RED BLOOD COUNT 4.64 Mil/cmm (3.80-5.80); RED CELL DISTRIBUTION WIDTH 13.4 % (11.5-20.0); WHITE BLOOD COUNT 9.6 Th/cmm (4.8-10.8)
[2017-03-04 06:56] LABS: ANION GAP 11.8 (7.0-16.0); BUN - UREA NITROGEN 5 mg/dL (7-25); CALCIUM SERUM 8.6 mg/dL (8.6-10.3); CARBON DIOXIDE 24.5 mEq/L (21.0-31.0); CHLORIDE 102 mEq/L (98-107); GLUCOSE 115 mg/dL (70-105); MAGNESIUM 1.9 mg/dL (1.9-2.7); POTASSIUM SERUM 3.3 mEq/L (3.5-5.1); SODIUM SERUM 135 mEq/L (136-145)
--- NOTE | 2017-03-04 08:17 | Diagnostic Imaging Report ---
Exam: KUB HISTORY: Small bowel obstruction Findings: 2 views of the abdomen reviewed. The study demonstrates distention of small bowel loops suggestive of small bowel obstruction. Clinical correlation recommended. Multiple metallic clips are noted in the right upper quadrant status post cholecystectomy. IMPRESSION: Most likely persistent small bowel obstruction.
[2017-03-04] MEDS: INSULIN ASPART, RECOMBINANT 100 UNITS/ML SUBQ SCH ×4 (08:37→21:35)
[2017-03-04] MEDS: Enoxaparin 30 mg/0.3 mL 0.3mL Syr SUBQ SCH ×2 (08:57→21:27)
[2017-03-04] MEDS: Lactobacillus Rhamnosus 10 Billion CFU Capsule PO SCH (08:58)
[2017-03-04] MEDS: Nicotine 14 mg/24 hr Tdm TD SCH (08:58)
[2017-03-04] MEDS ORDERED: MINERAL OIL ENEMA 135 ML BOTTLE RC PRN (09:50)
--- NOTE | 2017-03-04 09:50 | GI Progress Note ---
Subjective - Review of Systems Subjective: had two loose BMs overnight, still distended Objective - Results Result Diagrams: 03/04/17 06:08 03/04/17 06:08 Recent Labs: Laboratory Last Values WBC 9.6 Th/cmm (4.8-10.8) 03/04/17 06:08 RBC 4.64 Mil/cmm (3.80-5.80) 03/04/17 06:08 Hgb 13.9 gm/dL (12-16) 03/04/17 06:08 Hct 41.5 % (41.0-60) 03/04/17 06:08 MCV 89.4 fl (80-99) 03/04/17 06:08 MCH 30.0 pg (27.0-31.0) 03/04/17 06:08 MCHC Differential 33.5 pg (28.0-36.0) 03/04/17 06:08 RDW 13.4 % (11.5-20.0) 03/04/17 06:08 Plt Count 572 Th/cmm (150-400) H 03/04/17 06:08 MPV 7.6 fl 03/04/17 06:08 Neutrophils % 68.7 % (40.0-80.0) 03/04/17 06:08 Band Neutrophils % 13 % (0-10) H 02/25/17 05:03 Lymphocytes % 16.8 % (20.0-50.0) L 03/04/17 06:08 Monocytes % 6.2 % (2.0-10.0) 03/04/17 06:08 Eosinophils % 6.5 % (0.0-5.0) H 03/04/17 06:08 Basophils % 1.8 % (0.0-2.0) 03/04/17 06:08 Neutrophils (Manual) 77 % (40-80) 02/25/17 05:03 Lymphocytes 5 % (20-50) L 02/25/17 05:03 Monocytes 5 % (2-10) 02/25/17 05:03 Platelet Estimate ADEQUATE (NORMAL) 02/24/17 23:15 PT 12.4 SECONDS (9.5-11.5) H 02/26/17 04:10 INR 1.18 (0.5-1.4) 02/26/17 04:10 PTT (Actin FS) 35.9 SECONDS (26.0-38.0) 02/26/17 04:10 Specimen Source Arterial 02/25/17 08:30 Sample Site RB 02/25/17 08:30 pH 7.49 (7.35-7.45) H 02/25/17 08:30 pCO2 32.0 mmHg (35.0-45.0) L 02/25/17 08:30 pO2 62.0 mmHg (80.0-100.0) L 02/25/17 08:30 HCO3 26.1 mEq/L (20.0-26.0) H 02/25/17 08:30 Base Excess 1.6 mEq/L (-3.0-3.0) 02/25/17 08:30 O2 Saturation 93.0 % (92.0-100.0) 02/25/17 08:30 Florin Test NA 02/25/17 08:30 Vent Rate NA 02/25/17 08:30 Inspired O2 32 02/25/17 08:30 Tidal Volume NA 02/25/17 08:30 PEEP NA 02/25/17 08:30 Pressure (ins/psv/peep) NA 02/25/17 08:30 Critical Value SH 02/25/17 08:30 Sodium 135 mEq/L (136-145) L 03/04/17 06:08 Potassium 3.3 mEq/L (3.5-5.1) L 03/04/17 06:08 Chloride 102 mEq/L (98-107) 03/04/17 06:08 Carbon Dioxide 24.5 mEq/L (21.0-31.0) 03/04/17 06:08 Anion Gap 11.8 (7.0-16.0) 03/04/17 06:08 BUN 5 mg/dL (7-25) L 03/04/17 06:08 Creatinine 1.0 mg/dL (0.7-1.3) 03/04/17 06:08 Est GFR ( Amer) > 60.0 ml/min (>90) 03/04/17 06:08 Est GFR (Non-Af Amer) > 60.0 ml/min 03/04/17 06:08 BUN/Creatinine Ratio 5.0 03/04/17 06:08 Glucose 115 mg/dL (70-105) H 03/04/17 06:08 POC Glucose 116 MG/DL (70 - 105) H 03/04/17 08:06 Hemoglobin A1c % 6.1 % (4.0-6.0) H 02/25/17 05:03 Whole Bld Lactic Acid 1.30 mmol/L (0.60-1.99) 02/25/17 13:15 Calcium 8.6 mg/dL (8.6-10.3) 03/04/17 06:08 Magnesium 1.9 mg/dL (1.9-2.7) 03/04/17 06:08 Total Bilirubin 0.9 mg/dL (0.3-1.0) 03/03/17 04:18 Direct Bilirubin 1.38 mg/dL (0.0-0.2) H 03/01/17 04:21 AST 31 U/L (13-39) 03/03/17 04:18 ALT 19 U/L (7-52) 03/03/17 04:18 Alkaline Phosphatase 123 U/L (34-104) H 03/03/17 04:18 Ammonia 43 umol/L (16-53) 02/26/17 04:10 B-Natriuretic Peptide 47.5 pg/mL (5.0-100.0) 03/04/17 06:08 Total Protein 6.0 gm/dL (6.0-8.3) 03/03/17 04:18 Albumin 2.8 gm/dL (4.2-5.5) L 03/03/17 04:18 Globulin 3.2 gm/dL 03/03/17 04:18 Albumin/Globulin Ratio 0.9 (1.0-1.8) L 03/03/17 04:18 Lipase 37 U/L (11-82) 02/27/17 06:30 Tumor Marker AFP 1.5 ng/mL (0.0-8.3) 02/26/17 04:10 Urine Source RANDOM 02/24/17 22:50 Urine Color BROWN 02/24/17 22:50 Urine Clarity CLOUDY (CLEAR) 02/24/17 22:50 Urine pH 5.0 (4.6 - 8.0) 02/24/17 22:50 Ur Specific [place] >= 1.030 (1.005-1.030) 02/24/17 22:50 Urine Protein 100 mg/dL (NEGATIVE) H 02/24/17 22:50 Urine Glucose (UA) NEGATIVE mg/dL (NEGATIVE) 02/24/17 22:50 Urine Ketones TRACE mg/dL (NEGATIVE) 02/24/17 22:50 Urine Blood LARGE (NEGATIVE) H 02/24/17 22:50 Urine Nitrate NEGATIVE (NEGATIVE) 02/24/17 22:50 Urine Bilirubin MODERATE (NEGATIVE) H 02/24/17 22:50 Urine Urobilinogen 1.0 E.U./dL (0.2 - 1.0) 02/24/17 22:50 Ur Leukocyte Esterase TRACE (NEGATIVE) H 02/24/17 22:50 Urine RBC 25-50 /hpf (0-5) H 02/24/17 22:50 Urine WBC 6-10 /hpf (0-5) H 02/24/17 22:50 Ur Epithelial Cells FEW /lpf (FEW) 02/24/17 22:50 Urine Bacteria FEW /hpf (NONE SEEN) 02/24/17 22:50 Gentamicin 0.2 ug/mL (0.5-10.0) L 03/01/17 04:21 Gentamicin Peak 11.3 ug/ml (4.0-8.0) H 02/26/17 14:05 Gentamicin Trough 3.8 ug/ml (0.2-2.0) H 02/26/17 10:30 Helicobacter pylori Ab NEGATIVE (NEGATIVE) 02/26/17 11:45 Hepatitis A IgM Ab Negative (Negative) 02/26/17 04:10 Hep Bs Antigen Negative (Negative) 02/26/17 04:10 Hep B Core IgM Ab Negative (Negative) 02/26/17 04:10 Hepatitis C Antibody 0.1 s/co ratio (0.0-0.9) 02/26/17 04:10 Blood Type A POSITIVE 02/26/17 04:10 Antibody Screen NEGATIVE 02/26/17 04:10 - Physical Exam Vitals and I&O: Vital Signs Temp 97.6 F 03/04/17 04:00 Pulse 91 03/04/17 07:49 Resp 18 03/04/17 07:49 BP 127/81 03/04/17 04:00 Pulse Ox 99 03/04/17 07:49 Intake & Output 03/03/17 03/04/17 03/04/17 18:59 06:59 18:59 Intake Total 9501.882 4410 Output Total 1120 700 Balance -10.667 554 Weight (lbs) 79.832 kg 80.739 kg Intake: Intake, IV Amount 011.566 9753 Ampicillin Sodium/ 50 100 Sulbactam 3 gm In Sodium Chloride 0.9% 50 ml @ 100 mls/hr IV Q6HR [facility] Rx#: [id number] D5-0.45NS 1,000 ml @ 80 523.249 0681 mls/hr IV .[id number] [facility] Rx #:[id number] Gentamicin 160 mg In 104 Sodium Chloride 0.9% 100 ml @ 100 mls/hr IV Q24HR@ 1400 [facility] Rx#:[id number] Oral 50 Other 120 Output: Urine 1120 700 Stool 0 Other: # Bowel Movements 2 Active Medications: Current Medications Albuterol/Ipratropium (Duoneb Neb) 3 ml HHN Q6HRT [facility] Stop: 04/26/17 12:59 Last Admin: 03/04/17 07:44 Dose: 3 ml Diphenhydramine HCl (Benadryl 50 Mg/Ml) 25 mg IM Q6HR PRN PRN Reason: Agitation Stop: 04/28/17 17:39 Last Admin: 03/02/17 06:43 Dose: 25 mg Enoxaparin Sodium (Lovenox) 30 mg SUBQ Q12HR [facility] Stop: 04/26/17 20:59 Last Admin: 03/04/17 08:57 Dose: 30 mg Haloperidol Lactate (Haldol) 3 mg IM Q6HR PRN PRN Reason: Agitation Stop: 05/01/17 10:27 Last Admin: 03/03/17 22:43 Dose: 3 mg Ampicillin Sodium/Sulbactam (Sodium 3 gm/ Sodium Chloride) 50 mls @ 100 mls/hr IV Q6HR [facility] Stop: 04/29/17 11:59 Last Admin: 03/04/17 06:29 Dose: 100 mls/hr Dextrose/Sodium Chloride (D5-0.45ns) 1,000 mls @ 80 mls/hr IV .[id number] [facility] Stop: 04/26/17 00:40 Last Admin: 03/04/17 06:28 Dose: 80 mls/hr Gentamicin Sulfate 160 mg/ (Sodium Chloride) 104 mls @ 100 mls/hr IV Q24HR@ 1400 [facility] Stop: 05/01/17 13:59 Last Infusion: 03/03/17 19:34 Dose: Infused Insulin Aspart (Novolog) 0 units SUBQ ACHS [facility] PRN Reason: Protocol Stop: 04/26/17 05:59 Last Admin: 03/04/17 08:37 Dose: Not Given Lactobacillus Rhamnosus (Culturelle) 1 each PO DAILY [facility] Stop: 04/27/17 16:59 Last Admin: 03/04/17 08:58 Dose: 1 each Lorazepam (Ativan) 1 mg IM Q6HR PRN; Protocol PRN Reason: Agitation Stop: 04/28/17 17:38 Last Admin: 03/03/17 15:40 Dose: 1 mg Metoclopramide HCl (Reglan) 10 mg IVP Q6HR [facility] Stop: 05/02/17 17:59 Last Admin: 03/04/17 06:29 Dose: 10 mg Mineral Oil (Mineral Oil 30 Ml) 30 ml PO BID [facility] Stop: 05/01/17 16:59 Last Admin: 03/04/17 08:58 Dose: 30 ml Miscellaneous (Gentamicin Iv Per Pharmacy) 1 ea MC PRN [facility] Stop: 04/25/17 22:29 Miscellaneous (Probiotic Screen) 1 ea PRN PRN PRN Reason: PROTOCOL Stop: 04/27/17 16:53 Morphine Sulfate (Morphine) 2 mg IVP Q4HR PRN PRN Reason: Pain (Moderate) Stop: 04/29/17 21:24 Last Admin: 03/02/17 23:17 Dose: 2 mg Nicotine (Nicotine Transdermal System) 14 mg TD DAILY [facility] Stop: 05/02/17 16:11 Last Admin: 03/04/17 08:58 Dose: 14 mg Ondansetron HCl (Zofran) 4 mg IV Q6H PRN PRN Reason: Nausea / Vomiting Stop: 04/26/17 06:18 Last Admin: 02/27/17 08:44 Dose: 4 mg Pantoprazole Sodium (Protonix) 40 mg IVP Q12H [facility] Stop: 04/26/17 08:59 Last Admin: 03/03/17 21:10 Dose: 40 mg Quetiapine Fumarate (Seroquel) 25 mg PO BID [facility] PRN Reason: Protocol Stop: 05/01/17 09:29 Last Admin: 03/04/17 08:58 Dose: 25 mg Quetiapine Fumarate (Seroquel) 75 mg PO HS [facility] PRN Reason: Protocol Stop: 05/03/17 07:20 General: Alert, Oriented x3 Abdomen: Soft, Tender, Distended, Other (no guard or rebound, + distension) - Procedures Procedures: Procedures Procedure Code Date APPENDECTOMY 87481 02/24/17 EXCISION OF BOWEL POUCH 23615 02/24/17 EXCISION OF SMALL INTESTINE, OPEN APPROACH [id number] 02/24/17 REMOVAL OF GALLBLADDER 15175 02/24/17 RESECTION OF APPENDIX, OPEN APPROACH [id number] 02/24/17 RESECTION OF GALLBLADDER, OPEN APPROACH [id number] 02/24/17 RESPIRATORY VENTILATION, LESS THAN 24 CONSECUTIVE HOURS [id number] 02/24/17 VENT MGMT INPAT INIT DAY 77675 02/24/17 Assessment/Plan - Assessment Assessment: # Acute cholecystitis s/p cholecystectomy on 03/01 # Ileus, likely post op - Insert NG tube to intermittent suction to help with post op ileus - NPO for now - mineral oil enema prn - encourage the pt to move in bed and ambulate with PT - diet as per his surgeon, Dr Rodriguez
--- NOTE | 2017-03-04 10:15 | General Progress Note ---
Subjective - Review of Systems Service Date: 03/04/17 Events since last encounter: having loose stools abdomen still distended MICHELA drainage serous Objective - Results Result Diagrams: 03/04/17 06:08 03/04/17 06:08 Recent Labs: Laboratory Last Values WBC 9.6 Th/cmm (4.8-10.8) 03/04/17 06:08 RBC 4.64 Mil/cmm (3.80-5.80) 03/04/17 06:08 Hgb 13.9 gm/dL (12-16) 03/04/17 06:08 Hct 41.5 % (41.0-60) 03/04/17 06:08 MCV 89.4 fl (80-99) 03/04/17 06:08 MCH 30.0 pg (27.0-31.0) 03/04/17 06:08 MCHC Differential 33.5 pg (28.0-36.0) 03/04/17 06:08 RDW 13.4 % (11.5-20.0) 03/04/17 06:08 Plt Count 572 Th/cmm (150-400) H 03/04/17 06:08 MPV 7.6 fl 03/04/17 06:08 Neutrophils % 68.7 % (40.0-80.0) 03/04/17 06:08 Band Neutrophils % 13 % (0-10) H 02/25/17 05:03 Lymphocytes % 16.8 % (20.0-50.0) L 03/04/17 06:08 Monocytes % 6.2 % (2.0-10.0) 03/04/17 06:08 Eosinophils % 6.5 % (0.0-5.0) H 03/04/17 06:08 Basophils % 1.8 % (0.0-2.0) 03/04/17 06:08 Neutrophils (Manual) 77 % (40-80) 02/25/17 05:03 Lymphocytes 5 % (20-50) L 02/25/17 05:03 Monocytes 5 % (2-10) 02/25/17 05:03 Platelet Estimate ADEQUATE (NORMAL) 02/24/17 23:15 PT 12.4 SECONDS (9.5-11.5) H 02/26/17 04:10 INR 1.18 (0.5-1.4) 02/26/17 04:10 PTT (Actin FS) 35.9 SECONDS (26.0-38.0) 02/26/17 04:10 Specimen Source Arterial 02/25/17 08:30 Sample Site RB 02/25/17 08:30 pH 7.49 (7.35-7.45) H 02/25/17 08:30 pCO2 32.0 mmHg (35.0-45.0) L 02/25/17 08:30 pO2 62.0 mmHg (80.0-100.0) L 02/25/17 08:30 HCO3 26.1 mEq/L (20.0-26.0) H 02/25/17 08:30 Base Excess 1.6 mEq/L (-3.0-3.0) 02/25/17 08:30 O2 Saturation 93.0 % (92.0-100.0) 02/25/17 08:30 Florin Test NA 02/25/17 08:30 Vent Rate NA 02/25/17 08:30 Inspired O2 32 02/25/17 08:30 Tidal Volume NA 02/25/17 08:30 PEEP NA 02/25/17 08:30 Pressure (ins/psv/peep) NA 02/25/17 08:30 Critical Value SH 02/25/17 08:30 Sodium 135 mEq/L (136-145) L 03/04/17 06:08 Potassium 3.3 mEq/L (3.5-5.1) L 03/04/17 06:08 Chloride 102 mEq/L (98-107) 03/04/17 06:08 Carbon Dioxide 24.5 mEq/L (21.0-31.0) 03/04/17 06:08 Anion Gap 11.8 (7.0-16.0) 03/04/17 06:08 BUN 5 mg/dL (7-25) L 03/04/17 06:08 Creatinine 1.0 mg/dL (0.7-1.3) 03/04/17 06:08 Est GFR ( Amer) > 60.0 ml/min (>90) 03/04/17 06:08 Est GFR (Non-Af Amer) > 60.0 ml/min 03/04/17 06:08 BUN/Creatinine Ratio 5.0 03/04/17 06:08 Glucose 115 mg/dL (70-105) H 03/04/17 06:08 POC Glucose 116 MG/DL (70 - 105) H 03/04/17 08:06 Hemoglobin A1c % 6.1 % (4.0-6.0) H 02/25/17 05:03 Whole Bld Lactic Acid 1.30 mmol/L (0.60-1.99) 02/25/17 13:15 Calcium 8.6 mg/dL (8.6-10.3) 03/04/17 06:08 Magnesium 1.9 mg/dL (1.9-2.7) 03/04/17 06:08 Total Bilirubin 0.9 mg/dL (0.3-1.0) 03/03/17 04:18 Direct Bilirubin 1.38 mg/dL (0.0-0.2) H 03/01/17 04:21 AST 31 U/L (13-39) 03/03/17 04:18 ALT 19 U/L (7-52) 03/03/17 04:18 Alkaline Phosphatase 123 U/L (34-104) H 03/03/17 04:18 Ammonia 43 umol/L (16-53) 02/26/17 04:10 B-Natriuretic Peptide 47.5 pg/mL (5.0-100.0) 03/04/17 06:08 Total Protein 6.0 gm/dL (6.0-8.3) 03/03/17 04:18 Albumin 2.8 gm/dL (4.2-5.5) L 03/03/17 04:18 Globulin 3.2 gm/dL 03/03/17 04:18 Albumin/Globulin Ratio 0.9 (1.0-1.8) L 03/03/17 04:18 Lipase 37 U/L (11-82) 02/27/17 06:30 Tumor Marker AFP 1.5 ng/mL (0.0-8.3) 02/26/17 04:10 Urine Source RANDOM 02/24/17 22:50 Urine Color BROWN 02/24/17 22:50 Urine Clarity CLOUDY (CLEAR) 02/24/17 22:50 Urine pH 5.0 (4.6 - 8.0) 02/24/17 22:50 Ur Specific [place] >= 1.030 (1.005-1.030) 02/24/17 22:50 Urine Protein 100 mg/dL (NEGATIVE) H 02/24/17 22:50 Urine Glucose (UA) NEGATIVE mg/dL (NEGATIVE) 02/24/17 22:50 Urine Ketones TRACE mg/dL (NEGATIVE) 02/24/17 22:50 Urine Blood LARGE (NEGATIVE) H 02/24/17 22:50 Urine Nitrate NEGATIVE (NEGATIVE) 02/24/17 22:50 Urine Bilirubin MODERATE (NEGATIVE) H 02/24/17 22:50 Urine Urobilinogen 1.0 E.U./dL (0.2 - 1.0) 02/24/17 22:50 Ur Leukocyte Esterase TRACE (NEGATIVE) H 02/24/17 22:50 Urine RBC 25-50 /hpf (0-5) H 02/24/17 22:50 Urine WBC 6-10 /hpf (0-5) H 02/24/17 22:50 Ur Epithelial Cells FEW /lpf (FEW) 02/24/17 22:50 Urine Bacteria FEW /hpf (NONE SEEN) 02/24/17 22:50 Gentamicin 0.2 ug/mL (0.5-10.0) L 03/01/17 04:21 Gentamicin Peak 11.3 ug/ml (4.0-8.0) H 02/26/17 14:05 Gentamicin Trough 3.8 ug/ml (0.2-2.0) H 02/26/17 10:30 Helicobacter pylori Ab NEGATIVE (NEGATIVE) 02/26/17 11:45 Hepatitis A IgM Ab Negative (Negative) 02/26/17 04:10 Hep Bs Antigen Negative (Negative) 02/26/17 04:10 Hep B Core IgM Ab Negative (Negative) 02/26/17 04:10 Hepatitis C Antibody 0.1 s/co ratio (0.0-0.9) 02/26/17 04:10 Blood Type A POSITIVE 02/26/17 04:10 Antibody Screen NEGATIVE 02/26/17 04:10 - Physical Exam Vitals and I&O: Vital Signs Temp 97.6 F 03/04/17 04:00 Pulse 91 03/04/17 07:49 Resp 18 03/04/17 07:49 BP 127/81 03/04/17 04:00 Pulse Ox 99 03/04/17 07:49 Intake & Output 03/03/17 03/04/17 03/04/17 18:59 06:59 18:59 Intake Total 9976.163 8845 Output Total 1120 700 Balance -10.667 554 Weight (lbs) 79.832 kg 80.739 kg Intake: Intake, IV Amount 769.752 6399 Ampicillin Sodium/ 50 100 Sulbactam 3 gm In Sodium Chloride 0.9% 50 ml @ 100 mls/hr IV Q6HR [facility] Rx#: [id number] D5-0.45NS 1,000 ml @ 80 602.144 0198 mls/hr IV .[id number] [facility] Rx #:[id number] Gentamicin 160 mg In 104 Sodium Chloride 0.9% 100 ml @ 100 mls/hr IV Q24HR@ 1400 [facility] Rx#:[id number] Oral 50 Other 120 Output: Urine 1120 700 Stool 0 Other: # Bowel Movements 2 Active Medications: Current Medications Albuterol/Ipratropium (Duoneb Neb) 3 ml HHN Q6HRT [facility] Stop: 04/26/17 12:59 Last Admin: 03/04/17 07:44 Dose: 3 ml Diphenhydramine HCl (Benadryl 50 Mg/Ml) 25 mg IM Q6HR PRN PRN Reason: Agitation Stop: 04/28/17 17:39 Last Admin: 03/02/17 06:43 Dose: 25 mg Enoxaparin Sodium (Lovenox) 30 mg SUBQ Q12HR [facility] Stop: 04/26/17 20:59 Last Admin: 03/04/17 08:57 Dose: 30 mg Haloperidol Lactate (Haldol) 3 mg IM Q6HR PRN PRN Reason: Agitation Stop: 05/01/17 10:27 Last Admin: 03/03/17 22:43 Dose: 3 mg Ampicillin Sodium/Sulbactam (Sodium 3 gm/ Sodium Chloride) 50 mls @ 100 mls/hr IV Q6HR [facility] Stop: 04/29/17 11:59 Last Admin: 03/04/17 06:29 Dose: 100 mls/hr Dextrose/Sodium Chloride (D5-0.45ns) 1,000 mls @ 80 mls/hr IV .[id number] [facility] Stop: 04/26/17 00:40 Last Admin: 03/04/17 06:28 Dose: 80 mls/hr Gentamicin Sulfate 160 mg/ (Sodium Chloride) 104 mls @ 100 mls/hr IV Q24HR@ 1400 [facility] Stop: 05/01/17 13:59 Last Infusion: 03/03/17 19:34 Dose: Infused Insulin Aspart (Novolog) 0 units SUBQ ACHS [facility] PRN Reason: Protocol Stop: 04/26/17 05:59 Last Admin: 03/04/17 08:37 Dose: Not Given Lactobacillus Rhamnosus (Culturelle) 1 each PO DAILY [facility] Stop: 04/27/17 16:59 Last Admin: 03/04/17 08:58 Dose: 1 each Lorazepam (Ativan) 1 mg IM Q6HR PRN; Protocol PRN Reason: Agitation Stop: 04/28/17 17:38 Last Admin: 03/03/17 15:40 Dose: 1 mg Metoclopramide HCl (Reglan) 10 mg IVP Q6HR [facility] Stop: 05/02/17 17:59 Last Admin: 03/04/17 06:29 Dose: 10 mg Mineral Oil (Mineral Oil 30 Ml) 30 ml PO BID [facility] Stop: 05/01/17 16:59 Last Admin: 03/04/17 08:58 Dose: 30 ml Mineral Oil (Fleet Mineral Oil) 135 ml RC DAILY PRN PRN Reason: Constipation Stop: 05/03/17 09:49 Miscellaneous (Gentamicin Iv Per Pharmacy) 1 ea MC PRN [facility] Stop: 04/25/17 22:29 Miscellaneous (Probiotic Screen) 1 ea PRN PRN PRN Reason: PROTOCOL Stop: 04/27/17 16:53 Morphine Sulfate (Morphine) 2 mg IVP Q4HR PRN PRN Reason: Pain (Moderate) Stop: 04/29/17 21:24 Last Admin: 03/02/17 23:17 Dose: 2 mg Nicotine (Nicotine Transdermal System) 14 mg TD DAILY [facility] Stop: 05/02/17 16:11 Last Admin: 03/04/17 08:58 Dose: 14 mg Ondansetron HCl (Zofran) 4 mg IV Q6H PRN PRN Reason: Nausea / Vomiting Stop: 04/26/17 06:18 Last Admin: 02/27/17 08:44 Dose: 4 mg Pantoprazole Sodium (Protonix) 40 mg IVP Q12H [facility] Stop: 04/26/17 08:59 Last Admin: 03/03/17 21:10 Dose: 40 mg Quetiapine Fumarate (Seroquel) 25 mg PO BID [facility] PRN Reason: Protocol Stop: 05/01/17 09:29 Last Admin: 03/04/17 08:58 Dose: 25 mg Quetiapine Fumarate (Seroquel) 75 mg PO HS [facility] PRN Reason: Protocol Stop: 05/03/17 07:20 General: Alert, Oriented x3 Abdomen: Soft, Tender, Distended, Other (no guard or rebound, + distension) - Procedures Procedures: Procedures Procedure Code Date APPENDECTOMY 97818 02/24/17 EXCISION OF BOWEL POUCH 43180 02/24/17 EXCISION OF SMALL INTESTINE, OPEN APPROACH [id number] 02/24/17 REMOVAL OF GALLBLADDER 16656 02/24/17 RESECTION OF APPENDIX, OPEN APPROACH [id number] 02/24/17 RESECTION OF GALLBLADDER, OPEN APPROACH [id number] 02/24/17 RESPIRATORY VENTILATION, LESS THAN 24 CONSECUTIVE HOURS [id number] 02/24/17 VENT MGMT INPAT INIT DAY 84477 02/24/17 Nutritional Asmnt/Malnutr-PDOC - Dietary Evaluation Malnutrition Findings (Please click <Entered> for more info): Nutritional Asmnt/Malnutrition Start: 03/01/17 11: 48 Text: Status: Complete Freq: Document 03/01/17 11:48 MONROE (Rec: 03/01/17 12:00 MONROE SIMONS -[id number]) Nutritional Asmnt/Malnutrition Patient General Information Nutritional Screening High Risk Screening Diagnosis Septicemia Pertinent Medical Hx/Surgical Hx COPD, alcoholism, s/p extubation or respiratory failure, DJD, psychotic disorder, CVA per MD notes Pt is POD 1 s/p open cholecystectomy, resection of Meckel's diverticulum, appendectomy Subjective Information Pt seen resting in bed, +O2 mask. Pt appeared over- nourished for ht, c/w anthropometrics and verified by pt. Per RN, pt extubated himself, and new MD orders for swallow eval prior to starting clear liquid diet. Pt reported feelings of hunger. Pt denied any supplement use. Per EMR, bowel sounds hypoactive; abd is firm and distended. Output (gastric drainage): 3024/1975 (+1049 ml ) per 12 hours. Pt is not yet meeting optimal nutritional needs. Pt is not appropriate for nutrition education. Current Diet Order/ Nutrition Support Clear liquid Patient / S.O Can Pertinent Medications D5%/NaCl IV at 120 ml/hr (490 kcal/day), zofran, protonix Pertinent Labs Na 133 L, K 3.3 L, BG 118 H, POC BG 106 H, ALB 2.7 L, Tbili 2 H, WBC 10.5 WNL, Plt Count 407 H, Mg 1.5 L Nutritional Hx/Data Height 1.8 m Height (Calculated Centimeters) 180.3 Current Weight (lbs) 83.461 kg Weight (Calculated Kilograms) 83.5 Weight (Calculated Grams) 94388.0 Usual body Weight (lbs) 183 % Usual Body Weight 101 Raymond Body Weight 172 lb, 78 kg % Raymond Body Weight 108 Recent Weight Change No Weight Status Overweight GI Symptoms GI Symptoms None Difficult in: Swallowing Food Allergies No Usual diet at home Pt denied any dietary restrictions Skin Integrity/Comment: Skin intact; reddened areas noted to sacrum, L heel, nicole area Current %PO Negligible < 25% Estimated Nutritional Goals BEE in Kcals: Using Current wt Calories/Kcals/Kg 30-35 kcal/kg CBW for sepsis Kcals Calculated 9358-6279 kcal/day Protein: Using Current wt Protein g/k.5-2 gm/kg CBW for sepsis Protein Calculated 126-168 gm/day Fluid: ml 2.5-3 L/day (1 ml/kcal/day for maintenance) Nutritional Problem 2. Problem Problem Possible swallowing difficulty Etiology related to recent Sx requiring intubation Signs/Symptoms: as evidenced by recent self- extubation and plans for swallow eval. 1. Problem Problem Increased nutritional needs Etiology related to metabolic demands Signs/Symptoms: as evidenced by estimated nutritional requirements for MD Dx of septicemia. Malnutrition Alert Is there a minimum of two criteria No selected? Query Text:Check all the applicable criteria. A minimum of two criteria are recommended for diagnosis of either severe or non-severe malnutrition. Malnutrition Related to Morbid Obesity Malnutrition related to morbid obesity No Intervention/Recommendation Comments * Consider advance diet if/ when medically appropriate ( clear liquid diet) * Consider ST swallow eval recommendations Expected Outcomes/Goals Expected Outcomes/Goals - Monitor provision and advancement of PO diet w/ goal of pt meeting at least 50% of estimated nutritional needs, labs trending WNL, normal GI function, and skin integrity/ wt maintenance within 2-3 days
[2017-03-04] MEDS ORDERED: Potassium Chloride 40 MEQ, Lidocaine 1% 20mL Vial 25 MG in Sodium Chloride 0.9% 250 ML IV ONE (11:35)
--- NOTE | 2017-03-04 11:37 | Internal Medicine Prog Note ---
Internal Medicine Subjective - Subjective Patient seen and examined:: with staff, chart reviewed Patient is:: awake, verbal, interactive, confused Patient Complaints of:: congestion, diarrhea, bloated Per staff patient has:: no adverse event, poor appetite, tolerating meds, other (self extubation) Internal Medicine Objective - Results Result Diagrams: 03/04/17 06:08 03/04/17 06:08 Recent Labs: Laboratory Last Values WBC 9.6 Th/cmm (4.8-10.8) 03/04/17 06:08 RBC 4.64 Mil/cmm (3.80-5.80) 03/04/17 06:08 Hgb 13.9 gm/dL (12-16) 03/04/17 06:08 Hct 41.5 % (41.0-60) 03/04/17 06:08 MCV 89.4 fl (80-99) 03/04/17 06:08 MCH 30.0 pg (27.0-31.0) 03/04/17 06:08 MCHC Differential 33.5 pg (28.0-36.0) 03/04/17 06:08 RDW 13.4 % (11.5-20.0) 03/04/17 06:08 Plt Count 572 Th/cmm (150-400) H 03/04/17 06:08 MPV 7.6 fl 03/04/17 06:08 Neutrophils % 68.7 % (40.0-80.0) 03/04/17 06:08 Band Neutrophils % 13 % (0-10) H 02/25/17 05:03 Lymphocytes % 16.8 % (20.0-50.0) L 03/04/17 06:08 Monocytes % 6.2 % (2.0-10.0) 03/04/17 06:08 Eosinophils % 6.5 % (0.0-5.0) H 03/04/17 06:08 Basophils % 1.8 % (0.0-2.0) 03/04/17 06:08 Neutrophils (Manual) 77 % (40-80) 02/25/17 05:03 Lymphocytes 5 % (20-50) L 02/25/17 05:03 Monocytes 5 % (2-10) 02/25/17 05:03 Platelet Estimate ADEQUATE (NORMAL) 02/24/17 23:15 PT 12.4 SECONDS (9.5-11.5) H 02/26/17 04:10 INR 1.18 (0.5-1.4) 02/26/17 04:10 PTT (Actin FS) 35.9 SECONDS (26.0-38.0) 02/26/17 04:10 Specimen Source Arterial 02/25/17 08:30 Sample Site RB 02/25/17 08:30 pH 7.49 (7.35-7.45) H 02/25/17 08:30 pCO2 32.0 mmHg (35.0-45.0) L 02/25/17 08:30 pO2 62.0 mmHg (80.0-100.0) L 02/25/17 08:30 HCO3 26.1 mEq/L (20.0-26.0) H 02/25/17 08:30 Base Excess 1.6 mEq/L (-3.0-3.0) 02/25/17 08:30 O2 Saturation 93.0 % (92.0-100.0) 02/25/17 08:30 Florin Test NA 02/25/17 08:30 Vent Rate NA 02/25/17 08:30 Inspired O2 32 02/25/17 08:30 Tidal Volume NA 02/25/17 08:30 PEEP NA 02/25/17 08:30 Pressure (ins/psv/peep) NA 02/25/17 08:30 Critical Value SH 02/25/17 08:30 Sodium 135 mEq/L (136-145) L 03/04/17 06:08 Potassium 3.3 mEq/L (3.5-5.1) L 03/04/17 06:08 Chloride 102 mEq/L (98-107) 03/04/17 06:08 Carbon Dioxide 24.5 mEq/L (21.0-31.0) 03/04/17 06:08 Anion Gap 11.8 (7.0-16.0) 03/04/17 06:08 BUN 5 mg/dL (7-25) L 03/04/17 06:08 Creatinine 1.0 mg/dL (0.7-1.3) 03/04/17 06:08 Est GFR ( Amer) > 60.0 ml/min (>90) 03/04/17 06:08 Est GFR (Non-Af Amer) > 60.0 ml/min 03/04/17 06:08 BUN/Creatinine Ratio 5.0 03/04/17 06:08 Glucose 115 mg/dL (70-105) H 03/04/17 06:08 POC Glucose 116 MG/DL (70 - 105) H 03/04/17 08:06 Hemoglobin A1c % 6.1 % (4.0-6.0) H 02/25/17 05:03 Whole Bld Lactic Acid 1.30 mmol/L (0.60-1.99) 02/25/17 13:15 Calcium 8.6 mg/dL (8.6-10.3) 03/04/17 06:08 Magnesium 1.9 mg/dL (1.9-2.7) 03/04/17 06:08 Total Bilirubin 0.9 mg/dL (0.3-1.0) 03/03/17 04:18 Direct Bilirubin 1.38 mg/dL (0.0-0.2) H 03/01/17 04:21 AST 31 U/L (13-39) 03/03/17 04:18 ALT 19 U/L (7-52) 03/03/17 04:18 Alkaline Phosphatase 123 U/L (34-104) H 03/03/17 04:18 Ammonia 43 umol/L (16-53) 02/26/17 04:10 B-Natriuretic Peptide 47.5 pg/mL (5.0-100.0) 03/04/17 06:08 Total Protein 6.0 gm/dL (6.0-8.3) 03/03/17 04:18 Albumin 2.8 gm/dL (4.2-5.5) L 03/03/17 04:18 Globulin 3.2 gm/dL 03/03/17 04:18 Albumin/Globulin Ratio 0.9 (1.0-1.8) L 03/03/17 04:18 Lipase 37 U/L (11-82) 02/27/17 06:30 Tumor Marker AFP 1.5 ng/mL (0.0-8.3) 02/26/17 04:10 Urine Source RANDOM 02/24/17 22:50 Urine Color BROWN 02/24/17 22:50 Urine Clarity CLOUDY (CLEAR) 02/24/17 22:50 Urine pH 5.0 (4.6 - 8.0) 02/24/17 22:50 Ur Specific [place] >= 1.030 (1.005-1.030) 02/24/17 22:50 Urine Protein 100 mg/dL (NEGATIVE) H 02/24/17 22:50 Urine Glucose (UA) NEGATIVE mg/dL (NEGATIVE) 02/24/17 22:50 Urine Ketones TRACE mg/dL (NEGATIVE) 02/24/17 22:50 Urine Blood LARGE (NEGATIVE) H 02/24/17 22:50 Urine Nitrate NEGATIVE (NEGATIVE) 02/24/17 22:50 Urine Bilirubin MODERATE (NEGATIVE) H 02/24/17 22:50 Urine Urobilinogen 1.0 E.U./dL (0.2 - 1.0) 02/24/17 22:50 Ur Leukocyte Esterase TRACE (NEGATIVE) H 02/24/17 22:50 Urine RBC 25-50 /hpf (0-5) H 02/24/17 22:50 Urine WBC 6-10 /hpf (0-5) H 02/24/17 22:50 Ur Epithelial Cells FEW /lpf (FEW) 02/24/17 22:50 Urine Bacteria FEW /hpf (NONE SEEN) 02/24/17 22:50 Gentamicin 0.2 ug/mL (0.5-10.0) L 03/01/17 04:21 Gentamicin Peak 11.3 ug/ml (4.0-8.0) H 02/26/17 14:05 Gentamicin Trough 3.8 ug/ml (0.2-2.0) H 02/26/17 10:30 Helicobacter pylori Ab NEGATIVE (NEGATIVE) 02/26/17 11:45 Hepatitis A IgM Ab Negative (Negative) 02/26/17 04:10 Hep Bs Antigen Negative (Negative) 02/26/17 04:10 Hep B Core IgM Ab Negative (Negative) 02/26/17 04:10 Hepatitis C Antibody 0.1 s/co ratio (0.0-0.9) 02/26/17 04:10 Blood Type A POSITIVE 02/26/17 04:10 Antibody Screen NEGATIVE 02/26/17 04:10 - Physical Exam Vitals and I&O: Vital Signs Temp 97.6 F 03/04/17 04:00 Pulse 91 03/04/17 07:49 Resp 18 03/04/17 07:49 BP 127/81 03/04/17 04:00 Pulse Ox 99 03/04/17 07:49 Intake & Output 03/03/17 03/04/17 03/04/17 18:59 06:59 18:59 Intake Total 2392.918 1241 Output Total 1120 700 Balance -10.667 554 Weight (lbs) 79.832 kg 80.739 kg Intake: Intake, IV Amount 654.575 0849 Ampicillin Sodium/ 50 100 Sulbactam 3 gm In Sodium Chloride 0.9% 50 ml @ 100 mls/hr IV Q6HR [facility] Rx#: [id number] D5-0.45NS 1,000 ml @ 80 378.538 7392 mls/hr IV .[id number] [facility] Rx #:[id number] Gentamicin 160 mg In 104 Sodium Chloride 0.9% 100 ml @ 100 mls/hr IV Q24HR@ 1400 [facility] Rx#:[id number] Oral 50 Other 120 Output: Urine 1120 700 Stool 0 Other: # Bowel Movements 2 Active Medications: Current Medications Albuterol/Ipratropium (Duoneb Neb) 3 ml HHN Q6HRT [facility] Stop: 04/26/17 12:59 Last Admin: 03/04/17 07:44 Dose: 3 ml Diphenhydramine HCl (Benadryl 50 Mg/Ml) 25 mg IM Q6HR PRN PRN Reason: Agitation Stop: 04/28/17 17:39 Last Admin: 03/02/17 06:43 Dose: 25 mg Enoxaparin Sodium (Lovenox) 30 mg SUBQ Q12HR [facility] Stop: 04/26/17 20:59 Last Admin: 03/04/17 08:57 Dose: 30 mg Haloperidol Lactate (Haldol) 3 mg IM Q6HR PRN PRN Reason: Agitation Stop: 05/01/17 10:27 Last Admin: 03/03/17 22:43 Dose: 3 mg Ampicillin Sodium/Sulbactam (Sodium 3 gm/ Sodium Chloride) 50 mls @ 100 mls/hr IV Q6HR [facility] Stop: 04/29/17 11:59 Last Admin: 03/04/17 06:29 Dose: 100 mls/hr Dextrose/Sodium Chloride (D5-0.45ns) 1,000 mls @ 80 mls/hr IV .[id number] [facility] Stop: 04/26/17 00:40 Last Admin: 03/04/17 06:28 Dose: 80 mls/hr Gentamicin Sulfate 160 mg/ (Sodium Chloride) 104 mls @ 100 mls/hr IV Q24HR@ 1400 [facility] Stop: 05/01/17 13:59 Last Infusion: 03/03/17 19:34 Dose: Infused Insulin Aspart (Novolog) 0 units SUBQ ACHS [facility] PRN Reason: Protocol Stop: 04/26/17 05:59 Last Admin: 03/04/17 08:37 Dose: Not Given Lactobacillus Rhamnosus (Culturelle) 1 each PO DAILY [facility] Stop: 04/27/17 16:59 Last Admin: 03/04/17 08:58 Dose: 1 each Lorazepam (Ativan) 1 mg IM Q6HR PRN; Protocol PRN Reason: Agitation Stop: 04/28/17 17:38 Last Admin: 03/03/17 15:40 Dose: 1 mg Metoclopramide HCl (Reglan) 10 mg IVP Q6HR [facility] Stop: 05/02/17 17:59 Last Admin: 03/04/17 06:29 Dose: 10 mg Mineral Oil (Mineral Oil 30 Ml) 30 ml PO BID [facility] Stop: 05/01/17 16:59 Last Admin: 03/04/17 08:58 Dose: 30 ml Mineral Oil (Fleet Mineral Oil) 135 ml RC DAILY PRN PRN Reason: Constipation Stop: 05/03/17 09:49 Miscellaneous (Gentamicin Iv Per Pharmacy) 1 ea MC PRN [facility] Stop: 04/25/17 22:29 Miscellaneous (Probiotic Screen) 1 ea MC PRN PRN PRN Reason: PROTOCOL Stop: 04/27/17 16:53 Morphine Sulfate (Morphine) 2 mg IVP Q4HR PRN PRN Reason: Pain (Moderate) Stop: 04/29/17 21:24 Last Admin: 03/02/17 23:17 Dose: 2 mg Nicotine (Nicotine Transdermal System) 14 mg TD DAILY [facility] Stop: 05/02/17 16:11 Last Admin: 03/04/17 08:58 Dose: 14 mg Ondansetron HCl (Zofran) 4 mg IV Q6H PRN PRN Reason: Nausea / Vomiting Stop: 04/26/17 06:18 Last Admin: 02/27/17 08:44 Dose: 4 mg Pantoprazole Sodium (Protonix) 40 mg IVP Q12H [facility] Stop: 04/26/17 08:59 Last Admin: 03/03/17 21:10 Dose: 40 mg Quetiapine Fumarate (Seroquel) 25 mg PO BID [facility] PRN Reason: Protocol Stop: 05/01/17 09:29 Last Admin: 03/04/17 08:58 Dose: 25 mg Quetiapine Fumarate (Seroquel) 75 mg PO HS [facility] PRN Reason: Protocol Stop: 05/03/17 07:20 General: weak, other (confused) HEENT: NC/AT, PERRLA Neck: Supple Lungs: ronchi Cardiovascular: RRR, Normal S1, Normal S2 Abdomen: soft, non-tender, non-distended, positive bowel sound Extremities: excoriation Neurological: other (confused) - Procedures Procedures: Procedures Procedure Code Date APPENDECTOMY 57845 02/24/17 EXCISION OF BOWEL POUCH 33307 02/24/17 EXCISION OF SMALL INTESTINE, OPEN APPROACH [id number] 02/24/17 REMOVAL OF GALLBLADDER 81094 02/24/17 RESECTION OF APPENDIX, OPEN APPROACH [id number] 02/24/17 RESECTION OF GALLBLADDER, OPEN APPROACH [id number] 02/24/17 RESPIRATORY VENTILATION, LESS THAN 24 CONSECUTIVE HOURS [id number] 02/24/17 VENT MGMT INPAT INIT DAY 20664 02/24/17 Internal Medicine Assmt/Plan - Assessment Assessment: diarrhea SMALL BOWEL OBSTRUCTION ACUTE CHOLELITHIASIS sp sx COPD ACUTE RESPIRATORY FAILURE-S/P SELF EXTUBATION-CURRENTLY STABLY DM-2 PSYCHOSIS LACTIC ACIDOSIS - Plan Plan: - Plan Plan: inhalation treatments continue with iv antibiotics am labs monitor glucose supplemental oxygen continue current plan of care Nutritional Asmnt/Malnutr-PDOC - Dietary Evaluation Malnutrition Findings (Please click <Entered> for more info): Nutritional Asmnt/Malnutrition Start: 03/01/17 11: 48 Text: Status: Complete Freq: Document 03/01/17 11:48 MONROE (Rec: 03/01/17 12:00 MONROE SIMONS -[id number]) Nutritional Asmnt/Malnutrition Patient General Information Nutritional Screening High Risk Screening Diagnosis Septicemia Pertinent Medical Hx/Surgical Hx COPD, alcoholism, s/p extubation or respiratory failure, DJD, psychotic disorder, CVA per MD notes Pt is POD 1 s/p open cholecystectomy, resection of Meckel's diverticulum, appendectomy Subjective Information Pt seen resting in bed, +O2 mask. Pt appeared over- nourished for ht, c/w anthropometrics and verified by pt. Per RN, pt extubated himself, and new MD orders for swallow eval prior to starting clear liquid diet. Pt reported feelings of hunger. Pt denied any supplement use. Per EMR, bowel sounds hypoactive; abd is firm and distended. Output (gastric drainage): 3024/1975 (+1049 ml ) per 12 hours. Pt is not yet meeting optimal nutritional needs. Pt is not appropriate for nutrition education. Current Diet Order/ Nutrition Support Clear liquid Patient / S.O Can Pertinent Medications D5%/NaCl IV at 120 ml/hr (490 kcal/day), zofran, protonix Pertinent Labs Na 133 L, K 3.3 L, BG 118 H, POC BG 106 H, ALB 2.7 L, Tbili 2 H, WBC 10.5 WNL, Plt Count 407 H, Mg 1.5 L Nutritional Hx/Data Height 1.8 m Height (Calculated Centimeters) 180.3 Current Weight (lbs) 83.461 kg Weight (Calculated Kilograms) 83.5 Weight (Calculated Grams) 87164.0 Usual body Weight (lbs) 183 % Usual Body Weight 101 [place] Body Weight 172 lb, 78 kg % [place] Body Weight 108 Recent Weight Change No Weight Status Overweight GI Symptoms GI Symptoms None Difficult in: Swallowing Food Allergies No Usual diet at home Pt denied any dietary restrictions Skin Integrity/Comment: Skin intact; reddened areas noted to sacrum, L heel, nicole area Current %PO Negligible < 25% Estimated Nutritional Goals BEE in Kcals: Using Current wt Calories/Kcals/Kg 30-35 kcal/kg CBW for sepsis Kcals Calculated 4959-9260 kcal/day Protein: Using Current wt Protein g/k.5-2 gm/kg CBW for sepsis Protein Calculated 126-168 gm/day Fluid: ml 2.5-3 L/day (1 ml/kcal/day for maintenance) Nutritional Problem 2. Problem Problem Possible swallowing difficulty Etiology related to recent Sx requiring intubation Signs/Symptoms: as evidenced by recent self- extubation and plans for swallow eval. 1. Problem Problem Increased nutritional needs Etiology related to metabolic demands Signs/Symptoms: as evidenced by estimated nutritional requirements for MD Dx of septicemia. Malnutrition Alert Is there a minimum of two criteria No selected? Query Text:Check all the applicable criteria. A minimum of two criteria are recommended for diagnosis of either severe or non-severe malnutrition. Malnutrition Related to Morbid Obesity Malnutrition related to morbid obesity No Intervention/Recommendation Comments * Consider advance diet if/ when medically appropriate ( clear liquid diet) * Consider ST swallow eval recommendations Expected Outcomes/Goals Expected Outcomes/Goals - Monitor provision and advancement of PO diet w/ goal of pt meeting at least 50% of estimated nutritional needs, labs trending WNL, normal GI function, and skin integrity/ wt maintenance within 2-3 days
--- NOTE | 2017-03-04 12:27 | Progress Notes ---
DATE: 03/04/2017 SUBJECTIVE: The patient seen, chart reviewed, discussed with staff. This is a 67-year-old male who I have been following now for some time. Staff noting he is somewhat better, a little bit calmer, but still needs a lot of redirection, still with behaviors, still on mittens, still with psychosis, calling out peoples' names, having conversations with people who are not there. AO to name only, does not know where he is or what is going, or the year or the month or the day of the week. MEDICATIONS: Reviewed. MENTAL STATUS EXAMINATION: Stated age, calm. Mood "okay." Disoriented. No SI, no HI. Seems to be mumbling to himself. PROVISIONAL DIAGNOSES: Psychosis, unspecified; protracted delirium. RECOMMENDATIONS AND PLAN: Given ongoing symptoms, the patient still requires interventions. From a psych standpoint he is currently on Haldol p.r.n. and also Seroquel 25 mg b.i.d. and 50 at bedtime. We will increase nighttime dose of Seroquel to 75 mg. We will monitor and follow up. [facility]# [id number]
[2017-03-04] MEDS ORDERED: Amino Acids 3% / Electrolytes 1,000 ML IV SCH (16:00)
[2017-03-04] MEDS: Gentamicin 160 MG in Sodium Chloride 0.9% 100 ML IV SCH (17:10)
[2017-03-04] MEDS ORDERED: Metoclopramide 5 mg/mL 2mL Vial ONE (17:25)
[2017-03-05] MEDS: Haloperidol Lactate 5 mg/mL 1mL Vial IM PRN (00:09)
[2017-03-05] MEDS: Albuterol/Ipratropium Neb 3 ML AERS HHN SCH ×4 (01:51→18:53)
[2017-03-05] MEDS: Metoclopramide 5 mg/mL 2mL Vial IVP SCH ×4 (01:56→18:24)
[2017-03-05] MEDS: D5-0.45NS 1,000 ML IV SCH ×2 (06:13→22:14)
[2017-03-05] MEDS: AMPICILLIN SODIUM IV SCH ×4 (06:13→17:59)
[2017-03-05] MEDS: SODIUM CHLORIDE 0.9% IV SCH ×4 (06:13→17:59)
[2017-03-05] MEDS: SULBACTAM IV SCH ×4 (06:13→17:59)
[2017-03-05 06:18] LABS: % BASOPHILS 0.5 % (0.0-2.0); % EOSINOPHILS 11.3 % (0.0-5.0); % LYMPHOCYTES 27.6 % (20.0-50.0); % MONOCYTES 6.9 % (2.0-10.0); % NEUTROPHILS 53.7 % (40.0-80.0); HEMATOCRIT 40.6 % (41.0-60); HEMOGLOBIN 13.2 gm/dL (12-16); MEAN CELL VOLUME 91.5 fl (80-99); MEAN CORPUSCULAR HEMOGLOBIN 29.9 pg (27.0-31.0); MEAN CORPUSCULAR HGB CONC 32.6 pg (28.0-36.0); MEAN PLATELET VOLUME 7.5 fl; NEUTROPHILE ABSOLUTE 4.1 Th/cmm (1.8-8.0); PLATELET COUNT 597 Th/cmm (150-400); RED BLOOD COUNT 4.43 Mil/cmm (3.80-5.80); RED CELL DISTRIBUTION WIDTH 13.4 % (11.5-20.0); WHITE BLOOD COUNT 7.6 Th/cmm (4.8-10.8)
[2017-03-05 06:35] LABS: ALB/GLOB RATIO 0.9 (1.0-1.8); ALKALINE PHOSPHATASE 107 U/L (34-104); ANION GAP 11.3 (7.0-16.0); BILIRUBIN,TOTAL 0.6 mg/dL (0.3-1.0); BUN - UREA NITROGEN 5 mg/dL (7-25); CALCIUM SERUM 8.7 mg/dL (8.6-10.3); CARBON DIOXIDE 23.3 mEq/L (21.0-31.0); CHLORIDE 104 mEq/L (98-107); GLUCOSE 108 mg/dL (70-105); MAGNESIUM 1.8 mg/dL (1.9-2.7); POTASSIUM SERUM 3.6 mEq/L (3.5-5.1); SGOT 22 U/L (13-39); SGPT/ALT 16 U/L (7-52); SODIUM SERUM 135 mEq/L (136-145)
[2017-03-05] MEDS: INSULIN ASPART, RECOMBINANT 100 UNITS/ML SUBQ SCH ×4 (06:52→21:00)
--- NOTE | 2017-03-05 06:57 | Consultation ---
DATE OF CONSULTATION: 03/03/2017 HISTORY OF PRESENT ILLNESS: The patient was seen, chart reviewed, discussed with staff. This 67-year-old male remains confused, disoriented, AO to name only, does not know where he is. He does not know what is going on. He is somewhat calmer, but still requiring some p.r.n. medications per staff, still highly disoriented, status post surgical procedure. MENTAL STATUS EXAMINATION: Stated age, confused, rambling, disorganized, disoriented. No overt SI or HI, some restlessness. PROVISIONAL DIAGNOSIS: Psychosis, unspecified; delirium ongoing. PLAN: We will continue to monitor. Continue p.r.n. medications. Continue to orient. JOB# [id number]
--- NOTE | 2017-03-05 07:14 | Diagnostic Imaging Report ---
Exam: Chest x-ray HISTORY: Placement NG tube. Findings: Frontal examination of the chest demonstrates NG tube with tip in stomach.
--- NOTE | 2017-03-05 08:47 | General Progress Note ---
Subjective - Review of Systems Service Date: 03/05/17 Events since last encounter: labs ok NGT drainage significant abdomen less distended, denies pain occasional peristalsis, on Reglan for ileus Objective - Results Result Diagrams: 03/05/17 06:05 03/05/17 06:05 Recent Labs: Laboratory Last Values WBC 7.6 Th/cmm (4.8-10.8) D 03/05/17 06:05 RBC 4.43 Mil/cmm (3.80-5.80) 03/05/17 06:05 Hgb 13.2 gm/dL (12-16) 03/05/17 06:05 Hct 40.6 % (41.0-60) L 03/05/17 06:05 MCV 91.5 fl (80-99) 03/05/17 06:05 MCH 29.9 pg (27.0-31.0) 03/05/17 06:05 MCHC Differential 32.6 pg (28.0-36.0) 03/05/17 06:05 RDW 13.4 % (11.5-20.0) 03/05/17 06:05 Plt Count 597 Th/cmm (150-400) H 03/05/17 06:05 MPV 7.5 fl 03/05/17 06:05 Neutrophils % 53.7 % (40.0-80.0) 03/05/17 06:05 Band Neutrophils % 13 % (0-10) H 02/25/17 05:03 Lymphocytes % 27.6 % (20.0-50.0) 03/05/17 06:05 Monocytes % 6.9 % (2.0-10.0) 03/05/17 06:05 Eosinophils % 11.3 % (0.0-5.0) H 03/05/17 06:05 Basophils % 0.5 % (0.0-2.0) 03/05/17 06:05 Neutrophils (Manual) 77 % (40-80) 02/25/17 05:03 Lymphocytes 5 % (20-50) L 02/25/17 05:03 Monocytes 5 % (2-10) 02/25/17 05:03 Platelet Estimate ADEQUATE (NORMAL) 02/24/17 23:15 PT 12.4 SECONDS (9.5-11.5) H 02/26/17 04:10 INR 1.18 (0.5-1.4) 02/26/17 04:10 PTT (Actin FS) 35.9 SECONDS (26.0-38.0) 02/26/17 04:10 Specimen Source Arterial 02/25/17 08:30 Sample Site RB 02/25/17 08:30 pH 7.49 (7.35-7.45) H 02/25/17 08:30 pCO2 32.0 mmHg (35.0-45.0) L 02/25/17 08:30 pO2 62.0 mmHg (80.0-100.0) L 02/25/17 08:30 HCO3 26.1 mEq/L (20.0-26.0) H 02/25/17 08:30 Base Excess 1.6 mEq/L (-3.0-3.0) 02/25/17 08:30 O2 Saturation 93.0 % (92.0-100.0) 02/25/17 08:30 Florin Test NA 02/25/17 08:30 Vent Rate NA 02/25/17 08:30 Inspired O2 32 02/25/17 08:30 Tidal Volume NA 02/25/17 08:30 PEEP NA 02/25/17 08:30 Pressure (ins/psv/peep) NA 02/25/17 08:30 Critical Value SH 02/25/17 08:30 Sodium 135 mEq/L (136-145) L 03/05/17 06:05 Potassium 3.6 mEq/L (3.5-5.1) 03/05/17 06:05 Chloride 104 mEq/L (98-107) 03/05/17 06:05 Carbon Dioxide 23.3 mEq/L (21.0-31.0) 03/05/17 06:05 Anion Gap 11.3 (7.0-16.0) 03/05/17 06:05 BUN 5 mg/dL (7-25) L 03/05/17 06:05 Creatinine 1.0 mg/dL (0.7-1.3) 03/05/17 06:05 Est GFR ( Amer) > 60.0 ml/min (>90) 03/05/17 06:05 Est GFR (Non-Af Amer) > 60.0 ml/min 03/05/17 06:05 BUN/Creatinine Ratio 5.0 03/05/17 06:05 Glucose 108 mg/dL (70-105) H 03/05/17 06:05 POC Glucose 126 MG/DL (70 - 105) H 03/04/17 21:33 Hemoglobin A1c % 6.1 % (4.0-6.0) H 02/25/17 05:03 Whole Bld Lactic Acid 1.30 mmol/L (0.60-1.99) 02/25/17 13:15 Calcium 8.7 mg/dL (8.6-10.3) 03/05/17 06:05 Phosphorus 3.0 mg/dL (2.5-5.0) 03/05/17 06:05 Magnesium 1.8 mg/dL (1.9-2.7) L 03/05/17 06:05 Total Bilirubin 0.6 mg/dL (0.3-1.0) 03/05/17 06:05 Direct Bilirubin 1.38 mg/dL (0.0-0.2) H 03/01/17 04:21 AST 22 U/L (13-39) 03/05/17 06:05 ALT 16 U/L (7-52) 03/05/17 06:05 Alkaline Phosphatase 107 U/L (34-104) H 03/05/17 06:05 Ammonia 43 umol/L (16-53) 02/26/17 04:10 B-Natriuretic Peptide 47.5 pg/mL (5.0-100.0) 03/04/17 06:08 Total Protein 6.4 gm/dL (6.0-8.3) 03/05/17 06:05 Albumin 3.0 gm/dL (4.2-5.5) L 03/05/17 06:05 Globulin 3.4 gm/dL 03/05/17 06:05 Albumin/Globulin Ratio 0.9 (1.0-1.8) L 03/05/17 06:05 Lipase 37 U/L (11-82) 02/27/17 06:30 Tumor Marker AFP 1.5 ng/mL (0.0-8.3) 02/26/17 04:10 Urine Source RANDOM 02/24/17 22:50 Urine Color BROWN 02/24/17 22:50 Urine Clarity CLOUDY (CLEAR) 02/24/17 22:50 Urine pH 5.0 (4.6 - 8.0) 02/24/17 22:50 Ur Specific [place] >= 1.030 (1.005-1.030) 02/24/17 22:50 Urine Protein 100 mg/dL (NEGATIVE) H 02/24/17 22:50 Urine Glucose (UA) NEGATIVE mg/dL (NEGATIVE) 02/24/17 22:50 Urine Ketones TRACE mg/dL (NEGATIVE) 02/24/17 22:50 Urine Blood LARGE (NEGATIVE) H 02/24/17 22:50 Urine Nitrate NEGATIVE (NEGATIVE) 02/24/17 22:50 Urine Bilirubin MODERATE (NEGATIVE) H 02/24/17 22:50 Urine Urobilinogen 1.0 E.U./dL (0.2 - 1.0) 02/24/17 22:50 Ur Leukocyte Esterase TRACE (NEGATIVE) H 02/24/17 22:50 Urine RBC 25-50 /hpf (0-5) H 02/24/17 22:50 Urine WBC 6-10 /hpf (0-5) H 02/24/17 22:50 Ur Epithelial Cells FEW /lpf (FEW) 02/24/17 22:50 Urine Bacteria FEW /hpf (NONE SEEN) 02/24/17 22:50 Gentamicin 0.2 ug/mL (0.5-10.0) L 03/01/17 04:21 Gentamicin Peak 11.3 ug/ml (4.0-8.0) H 02/26/17 14:05 Gentamicin Trough 3.8 ug/ml (0.2-2.0) H 02/26/17 10:30 Helicobacter pylori Ab NEGATIVE (NEGATIVE) 02/26/17 11:45 Hepatitis A IgM Ab Negative (Negative) 02/26/17 04:10 Hep Bs Antigen Negative (Negative) 02/26/17 04:10 Hep B Core IgM Ab Negative (Negative) 02/26/17 04:10 Hepatitis C Antibody 0.1 s/co ratio (0.0-0.9) 02/26/17 04:10 Blood Type A POSITIVE 02/26/17 04:10 Antibody Screen NEGATIVE 02/26/17 04:10 - Physical Exam Vitals and I&O: Vital Signs Temp 98.7 F 03/05/17 04:00 Pulse 75 03/05/17 04:00 Resp 18 10/23/17 04:00 BP 103/60 03/05/17 04:00 Pulse Ox 100 03/05/17 04:00 Intake & Output 03/04/17 03/05/17 03/05/17 18:59 06:59 18:59 Intake Total 300 700 Output Total 250 100 Balance 50 600 Weight (lbs) 80.739 kg 80.739 kg Intake: Intake, IV Amount 100 50 Ampicillin Sodium/ 100 50 Sulbactam 3 gm In Sodium Chloride 0.9% 50 ml @ 100 mls/hr IV Q6HR [facility] Rx#: [id number] Oral 200 TPN/PPN 650 Output: Gastric Drainage 100 Urine 250 Other: # Voids 3 # Bowel Movements 4 3 Active Medications: Current Medications Albuterol/Ipratropium (Duoneb Neb) 3 ml HHN Q6HRT [facility] Stop: 04/26/17 12:59 Last Admin: 03/05/17 06:26 Dose: 3 ml Diphenhydramine HCl (Benadryl 50 Mg/Ml) 25 mg IM Q6HR PRN PRN Reason: Agitation Stop: 04/28/17 17:39 Last Admin: 03/05/17 00:08 Dose: 25 mg Enoxaparin Sodium (Lovenox) 30 mg SUBQ Q12HR [facility] Stop: 04/26/17 20:59 Last Admin: 03/04/17 21:27 Dose: 30 mg Haloperidol Lactate (Haldol) 3 mg IM Q6HR PRN PRN Reason: Agitation Stop: 05/01/17 10:27 Last Admin: 03/05/17 00:09 Dose: 3 mg Ampicillin Sodium/Sulbactam (Sodium 3 gm/ Sodium Chloride) 50 mls @ 100 mls/hr IV Q6HR [facility] Stop: 04/29/17 11:59 Last Admin: 03/05/17 06:13 Dose: 100 mls/hr Dextrose/Sodium Chloride (D5-0.45ns) 1,000 mls @ 80 mls/hr IV .[id number] [facility] Stop: 04/26/17 00:40 Last Admin: 03/05/17 06:13 Dose: Not Given Gentamicin Sulfate 160 mg/ (Sodium Chloride) 104 mls @ 100 mls/hr IV Q24HR@ 1400 [facility] Stop: 05/01/17 13:59 Last Admin: 03/04/17 17:10 Dose: 100 mls/hr Amino Acids/Electrolytes (Procalamine) 1,000 mls @ 50 mls/hr IV .Q20H [facility] Stop: 05/03/17 15:59 Last Admin: 03/04/17 18:11 Dose: 50 mls/hr Insulin Aspart (Novolog) 0 units SUBQ ACHS [facility] PRN Reason: Protocol Stop: 04/26/17 05:59 Last Admin: 03/05/17 06:52 Dose: Not Given Lactobacillus Rhamnosus (Culturelle) 1 each PO DAILY [facility] Stop: 04/27/17 16:59 Last Admin: 03/04/17 08:58 Dose: 1 each Lorazepam (Ativan) 1 mg IM Q6HR PRN; Protocol PRN Reason: Agitation Stop: 04/28/17 17:38 Last Admin: 03/05/17 00:08 Dose: 1 mg Metoclopramide HCl (Reglan) 10 mg IVP Q6HR [facility] Stop: 05/02/17 17:59 Last Admin: 03/05/17 06:14 Dose: Not Given Mineral Oil (Mineral Oil 30 Ml) 30 ml PO BID [facility] Stop: 05/01/17 16:59 Last Admin: 03/04/17 17:29 Dose: 30 ml Mineral Oil (Fleet Mineral Oil) 135 ml RC DAILY PRN PRN Reason: Constipation Stop: 05/03/17 09:49 Miscellaneous (Gentamicin Iv Per Pharmacy) 1 ea MC PRN [facility] Stop: 04/25/17 22:29 Miscellaneous (Probiotic Screen) 1 ea MC PRN PRN PRN Reason: PROTOCOL Stop: 04/27/17 16:53 Miscellaneous (Ppn Per Pharmacy) 1 ea MC PRN PRN PRN Reason: PROTOCOL Stop: 05/03/17 11:34 Morphine Sulfate (Morphine) 2 mg IVP Q4HR PRN PRN Reason: Pain (Moderate) Stop: 04/29/17 21:24 Last Admin: 03/02/17 23:17 Dose: 2 mg Nicotine (Nicotine Transdermal System) 14 mg TD DAILY [facility] Stop: 05/02/17 16:11 Last Admin: 03/04/17 08:58 Dose: 14 mg Ondansetron HCl (Zofran) 4 mg IV Q6H PRN PRN Reason: Nausea / Vomiting Stop: 04/26/17 06:18 Last Admin: 02/27/17 08:44 Dose: 4 mg Pantoprazole Sodium (Protonix) 40 mg IVP Q12H [facility] Stop: 04/26/17 08:59 Last Admin: 03/04/17 21:28 Dose: 40 mg Quetiapine Fumarate (Seroquel) 25 mg PO BID [facility] PRN Reason: Protocol Stop: 05/01/17 09:29 Last Admin: 03/04/17 17:14 Dose: 25 mg Quetiapine Fumarate (Seroquel) 75 mg PO HS [facility] PRN Reason: Protocol Stop: 05/03/17 07:20 Last Admin: 03/04/17 21:26 Dose: 75 mg General: Alert, Oriented x3 Abdomen: Soft, Tender, Distended, Other (no guard or rebound, + distension) - Procedures Procedures: Procedures Procedure Code Date APPENDECTOMY 89684 02/24/17 EXCISION OF BOWEL POUCH 56868 02/24/17 EXCISION OF SMALL INTESTINE, OPEN APPROACH [id number] 02/24/17 REMOVAL OF GALLBLADDER 46330 02/24/17 RESECTION OF APPENDIX, OPEN APPROACH [id number] 02/24/17 RESECTION OF GALLBLADDER, OPEN APPROACH [id number] 02/24/17 RESPIRATORY VENTILATION, LESS THAN 24 CONSECUTIVE HOURS [id number] 02/24/17 VENT MGMT INPAT INIT DAY 47623 02/24/17 Nutritional Asmnt/Malnutr-PDOC - Dietary Evaluation Malnutrition Findings (Please click <Entered> for more info): Nutritional Asmnt/Malnutrition Start: 03/01/17 11: 48 Text: Status: Complete Freq: Document 03/01/17 11:48 MONROE (Rec: 03/01/17 12:00 MONROE KRISTYN [id number]) Nutritional Asmnt/Malnutrition Patient General Information Nutritional Screening High Risk Screening Diagnosis Septicemia Pertinent Medical Hx/Surgical Hx COPD, alcoholism, s/p extubation or respiratory failure, DJD, psychotic disorder, CVA per MD notes Pt is POD 1 s/p open cholecystectomy, resection of Meckel's diverticulum, appendectomy Subjective Information Pt seen resting in bed, +O2 mask. Pt appeared over- nourished for ht, c/w anthropometrics and verified by pt. Per RN, pt extubated himself, and new MD orders for swallow eval prior to starting clear liquid diet. Pt reported feelings of hunger. Pt denied any supplement use. Per EMR, bowel sounds hypoactive; abd is firm and distended. Output (gastric drainage): 3024/1975 (+1049 ml ) per 12 hours. Pt is not yet meeting optimal nutritional needs. Pt is not appropriate for nutrition education. Current Diet Order/ Nutrition Support Clear liquid Patient / S.O Can Pertinent Medications D5%/NaCl IV at 120 ml/hr (490 kcal/day), zofran, protonix Pertinent Labs Na 133 L, K 3.3 L, BG 118 H, POC BG 106 H, ALB 2.7 L, Tbili 2 H, WBC 10.5 WNL, Plt Count 407 H, Mg 1.5 L Nutritional Hx/Data Height 1.8 m Height (Calculated Centimeters) 180.3 Current Weight (lbs) 83.461 kg Weight (Calculated Kilograms) 83.5 Weight (Calculated Grams) 07328.0 Usual body Weight (lbs) 183 % Usual Body Weight 101 [place] Body Weight 172 lb, 78 kg % [place] Body Weight 108 Recent Weight Change No Weight Status Overweight GI Symptoms GI Symptoms None Difficult in: Swallowing Food Allergies No Usual diet at home Pt denied any dietary restrictions Skin Integrity/Comment: Skin intact; reddened areas noted to sacrum, L heel, nicole area Current %PO Negligible < 25% Estimated Nutritional Goals BEE in Kcals: Using Current wt Calories/Kcals/Kg 30-35 kcal/kg CBW for sepsis Kcals Calculated 8332-1542 kcal/day Protein: Using Current wt Protein g/k.5-2 gm/kg CBW for sepsis Protein Calculated 126-168 gm/day Fluid: ml 2.5-3 L/day (1 ml/kcal/day for maintenance) Nutritional Problem 2. Problem Problem Possible swallowing difficulty Etiology related to recent Sx requiring intubation Signs/Symptoms: as evidenced by recent self- extubation and plans for swallow eval. 1. Problem Problem Increased nutritional needs Etiology related to metabolic demands Signs/Symptoms: as evidenced by estimated nutritional requirements for MD Dx of septicemia. Malnutrition Alert Is there a minimum of two criteria No selected? Query Text:Check all the applicable criteria. A minimum of two criteria are recommended for diagnosis of either severe or non-severe malnutrition. Malnutrition Related to Morbid Obesity Malnutrition related to morbid obesity No Intervention/Recommendation Comments * Consider advance diet if/ when medically appropriate ( clear liquid diet) * Consider ST swallow eval recommendations Expected Outcomes/Goals Expected Outcomes/Goals - Monitor provision and advancement of PO diet w/ goal of pt meeting at least 50% of estimated nutritional needs, labs trending WNL, normal GI function, and skin integrity/ wt maintenance within 2-3 days
[2017-03-05] MEDS: Enoxaparin 30 mg/0.3 mL 0.3mL Syr SUBQ SCH ×2 (09:53→21:55)
[2017-03-05] MEDS: Lactobacillus Rhamnosus 10 Billion CFU Capsule PO SCH (09:53)
[2017-03-05] MEDS: Nicotine 14 mg/24 hr Tdm TD SCH (09:54)
[2017-03-05] MEDS: TPN 10%-70% CUSTOM IV SCH (14:47)
[2017-03-05] MEDS: Gentamicin 160 MG in Sodium Chloride 0.9% 100 ML IV SCH (15:31)
--- NOTE | 2017-03-05 17:09 | Consultation ---
DATE OF CONSULTATION: 03/05/2017 HISTORY OF PRESENT ILLNESS: A 67-year-old male currently in the hospital. He was quite delirious, confused, seems to be doing better. AO to name. He knows he is in the hospital. He does not exactly know why he is in the hospital. He is not quite sure about the year, but knows the month. He is able to tell me where he was born, able to tell me he is not . He is asking if he can leave soon. He is a lot more engaged, calm, and cooperative. PAST PSYCHIATRIC HISTORY: Noted. MENTAL STATUS EXAMINATION: Stated age, better grooming, better eye contact. Mood is "better." Affect constricted. Thought processes remain somewhat disoriented, but more engaged. No SI. No SI. No overt psychotic symptoms. PROVISIONAL DIAGNOSES: Delirium ongoing and psychosis, unspecified. Medical; please see full H and P. RECOMMENDATIONS AND PLAN: Improvement noted. We will monitor and follow up. [facility]# [id number]
[2017-03-06] MEDS: AMPICILLIN SODIUM IV SCH ×5 (00:23→17:34)
[2017-03-06] MEDS: SODIUM CHLORIDE 0.9% IV SCH ×5 (00:23→17:34)
[2017-03-06] MEDS: SULBACTAM IV SCH ×5 (00:23→17:34)
[2017-03-06] MEDS: Albuterol/Ipratropium Neb 3 ML AERS HHN SCH ×4 (00:28→19:33)
[2017-03-06] MEDS: D5-0.45NS 1,000 ML IV SCH (03:29)
[2017-03-06] MEDS: Metoclopramide 5 mg/mL 2mL Vial IVP SCH ×5 (03:31→17:37)
[2017-03-06 05:24] LABS: % EOSINOPHILS 8.7 % (0.0-5.0); % LYMPHOCYTES 23.5 % (20.0-50.0); % MONOCYTES 6.5 % (2.0-10.0); % NEUTROPHILS 60.3 % (40.0-80.0); MEAN CELL VOLUME 90.2 fl (80-99); MEAN CORPUSCULAR HEMOGLOBIN 29.9 pg (27.0-31.0); MEAN CORPUSCULAR HGB CONC 33.2 pg (28.0-36.0); MEAN PLATELET VOLUME 7.8 fl; NEUTROPHILE ABSOLUTE 5.1 Th/cmm (1.8-8.0); PLATELET COUNT 603 Th/cmm (150-400); RED BLOOD COUNT 4.02 Mil/cmm (3.80-5.80); RED CELL DISTRIBUTION WIDTH 13.3 % (11.5-20.0); WHITE BLOOD COUNT 8.5 Th/cmm (4.8-10.8)
[2017-03-06 05:36] LABS: ALKALINE PHOSPHATASE 94 U/L (34-104); ANION GAP 10.1 (7.0-16.0); BILIRUBIN,TOTAL 0.5 mg/dL (0.3-1.0); BUN - UREA NITROGEN 6 mg/dL (7-25); BUN/CREATININE RATIO 6.7; CALCIUM SERUM 8.4 mg/dL (8.6-10.3); CHLORIDE 104 mEq/L (98-107); CREATININE - SERUM 0.9 mg/dL (0.7-1.3); GLUCOSE 125 mg/dL (70-105); MAGNESIUM 1.6 mg/dL (1.9-2.7); PHOSPHOROUS 3.4 mg/dL (2.5-5.0); POTASSIUM SERUM 3.1 mEq/L (3.5-5.1); SGOT 20 U/L (13-39); SGPT/ALT 14 U/L (7-52); SODIUM SERUM 135 mEq/L (136-145)
[2017-03-06 05:37] LABS: HEMATOCRIT 36.3 % (41.0-60)
[2017-03-06] MEDS: INSULIN ASPART, RECOMBINANT 100 UNITS/ML SUBQ SCH ×4 (07:35→21:30)
[2017-03-06] MEDS: Enoxaparin 30 mg/0.3 mL 0.3mL Syr SUBQ SCH ×2 (08:36→21:38)
[2017-03-06] MEDS: Nicotine 14 mg/24 hr Tdm TD SCH (08:36)
[2017-03-06] MEDS: Lactobacillus Rhamnosus 10 Billion CFU Capsule PO SCH ×2 (08:37→15:38)
--- NOTE | 2017-03-06 08:41 | General Progress Note ---
Subjective - Review of Systems Service Date: 03/06/17 Events since last encounter: labs ok no BM has ileus Objective - Results Result Diagrams: 03/06/17 04:30 03/06/17 04:30 Recent Labs: Laboratory Last Values WBC 8.5 Th/cmm (4.8-10.8) 03/06/17 04:30 RBC 4.02 Mil/cmm (3.80-5.80) 03/06/17 04:30 Hgb 12.0 gm/dL (12-16) 03/06/17 04:30 Hct 36.3 % (41.0-60) L D 03/06/17 04:30 MCV 90.2 fl (80-99) 03/06/17 04:30 MCH 29.9 pg (27.0-31.0) 03/06/17 04:30 MCHC Differential 33.2 pg (28.0-36.0) 03/06/17 04:30 RDW 13.3 % (11.5-20.0) 03/06/17 04:30 Plt Count 603 Th/cmm (150-400) H 03/06/17 04:30 MPV 7.8 fl 03/06/17 04:30 Neutrophils % 60.3 % (40.0-80.0) 03/06/17 04:30 Band Neutrophils % 13 % (0-10) H 02/25/17 05:03 Lymphocytes % 23.5 % (20.0-50.0) 03/06/17 04:30 Monocytes % 6.5 % (2.0-10.0) 03/06/17 04:30 Eosinophils % 8.7 % (0.0-5.0) H 03/06/17 04:30 Basophils % 1.0 % (0.0-2.0) 03/06/17 04:30 Neutrophils (Manual) 77 % (40-80) 02/25/17 05:03 Lymphocytes 5 % (20-50) L 02/25/17 05:03 Monocytes 5 % (2-10) 02/25/17 05:03 Platelet Estimate ADEQUATE (NORMAL) 02/24/17 23:15 PT 12.4 SECONDS (9.5-11.5) H 02/26/17 04:10 INR 1.18 (0.5-1.4) 02/26/17 04:10 PTT (Actin FS) 35.9 SECONDS (26.0-38.0) 02/26/17 04:10 Specimen Source Arterial 02/25/17 08:30 Sample Site RB 02/25/17 08:30 pH 7.49 (7.35-7.45) H 02/25/17 08:30 pCO2 32.0 mmHg (35.0-45.0) L 02/25/17 08:30 pO2 62.0 mmHg (80.0-100.0) L 02/25/17 08:30 HCO3 26.1 mEq/L (20.0-26.0) H 02/25/17 08:30 Base Excess 1.6 mEq/L (-3.0-3.0) 02/25/17 08:30 O2 Saturation 93.0 % (92.0-100.0) 02/25/17 08:30 Florin Test NA 02/25/17 08:30 Vent Rate NA 02/25/17 08:30 Inspired O2 32 02/25/17 08:30 Tidal Volume NA 02/25/17 08:30 PEEP NA 02/25/17 08:30 Pressure (ins/psv/peep) NA 02/25/17 08:30 Critical Value SH 02/25/17 08:30 Sodium 135 mEq/L (136-145) L 03/06/17 04:30 Potassium 3.1 mEq/L (3.5-5.1) L 03/06/17 04:30 Chloride 104 mEq/L (98-107) 03/06/17 04:30 Carbon Dioxide 24.0 mEq/L (21.0-31.0) 03/06/17 04:30 Anion Gap 10.1 (7.0-16.0) 03/06/17 04:30 BUN 6 mg/dL (7-25) L 03/06/17 04:30 Creatinine 0.9 mg/dL (0.7-1.3) 03/06/17 04:30 Est GFR ( Amer) > 60.0 ml/min (>90) 03/06/17 04:30 Est GFR (Non-Af Amer) > 60.0 ml/min 03/06/17 04:30 BUN/Creatinine Ratio 6.7 03/06/17 04:30 Glucose 125 mg/dL (70-105) H 03/06/17 04:30 POC Glucose 125 MG/DL (70 - 105) H 03/05/17 21:03 Hemoglobin A1c % 6.1 % (4.0-6.0) H 02/25/17 05:03 Whole Bld Lactic Acid 1.30 mmol/L (0.60-1.99) 02/25/17 13:15 Calcium 8.4 mg/dL (8.6-10.3) L 03/06/17 04:30 Phosphorus 3.4 mg/dL (2.5-5.0) 03/06/17 04:30 Magnesium 1.6 mg/dL (1.9-2.7) L 03/06/17 04:30 Total Bilirubin 0.5 mg/dL (0.3-1.0) 03/06/17 04:30 Direct Bilirubin 1.38 mg/dL (0.0-0.2) H 03/01/17 04:21 AST 20 U/L (13-39) 03/06/17 04:30 ALT 14 U/L (7-52) 03/06/17 04:30 Alkaline Phosphatase 94 U/L (34-104) 03/06/17 04:30 Ammonia 43 umol/L (16-53) 02/26/17 04:10 B-Natriuretic Peptide 47.5 pg/mL (5.0-100.0) 03/04/17 06:08 Total Protein 5.9 gm/dL (6.0-8.3) L 03/06/17 04:30 Albumin 2.9 gm/dL (4.2-5.5) L 03/06/17 04:30 Globulin 3.0 gm/dL 03/06/17 04:30 Albumin/Globulin Ratio 1.0 (1.0-1.8) 03/06/17 04:30 Triglycerides 181 mg/dL (<150) H 03/05/17 06:05 Cholesterol 141 mg/dL (<200) 03/05/17 06:05 Lipase 37 U/L (11-82) 02/27/17 06:30 Tumor Marker AFP 1.5 ng/mL (0.0-8.3) 02/26/17 04:10 Urine Source RANDOM 02/24/17 22:50 Urine Color BROWN 02/24/17 22:50 Urine Clarity CLOUDY (CLEAR) 02/24/17 22:50 Urine pH 5.0 (4.6 - 8.0) 02/24/17 22:50 Ur Specific [place] >= 1.030 (1.005-1.030) 02/24/17 22:50 Urine Protein 100 mg/dL (NEGATIVE) H 02/24/17 22:50 Urine Glucose (UA) NEGATIVE mg/dL (NEGATIVE) 02/24/17 22:50 Urine Ketones TRACE mg/dL (NEGATIVE) 02/24/17 22:50 Urine Blood LARGE (NEGATIVE) H 02/24/17 22:50 Urine Nitrate NEGATIVE (NEGATIVE) 02/24/17 22:50 Urine Bilirubin MODERATE (NEGATIVE) H 02/24/17 22:50 Urine Urobilinogen 1.0 E.U./dL (0.2 - 1.0) 02/24/17 22:50 Ur Leukocyte Esterase TRACE (NEGATIVE) H 02/24/17 22:50 Urine RBC 25-50 /hpf (0-5) H 02/24/17 22:50 Urine WBC 6-10 /hpf (0-5) H 02/24/17 22:50 Ur Epithelial Cells FEW /lpf (FEW) 02/24/17 22:50 Urine Bacteria FEW /hpf (NONE SEEN) 02/24/17 22:50 Gentamicin 0.2 ug/mL (0.5-10.0) L 03/01/17 04:21 Gentamicin Peak 7.4 ug/ml (4.0-8.0) 03/05/17 17:00 Gentamicin Trough 0.8 ug/ml (0.2-2.0) 03/05/17 13:00 Helicobacter pylori Ab NEGATIVE (NEGATIVE) 02/26/17 11:45 Hepatitis A IgM Ab Negative (Negative) 02/26/17 04:10 Hep Bs Antigen Negative (Negative) 02/26/17 04:10 Hep B Core IgM Ab Negative (Negative) 02/26/17 04:10 Hepatitis C Antibody 0.1 s/co ratio (0.0-0.9) 02/26/17 04:10 Blood Type A POSITIVE 02/26/17 04:10 Antibody Screen NEGATIVE 02/26/17 04:10 - Physical Exam Vitals and I&O: Vital Signs Temp 99.4 F 03/06/17 00:00 Pulse 89 03/06/17 07:10 Resp 16 03/06/17 07:10 BP 137/70 03/06/17 00:00 Pulse Ox 94 03/06/17 07:10 Intake & Output 03/05/17 03/06/17 03/06/17 18:59 06:59 18:59 Intake Total 329.000 106.667 Balance 329.000 106.667 Weight (lbs) 80.739 kg Intake: Intake, IV Amount 329.000 106.667 Ampicillin Sodium/ 43.333 106.667 Sulbactam 3 gm In Sodium Chloride 0.9% 50 ml @ 100 mls/hr IV Q6HR [facility] Rx#: [id number] Gentamicin 160 mg In 104 Sodium Chloride 0.9% 100 ml @ 100 mls/hr IV Q24HR@ 1400 [facility] Rx#:[id number] Multivitamin Inj 10 ml In 181.667 Dextrose 70% 790 ml In Amino Acids 10% 500 ml In Intralipids 20% 100 ml @ 50 mls/hr IV .Q24H [facility] Rx#:[id number] Other: # Voids 4 # Bowel Movements 1 Active Medications: Current Medications Albuterol/Ipratropium (Duoneb Neb) 3 ml HHN Q6HRT [facility] Stop: 04/26/17 12:59 Last Admin: 03/06/17 07:09 Dose: 3 ml Diphenhydramine HCl (Benadryl 50 Mg/Ml) 25 mg IM Q6HR PRN PRN Reason: Agitation Stop: 04/28/17 17:39 Last Admin: 03/06/17 08:33 Dose: 25 mg Enoxaparin Sodium (Lovenox) 30 mg SUBQ Q12HR [facility] Stop: 04/26/17 20:59 Last Admin: 03/06/17 08:36 Dose: 30 mg Haloperidol Lactate (Haldol) 3 mg IM Q6HR PRN PRN Reason: Agitation Stop: 05/01/17 10:27 Last Admin: 03/05/17 00:09 Dose: 3 mg Ampicillin Sodium/Sulbactam (Sodium 3 gm/ Sodium Chloride) 50 mls @ 100 mls/hr IV Q6HR [facility] Stop: 04/29/17 11:59 Last Infusion: 03/06/17 06:24 Dose: Infused Gentamicin Sulfate 160 mg/ (Sodium Chloride) 104 mls @ 100 mls/hr IV Q24HR@ 1400 [facility] Stop: 05/01/17 13:59 Last Infusion: 03/05/17 18:25 Dose: Infused Multivitamins/Minerals 10 ml/Dextrose/ Amino Acids/Electrolytes/ Fat Emulsion Intravenous 1,400 mls @ 50 mls/hr IV .Q24H [facility] Stop: 05/04/17 14:59 Last Infusion: 03/05/17 18:25 Dose: 50 mls/hr Dextrose/Sodium Chloride (D5-0.45ns) 1,000 mls @ 30 mls/hr IV .Q24H [facility] Stop: 05/04/17 14:59 Last Admin: 03/06/17 03:29 Dose: 30 mls/hr Insulin Aspart (Novolog) 0 units SUBQ ACHS [facility] PRN Reason: Protocol Stop: 04/26/17 05:59 Last Admin: 03/06/17 07:35 Dose: Not Given Lactobacillus Rhamnosus (Culturelle) 1 each PO DAILY [facility] Stop: 04/27/17 16:59 Last Admin: 03/06/17 08:37 Dose: 1 each Lorazepam (Ativan) 1 mg IM Q6HR PRN; Protocol PRN Reason: Agitation Stop: 04/28/17 17:38 Last Admin: 03/06/17 08:34 Dose: 1 mg Metoclopramide HCl (Reglan) 10 mg IVP Q6HR [facility] Stop: 05/02/17 17:59 Last Admin: 03/06/17 07:33 Dose: Not Given Mineral Oil (Mineral Oil 30 Ml) 30 ml PO BID [facility] Stop: 05/01/17 16:59 Last Admin: 03/05/17 16:45 Dose: Not Given Mineral Oil (Fleet Mineral Oil) 135 ml RC DAILY PRN PRN Reason: Constipation Stop: 05/03/17 09:49 Miscellaneous (Gentamicin Iv Per Pharmacy) 1 ea MC PRN [facility] Stop: 04/25/17 22:29 Miscellaneous (Probiotic Screen) 1 ea PRN PRN PRN Reason: PROTOCOL Stop: 04/27/17 16:53 Miscellaneous (Ppn Per Pharmacy) 1 ea PRN PRN PRN Reason: PROTOCOL Stop: 05/03/17 11:34 Morphine Sulfate (Morphine) 2 mg IVP Q4HR PRN PRN Reason: Pain (Moderate) Stop: 04/29/17 21:24 Last Admin: 03/02/17 23:17 Dose: 2 mg Nicotine (Nicotine Transdermal System) 14 mg TD DAILY [facility] Stop: 05/02/17 16:11 Last Admin: 03/06/17 08:36 Dose: 14 mg Ondansetron HCl (Zofran) 4 mg IV Q6H PRN PRN Reason: Nausea / Vomiting Stop: 04/26/17 06:18 Last Admin: 02/27/17 08:44 Dose: 4 mg Pantoprazole Sodium (Protonix) 40 mg IVP Q12H [facility] Stop: 04/26/17 08:59 Last Admin: 03/06/17 08:33 Dose: 40 mg Quetiapine Fumarate (Seroquel) 25 mg PO BID [facility] PRN Reason: Protocol Stop: 05/01/17 09:29 Last Admin: 03/06/17 08:37 Dose: 25 mg Quetiapine Fumarate (Seroquel) 75 mg PO HS [facility] PRN Reason: Protocol Stop: 05/03/17 07:20 Last Admin: 03/05/17 22:13 Dose: Not Given General: Alert, Oriented x3 Abdomen: Soft, Tender, Distended, Other (no guard or rebound, + distension) - Procedures Procedures: Procedures Procedure Code Date APPENDECTOMY 08734 02/24/17 EXCISION OF BOWEL POUCH 80718 02/24/17 EXCISION OF SMALL INTESTINE, OPEN APPROACH [id number] 02/24/17 REMOVAL OF GALLBLADDER 01054 02/24/17 RESECTION OF APPENDIX, OPEN APPROACH [id number] 02/24/17 RESECTION OF GALLBLADDER, OPEN APPROACH [id number] 02/24/17 RESPIRATORY VENTILATION, LESS THAN 24 CONSECUTIVE HOURS [id number] 02/24/17 VENT MGMT INPAT INIT DAY 56677 02/24/17 Nutritional Asmnt/Malnutr-PDOC - Dietary Evaluation Malnutrition Findings (Please click <Entered> for more info): Nutritional Asmnt/Malnutrition Start: 03/01/17 11: 48 Text: Status: Complete Freq: Document 03/01/17 11:48 MONROE (Rec: 03/01/17 12:00 DENNYENAIGNACIO SIMONS -[id number]) Nutritional Asmnt/Malnutrition Patient General Information Nutritional Screening High Risk Screening Diagnosis Septicemia Pertinent Medical Hx/Surgical Hx COPD, alcoholism, s/p extubation or respiratory failure, DJD, psychotic disorder, CVA per MD notes Pt is POD 1 s/p open cholecystectomy, resection of Meckel's diverticulum, appendectomy Subjective Information Pt seen resting in bed, +O2 mask. Pt appeared over- nourished for ht, c/w anthropometrics and verified by pt. Per RN, pt extubated himself, and new MD orders for swallow eval prior to starting clear liquid diet. Pt reported feelings of hunger. Pt denied any supplement use. Per EMR, bowel sounds hypoactive; abd is firm and distended. Output (gastric drainage): 3024/1975 (+1049 ml ) per 12 hours. Pt is not yet meeting optimal nutritional needs. Pt is not appropriate for nutrition education. Current Diet Order/ Nutrition Support Clear liquid Patient / S.O Can Pertinent Medications D5%/NaCl IV at 120 ml/hr (490 kcal/day), zofran, protonix Pertinent Labs Na 133 L, K 3.3 L, BG 118 H, POC BG 106 H, ALB 2.7 L, Tbili 2 H, WBC 10.5 WNL, Plt Count 407 H, Mg 1.5 L Nutritional Hx/Data Height 1.8 m Height (Calculated Centimeters) 180.3 Current Weight (lbs) 83.461 kg Weight (Calculated Kilograms) 83.5 Weight (Calculated Grams) 20522.0 Usual body Weight (lbs) 183 % Usual Body Weight 101 [place] Body Weight 172 lb, 78 kg % [place] Body Weight 108 Recent Weight Change No Weight Status Overweight GI Symptoms GI Symptoms None Difficult in: Swallowing Food Allergies No Usual diet at home Pt denied any dietary restrictions Skin Integrity/Comment: Skin intact; reddened areas noted to sacrum, L heel, nicole area Current %PO Negligible < 25% Estimated Nutritional Goals BEE in Kcals: Using Current wt Calories/Kcals/Kg 30-35 kcal/kg CBW for sepsis Kcals Calculated 8310-2623 kcal/day Protein: Using Current wt Protein g/k.5-2 gm/kg CBW for sepsis Protein Calculated 126-168 gm/day Fluid: ml 2.5-3 L/day (1 ml/kcal/day for maintenance) Nutritional Problem 2. Problem Problem Possible swallowing difficulty Etiology related to recent Sx requiring intubation Signs/Symptoms: as evidenced by recent self- extubation and plans for swallow eval. 1. Problem Problem Increased nutritional needs Etiology related to metabolic demands Signs/Symptoms: as evidenced by estimated nutritional requirements for MD Dx of septicemia. Malnutrition Alert Is there a minimum of two criteria No selected? Query Text:Check all the applicable criteria. A minimum of two criteria are recommended for diagnosis of either severe or non-severe malnutrition. Malnutrition Related to Morbid Obesity Malnutrition related to morbid obesity No Intervention/Recommendation Comments * Consider advance diet if/ when medically appropriate ( clear liquid diet) * Consider ST swallow eval recommendations Expected Outcomes/Goals Expected Outcomes/Goals - Monitor provision and advancement of PO diet w/ goal of pt meeting at least 50% of estimated nutritional needs, labs trending WNL, normal GI function, and skin integrity/ wt maintenance within 2-3 days
[2017-03-06] MEDS: KCL 20mEq/100mL Premix 20 MEQ/100 ML PIGGYBACK IV SCH ×3 (09:51→13:05)
[2017-03-06] MEDS ORDERED: Mag Sulfate 2gm/50mL Premix 2 GM/50 ML BAG IV ONE (13:00)
--- NOTE | 2017-03-06 14:08 | Progress Notes ---
DATE: 03/06/2017 HISTORY OF PRESENT ILLNESS: A 67-year-old male, currently in the hospital, noted to be delirious, confused, AO to name. He is not quite sure where he is. He is a little bit more confused than yesterday, not really engaged today, but staff noting has been calm, cooperative, no agitation. He is in mittens, but no restraints. MENTAL STATUS EXAMINATION: Stated age. Mood: Okay. Affect: Flat. Thought processes were disoriented. No SI, no HI, no overt psychotic symptoms. PROVISIONAL DIAGNOSIS: Delirium ongoing, also psychosis, unspecified. RECOMMENDATIONS AND PLAN: The patient was waxing and waning mentation, will monitor and followup. Continue p.r.n. treatment. He has not been combative or agitated. JOB# [id number]
[2017-03-06] MEDS: Gentamicin 160 MG in Sodium Chloride 0.9% 100 ML IV SCH (14:18)
[2017-03-06] MEDS: Haloperidol Lactate 5 mg/mL 1mL Vial IM PRN (15:32)
[2017-03-06] MEDS: TPN 10%-70% CUSTOM IV SCH (18:50)
[2017-03-07] MEDS: Metoclopramide 5 mg/mL 2mL Vial IVP SCH ×3 (00:07→12:09)
[2017-03-07] MEDS: SODIUM CHLORIDE 0.9% IV SCH ×3 (00:23→11:59)
[2017-03-07] MEDS: SULBACTAM IV SCH ×3 (00:23→11:59)
[2017-03-07] MEDS: AMPICILLIN SODIUM IV SCH ×3 (00:23→11:59)
[2017-03-07] MEDS: Albuterol/Ipratropium Neb 3 ML AERS HHN SCH ×3 (01:21→12:55)
[2017-03-07 05:41] LABS: ALB/GLOB RATIO 0.9 (1.0-1.8); ALKALINE PHOSPHATASE 92 U/L (34-104); ANION GAP 10.3 (7.0-16.0); BILIRUBIN,TOTAL 0.5 mg/dL (0.3-1.0); BUN - UREA NITROGEN 7 mg/dL (7-25); CALCIUM SERUM 8.4 mg/dL (8.6-10.3); CARBON DIOXIDE 25.2 mEq/L (21.0-31.0); CHLORIDE 103 mEq/L (98-107); GLUCOSE 134 mg/dL (70-105); MAGNESIUM 1.9 mg/dL (1.9-2.7); PHOSPHOROUS 3.9 mg/dL (2.5-5.0); POTASSIUM SERUM 3.5 mEq/L (3.5-5.1); SGOT 27 U/L (13-39); SGPT/ALT 15 U/L (7-52); SODIUM SERUM 135 mEq/L (136-145)
[2017-03-07] MEDS: Lactobacillus Rhamnosus 10 Billion CFU Capsule PO SCH (09:38)
[2017-03-07] MEDS: Enoxaparin 30 mg/0.3 mL 0.3mL Syr SUBQ SCH (09:39)
[2017-03-07] MEDS: Nicotine 14 mg/24 hr Tdm TD SCH (09:39)
[2017-03-07] MEDS: INSULIN ASPART, RECOMBINANT 100 UNITS/ML SUBQ SCH (11:27)
[2017-03-07] MEDS: Gentamicin 160 MG in Sodium Chloride 0.9% 100 ML IV SCH (15:07)
== END 2017-03-07 17:04 | DRG 853 ==
LOC: ICU 21:18 → TELE 03-05 07:08
PROVIDERS: ADMIT Internal Medicine; ATTEND Internal Medicine
PROC: 0DB98ZX Excision of Duodenum, Via Natural or Artificial Opening Endoscopic, Diagnostic (ICD-10-PCS; 2017-02-26)
PROC: 0DB68ZX Excision of Stomach, Via Natural or Artificial Opening Endoscopic, Diagnostic (ICD-10-PCS; 2017-02-26)
PROC: 0FT40ZZ Resection of Gallbladder, Open Approach (ICD-10-PCS; principal; 2017-02-28)
PROC: 0DTJ0ZZ Resection of Appendix, Open Approach (ICD-10-PCS; 2017-02-28)
PROC: 0DB80ZZ Excision of Small Intestine, Open Approach (ICD-10-PCS; 2017-02-28)
PROC: 5A1935Z Respiratory Ventilation, Less than 24 Consecutive Hours (ICD-10-PCS; 2017-02-28)
DX: A41.9 Sepsis, unspecified organism (principal); J96.00 Acute respiratory failure, unspecified whether with hypoxia or hypercapnia; N17.9 Acute kidney failure, unspecified; I95.9 Hypotension, unspecified; K29.71 Gastritis, unspecified, with bleeding; J44.9 Chronic obstructive pulmonary disease, unspecified; K80.01 Calculus of gallbladder with acute cholecystitis with obstruction; K56.7 Ileus, unspecified; K31.7 Polyp of stomach and duodenum; E11.9 Type 2 diabetes mellitus without complications; F29 Unspecified psychosis not due to a substance or known physiological condition; M19.90 Unspecified osteoarthritis, unspecified site; Z66 Do not resuscitate; F10.20 Alcohol dependence, uncomplicated; K20.9 Esophagitis, unspecified; Z86.73 Personal history of transient ischemic attack (TIA), and cerebral infarction without residual deficits; Q43.0 Meckel's diverticulum (displaced) (hypertrophic)
CPT/HCPCS: 36415-UA; 36600-90; 71010-TC; 74000-TC; 74250-TC; 76700-TC; 78226-TC; 80048-TC; 80053-TC; 80074-90; 80076-TC; 80170-TC; 81001-TC; 81003-TC; 82105-90; 82140-TC; 82465-TC; 82803-TC; 82948-90; 83036-90; 83605; 83690-TC; 83735-TC; 83880-TC; 84100-TC; 84134-90; 84478-TC; 85007-TC; 85025-TC; 85027-TC; 85610-TC; 85730-TC; 86850-TC; 86900-TC; 86901-TC; 87070; 87070-90; 87075-90; 87086-90; 87205-90; 87230-TC; 87338-TC; 88304-TC; 88305-90; 88312-90; 93005; 94002; 94640; 94760; 96372; 97530; A9537; C9113; J0295; J1200; J1580; J1630; J1650; J1815; J2001; J2060; J2250; J2270; J2405; J2704; J2710; J2765; J2920; J2930; J3475; J3480; J7030; J7042; X3401; X3904; X6024; X6026; X6258; X6598; Z7610